=== PATIENT | male | born 1940 | race Caucasian/White ===

== ENCOUNTER 2019-10-20 13:58 | Inpatient (IN) | payer MEDICARE ==
[~2019-10-20] VITALS: Ht 167.6 cm; Wt 68.0 kg
[2019-10-20] VITALS (7 sets, daily range): BP systolic 130–153; BP diastolic 80–93
--- NOTE | 2019-10-20 13:58 | NUR ---
BIB [facility], PT BROUGHT DIRECTLY TO ROOM 2A, AND NURSING STAFF AT BEDSIDE.
--- NOTE | 2019-10-20 14:00 | NUR ---
TELESTROKE CALLED BY BERTRAND DORADO RN.
--- NOTE | 2019-10-20 14:00 | NUR ---
CODE STROKE ACTIVATED BY DR. LOPEZ.
--- NOTE | 2019-10-20 14:03 | NUR ---
Blood specimens drawn by surgical technology instructor.
--- NOTE | 2019-10-20 14:06 | NUR ---
PT TO CT VIA [facility] WITH ACLS GUIDELINES IN PLACE WITH CHIEF PRIVACY OFFICER AND MJRN (NURSING HEALTH ADMINISTRATION TEACHER).
[2019-10-20 14:11] LABS: BASOPHILS % (AUTO) 0.3 % (0.0-2.0); HEMOGLOBIN 15.1 g/dL (12.5-16.3); LYMPHOCYTES # (AUTO) 0.2 K/uL (20.0-40.0); LYMPHOCYTES % (AUTO) 1.3 % (20.5-51.5); MEAN CORPUSCULAR HEMOGLOBIN 37.6 uug (23.8-33.4); MEAN CORPUSCULAR HGB CONC 34 g/dL (32.5-36.3); MEAN CORPUSCULAR VOLUME 109.5 fL (73.0-96.2); MONOCYTES % (AUTO) 8.2 % (0.0-11.0); NEUTROPHILS # (AUTO) 11.3 K/uL (1.8-8.9); NEUTROPHILS % (AUTO) 90.2 % (38.5-71.5); PLATELET COUNT (AUTO) 312 K/uL (152-348); RED BLOOD CELL COUNT(AUTO) 4.01 MIL/uL (4.06-5.63); WHITE BLOOD COUNT (AUTO) 12.5 K/uL (3.6-10.2)
[2019-10-20 14:20] LABS: CREATININE 1.1 mg/dL (0.6-1.3); POTASSIUM 4.1 mmol/L (3.5-5.1)
--- NOTE | 2019-10-20 14:20 | NUR ---
PT BACK FROM CT.
[2019-10-20 14:26] LABS: BILIRUBIN,DIRECT 0.3 mg/dL (0.0-0.2); BILIRUBIN,TOTAL 1.2 mg/dL (0.2-1.0)
--- NOTE | 2019-10-20 14:45 | NUR ---
DR mendoza made aware of Pt's elevated BP and HR.
--- NOTE | 2019-10-20 14:45 | NUR ---
Pt has healing wound on rt coppola.
[2019-10-20] MEDS ORDERED: IV NORMAL SALINE 1000 ML BAG IV ONE (15:15)
[2019-10-20 15:20] LABS: *BILIRUBIN,URIN 2+ (NEGATIVE); *BLOOD, URINE 2+ (NEGATIVE); *COLOR,URINE AMBER (YELLOW); *KETONES,URINE 1+ (NEGATIVE); *UROBILINOGEN,URINE 0.2 E.U./dl (NORMAL); LEUKOCYTE ESTERASE ,URINE NEGATIVE (NEGATIVE); NITRITE, URINE NEGATIVE (NEGATIVE); PH,URINE 5.5 (5.0-8.0); UGLUCOSE NEGATIVE (NEGATIVE)
[2019-10-20 15:37] LABS: *CLARITY,URINE HAZY (CLEAR)
[2019-10-20 15:39] LABS: MUCUS,URINE MANY /LPF (0-FEW); SQUAMOUS EPITHELIAL CELL,UR FEW /HPF (NONE SEEN); WBC,URINE 0-3 /HPF (0-3)
[2019-10-20] MEDS ORDERED: MEROPENEM 1,000 MG in IV NORMAL SALINE 250 ML IV ONE (15:45)
[2019-10-20] MEDS ORDERED: VANCOMYCIN IV 1,000 MG in IV DEXTROSE 5% 250 ML IV ONE (15:45)
--- NOTE | 2019-10-20 16:00 | NUR ---
Per he has spoken with the patient regarding a lumbar puncture and the patient gave verbal consent. Pt is unable to sign written consent due to current medical condition.
[2019-10-20] MEDS ORDERED: LORAZEPAM 2 MG/1 ML VIAL ONE (16:09)
--- NOTE | 2019-10-20 16:10 | NUR ---
LUMBAR PUNCTURE DONE BY DR. LOPEZ, SPINAL FLUID SPECIMENS COLLECTED BY DR. LOPEZ (TUBES 1-4) AND BROUGHT TO LAB BY MYSELF.
[2019-10-20 16:12] LABS: BAND % (MANUAL) 18 % (0-10); LYMPHOCYTES % (MANUAL) 3 % (20-40); MONOCYTES % (MANUAL) 6 % (2-10); NEUTROPHILS % (MANUAL) 73 % (42-75)
[2019-10-20] MEDS ORDERED: LORAZEPAM 2 MG/1 ML VIAL IV ONE (16:15)
[2019-10-20] MEDS ORDERED: ASPIRIN 81 MG TAB.CHEW PO ONE (16:15)
[2019-10-20] MEDS ORDERED: NITROGLYCERIN OINT 1 GM PACKET TP ONE ×2 (16:15→16:19)
[2019-10-20] MEDS ORDERED: ASPIRIN 81 MG TAB.CHEW ONE (16:19)
[2019-10-20] MEDS ORDERED: MEROPENEM 1GM/NS 100ML IVPB **ER PYXIS ONLY IV ONE (16:20)
[2019-10-20] MEDS ORDERED: VANCOMYCIN IV 200 ML ONE (16:20)
[2019-10-20] MEDS ORDERED: HYDROCORTISONE SOD SUCCINATE 100 MG/2 ML VIAL IV ONE ×2 (16:30→16:57)
[2019-10-20 16:39] LABS: CSF GLUCOSE 59 mg/dL (40-70); CSF PROTEIN 68 mg/dL (15-45)
--- NOTE | 2019-10-20 17:08 | NUR ---
Pt is more disoriented,and confused. DR Evangelista made aware. pt's o2 sat on RA dropped to 88%, aware and ordered ABG prior to have him on O2.
--- NOTE | 2019-10-20 17:12 | NUR ---
RT at the bedside for ABG.
--- NOTE | 2019-10-20 17:18 | NUR ---
ER spoke to Dr Corbin, neurologist re pt's status.
[2019-10-20 17:26] LABS: ABG BASE EXCESS -2.8 mmol/L; ABG HCO3 20.6 mmol/L; ABG PCO2 31.8 mmHg (35.0-45.0); ABG PH 7.429 (7.350-7.450); ABG PO2 66.5 mmHg (75.0-100.0); ABG SITE RIGHT RADIAL; ABG TOTAL HEMOGLOBIN 12.9 G/dL (13.5-18.0); COHb 1.8 % (0.5-1.5); MetHb 0.3 % (0.0-1.5); VENT MODE ROOM AIR
[2019-10-20] MEDS ORDERED: BLOOD SUGAR DIAGNOSTIC 1 EACH STRIP VI SCH ×2 (18:00)
--- NOTE | 2019-10-20 18:15 | NUR ---
Pt received from ER A&Ox1, confused. VSS wnl. Pt stable and nad noted upon admission.
[2019-10-20 18:41] LABS: *AMPHETAMINE, URINE NEGATIVE (NEGATIVE); *BARBITURATE, URINE NEGATIVE (NEGATIVE); *CANNABINOID, URINE NEGATIVE (NEGATIVE); *COCCAINE, URINE NEGATIVE (NEGATIVE); *OPIATE, URINE NEGATIVE (NEGATIVE); *PHENCYCLIDINE SCREEN,URINE NEGATIVE (NEGATIVE)
--- NOTE | 2019-10-20 19:30 | NUR ---
Matthieu barnett is here to see patient given an update on patient's condition , patient's awake , with episodes of forgetfulness , vs stable , roberts catheter intact , no slurred speech able to use both hands , no fever , dinner offered and accepted , friends at bedside
[2019-10-20] MEDS: BLOOD SUGAR DIAGNOSTIC 1 EACH STRIP VI SCH (21:00)
[2019-10-20] MEDS: IV NS 1000 ML 1,000 ML IV PRN (21:28)
[2019-10-20] MEDS: ENOXAPARIN SODIUM 40 MG/0.4 ML DISP.SYRIN SQ SCH (21:30)
[2019-10-20] MEDS: SIMVASTATIN 40 MG TABLET PO SCH (21:30)
--- NOTE | 2019-10-20 23:30 | NUR ---
doctor called for blood sugar 176 , no order received , patient was fed dinner and ate 75 %
[2019-10-21] VITALS (12 sets, daily range): BP systolic 119–186; BP diastolic 61–102
--- NOTE | 2019-10-21 | NUR ---
* Maintains vital signs WNL * Maintains urine output > 30 ml/hr * Evidences normal skin turgor * Maintains optimal lab values * Maintains urine specific gravity WNL Addendum: 10/21/19 at 0000 by CARLA BARRETT RN Amended: Alissa added. Addendum: 10/21/19 at 0001 by CARLA BARRETT RN Amended: Links added. Addendum: 10/21/19 at 0001 by CARLA BARRETT RN Amended: Links added. Addendum: 10/21/19 at 0001 by CARLA BARRETT RN Amended: Links added. Addendum: 10/21/19 at 0002 by CARLA BARRETT RN Amended: Links added.
--- NOTE | 2019-10-21 | NUR ---
patient is awake , clear speech able to follow command with intermittent forgetful ness
--- NOTE | 2019-10-21 00:01 | NUR ---
* Maintains blood gasses WNL * Evidences usual mental status * Exhibits usual skin color Addendum: 10/21/19 at 0001 by CARLA BARRETT RN Amended: Alissa added. Addendum: 10/21/19 at 0001 by CARLA BARRETT RN Amended: Alissa added. Addendum: 10/21/19 at 0002 by CARLA BARRETT RN Amended: Links added.
--- NOTE | 2019-10-21 00:01 | NUR ---
* Maintains body temperature below 39 C degrees * Maintains respiratory rate and heart rate WNL * Maintains optimal lab values Addendum: 10/21/19 at 0001 by CARLA BARRETT RN Amended: Alissa solis. Addendum: 10/21/19 at 0001 by CARLA BARRETT RN Amended: Alissa added. Addendum: 10/21/19 at 0001 by CARLA BARRETT RN Amended: Links added. Addendum: 10/21/19 at 0002 by CARLA BARRETT RN Amended: Links added.
--- NOTE | 2019-10-21 00:01 | NUR ---
Maintains vital signs WNL * Evidences no purulent drainage from wounds, incisions, and tubes * Maintains optimal lab values Addendum: 10/21/19 at 0001 by CARLA BARRETT RN Amended: Links added. Addendum: 10/21/19 at 0002 by CARLA BARRETT RN Amended: Links added.
--- NOTE | 2019-10-21 00:02 | NUR ---
* Understands anatomy and physiology * Describes reportable s/s * Understands treatment plan * Understands medication regime Addendum: 10/21/19 at 0002 by CARLA BARRETT RN Amended: Links added.
[2019-10-21 04:51] LABS: BASOPHILS % (AUTO) 0.1 % (0.0-2.0); EOSINOPHILS % (AUTO) 0.1 % (0.0-7.0); HEMATOCRIT 36.2 % (36.7-47.1); HEMOGLOBIN 12.4 g/dL (12.5-16.3); LYMPHOCYTES # (AUTO) 0.1 K/uL (20.0-40.0); LYMPHOCYTES % (AUTO) 1.5 % (20.5-51.5); MEAN CORPUSCULAR HEMOGLOBIN 37.8 uug (23.8-33.4); MEAN CORPUSCULAR HGB CONC 34 g/dL (32.5-36.3); MONOCYTES # (AUTO) 0.7 K/uL (2.0-10.0); MONOCYTES % (AUTO) 7.7 % (0.0-11.0); NEUTROPHILS # (AUTO) 7.9 K/uL (1.8-8.9); NEUTROPHILS % (AUTO) 90.6 % (38.5-71.5); PLATELET COUNT (AUTO) 225 K/uL (152-348); RED BLOOD CELL COUNT(AUTO) 3.29 MIL/uL (4.06-5.63); WHITE BLOOD COUNT (AUTO) 8.7 K/uL (3.6-10.2)
[2019-10-21 05:16] LABS: BAND % (MANUAL) 1 % (0-10); LYMPHOCYTES % (MANUAL) 2 % (20-40); MONOCYTES % (MANUAL) 6 % (2-10); NEUTROPHILS % (MANUAL) 91 % (42-75)
[2019-10-21 05:18] LABS: CREATININE 0.8 mg/dL (0.6-1.3); POTASSIUM 4.1 mmol/L (3.5-5.1)
--- NOTE | 2019-10-21 05:30 | NUR ---
awake , able to follow command , speech clear , no distress , resting comfortbaly , roberts , iv intact
[2019-10-21] MEDS: IV NS 1000 ML 1,000 ML IV PRN ×2 (06:12→19:54)
[2019-10-21] MEDS: BLOOD SUGAR DIAGNOSTIC 1 EACH STRIP VI SCH ×2 (06:49→11:33)
--- NOTE | 2019-10-21 07:57 | NUR ---
OT here to see pt for eval.
[2019-10-21] MEDS: ASPIRIN EC 81 MG TABLET.DR PO SCH (08:00)
--- NOTE | 2019-10-21 09:57 | NUR ---
Physical therapy here to see pt for eval.
--- NOTE | 2019-10-21 11:10 | NUR ---
WOUND CARE CONSULT: PT PRESENTS WITH MULTIPLE WOUNDS PRESENT ON ADMISSION INCLUDING WOUND TO RT LATERAL LOWER LEG, LARGE SKIN TEAR TO LEFT UPPER ARM, SKIN TEARS TO RT ARM AND SHOULDER AND SKIN TEAR TO LEFT LOWER LEG WITH MULTIPLE AREAS OF BRUISING AND SKIN DISCOLORATION. RECOMMEND DPM CONSULT. DR OVALLES NOTIFIED OF DPM CONSULT REQUEST. PT ABLE TO ASSIST WITH TURNING AND REPOSITIONING AT THIS TIME. JONATHAN REES NOTED. PT CONTINENT AT THIS TIME. WILL SEE PRN. RECOMMENDATIONS MADE FOR SKIN PROTECTION AND WOUND CARE. DISCUSSED WITH NURSING STAFF. DEFER TO PODIATRY FOR LOWER EXTREMITIES. MD IN AGREEMENT WITH PLAN OF CARE. Addendum: 10/21/19 at 1113 by KENRICK HARDIN RN Amended: Links added.
--- NOTE | 2019-10-21 11:38 | NUR ---
Dr. Ferrara here to see pt. Full report given. okay to downgrade pt to telemetry status.
--- NOTE | 2019-10-21 12:11 | NUR ---
US tech here to see pt for 2D Echocardiogram.
--- NOTE | 2019-10-21 12:14 | NUR ---
Spoke with Dr. Ferrara and made aware regarding pt's persistently high blood pressure SBP 170's. New orders received and carried out.
[2019-10-21] MEDS: LISINOPRIL 20 MG TABLET PO SCH (12:26)
--- NOTE | 2019-10-21 15:18 | NUR ---
It Systems Administrator Consultation: 1:35pm: SW met with patient today. Patient is a 79 year old male, alert, oriented x 4. Patient was in his assigned CCU bed and receptive to meeting with this SW. Patient lives alone in a house in [place]. Patient reports never being , and not having any children. 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 Patient states that he had a fall at home in the hallway, possibly from his sneakers getting caught on the carpet. Patient believes he fell in the hallway, but was then found by his maid in the bathroom. Patient states not being able to remember the details of his fall and how he ended up in the bathroom. Patient's affect and behavior were WNL, and he maintained appropriate eye contact throughout this interview. Patient's thought process and speech were clear. Discharge plans discussed and patient states he will be returning home. Patient is closely followed by his PCP, Dr. Gutierrez Lama, , who has been the patient's physician for 20 years. Patient also has a close friend, Sangeetha Joseph, , who patient states is his emergency contact. SW administered the PHQ-9, and patient scored a 0 on it. Patient reported no concern over his emotional well-being. SW generated a discussion with the patient regarding supportive services, and patient inquired about resources on companies that make safety adjustments/stair installations for seniors living in their home and resources for caregiver agencies, stating that he may want to consider having a caregiver in the future. GRICEL provided the following resources: 1) Caregiver agencies: [facility], and [facility] [phone] 2) Companies for safety adjustments: [employer] [phone]; [employer] [phone]; [employer] [phone]; [employer] [phone]. No further SS interventions needed at this time, however security services manager will be available to the patient, if needed. Case management will assist patient with discharge planning.
--- NOTE | 2019-10-21 19:30 | NUR ---
CALLED EPIC SERVICE C/O PATIENT BP 184/65 HR 100 , PATIENT ASYMPTOMATIC PER SERVICE IT WILL BE SHARDA NOLAN .
--- NOTE | 2019-10-21 19:45 | NUR ---
PATIENT REFUSED DINNER FOR NOW AND WANTS ONLY HOT COFFEE ,GIVEN AND ASSISTED . HOB AND ASPIRATION PRECAUTION OBSERVED .
--- NOTE | 2019-10-21 20:00 | NUR ---
1929 -CALLED [facility] AGAIN C/O PATIENT BP SECOND CALL PER SERVICE IT WILL BE SHARDA NOWAK . AWAITING CALL BACK .
[2019-10-21] MEDS: SIMVASTATIN 40 MG TABLET PO SCH (20:12)
--- NOTE | 2019-10-21 20:30 | NUR ---
SPOKED WITH LAM NOWAK FROM [facility] AND DICTATED PATIENTS BP WITH ORDERS.
--- NOTE | 2019-10-21 20:50 | NUR ---
given hydralazine 10 mg ivp .pt bp 189/95 (132) MAP .HR 115,continue to monitor bp .
[2019-10-21] MEDS: hydrALAZINE HCL 20 MG/1 ML VIAL IV PRN (20:51)
[2019-10-21] MEDS: ENOXAPARIN SODIUM 40 MG/0.4 ML DISP.SYRIN SQ SCH (21:00)
--- NOTE | 2019-10-21 21:08 | NUR ---
patient refused Lovenox even after long teaching of benefits . he said he dont want to taqke medication and satrt on something he dont take at home .
--- NOTE | 2019-10-21 21:32 | NUR ---
report given to RN CITLALY ,USING SBARQ, LATEST BP 173/90 MM/HG ,given hydralazine ivf 10 mg advised INCOMING rn to monitor bp , no respiratory distress ,breathing even and unlabored rr 18 saturation 98 % .
--- NOTE | 2019-10-21 22:10 | NUR ---
Received patient from CCU transferred to Telemetry noted w/ Sinus Tach. Patient is A&Ox2. On O2 at 2lpm via NC. IV on R AC 20g intact and patent w/ IVF infusing. F/C intact and draining clear yellow urine. Patient noted w/ multiple skin discoloration/bruising on his both upper and lower extremities. Safety measures observed. Call light within reach
[2019-10-22 00:39] VITALS: BP 138/87
--- NOTE | 2019-10-22 01:00 | NUR ---
Received patient is laying in bed. A/O 2-3 with episodes of confusion. No distress noted. O2 2L NC, TELE ST at 115. BP 138/57. Temp 99.9. Notes bruises in bilateral upper extremities. Safety initiated. Call light within reach. Will continue to monitor.
--- NOTE | 2019-10-22 01:46 | NUR ---
Called MD to report fever despite cooling measures. Tylenol ordered and given. Will continue to monitor.
[2019-10-22] MEDS: ACETAMINOPHEN 325 MG TABLET PO PRN ×3 (02:31→20:47)
[2019-10-22] MEDS: hydrALAZINE HCL 20 MG/1 ML VIAL IV PRN (05:30)
--- NOTE | 2019-10-22 05:32 | NUR ---
BP elevated 174/90 HR 105. PRN hydralazine 10 mg given IVP, will closely monitor.
--- NOTE | 2019-10-22 05:35 | NUR ---
Patient slept t/o shift. Patient is A/O x 3. Right arm is still weak and painful when he tries to lift it up. Denies SOB. TELE ST at 105. Burns draining yellow clear urine. Patient no longer has a temp; 98.4. All meds given as ordered. All needs met. Safety and comfort measures maintained t/o shift.
[2019-10-22 05:47] VITALS: BP 174/90
[2019-10-22 06:21] LABS: BASOPHILS % (AUTO) 0.2 % (0.0-2.0); EOSINOPHILS # (AUTO) 0.1 K/uL (0.0-0.7); EOSINOPHILS % (AUTO) 1.1 % (0.0-7.0); HEMATOCRIT 36.1 % (36.7-47.1); HEMOGLOBIN 12.2 g/dL (12.5-16.3); LYMPHOCYTES # (AUTO) 0.1 K/uL (20.0-40.0); LYMPHOCYTES % (AUTO) 1.8 % (20.5-51.5); MEAN CORPUSCULAR HEMOGLOBIN 37.4 uug (23.8-33.4); MEAN CORPUSCULAR HGB CONC 34 g/dL (32.5-36.3); MEAN CORPUSCULAR VOLUME 110.7 fL (73.0-96.2); MONOCYTES # (AUTO) 0.9 K/uL (2.0-10.0); MONOCYTES % (AUTO) 11.6 % (0.0-11.0); NEUTROPHILS # (AUTO) 6.4 K/uL (1.8-8.9); NEUTROPHILS % (AUTO) 85.3 % (38.5-71.5); PLATELET COUNT (AUTO) 250 K/uL (152-348); RED BLOOD CELL COUNT(AUTO) 3.26 MIL/uL (4.06-5.63); WHITE BLOOD COUNT (AUTO) 7.5 K/uL (3.6-10.2)
[2019-10-22 06:32] LABS: CREATININE 0.6 mg/dL (0.6-1.3); MAGNESIUM 1.9 mg/dL (1.8-2.4); PHOSPHOROUS 2.4 mg/dL (2.5-4.9); POTASSIUM 3.3 mmol/L (3.5-5.1)
[2019-10-22] MEDS: IV NS 1000 ML 1,000 ML IV PRN ×2 (06:40→23:54)
--- NOTE | 2019-10-22 06:40 | NUR ---
BP now 156/76 after PRN Hydralazine. Will closely monitor.
--- NOTE | 2019-10-22 08:00 | NUR ---
RECEIVED PATIENT RESTING IN BED, AWAKE, ALERT, AND VERBALLY RESPONSIVE. NO SIGNS OF SLURRING OF SPEECH, ABLE TO FOLLOW COMMANDS. NOW WEAKNESS EXCEPT ON THE RIGHT ARM DUE TO THE FALL. ON O2 @ 2L SATURATING 93% WITH SLIGHT SOB ON EXERTION. NO WHEEZING OR SIGNS OF DISTRESS. SINUS TACHYCARDIA ON MONITOR 120.
[2019-10-22 08:06] LABS: TRIIODOTHYRONINE, FREE 1.5 pg/mL (2.0-4.4)
[2019-10-22] MEDS: ASPIRIN EC 81 MG TABLET.DR PO SCH (09:09)
[2019-10-22] MEDS: LISINOPRIL 20 MG TABLET PO SCH (09:11)
[2019-10-22 11:09] VITALS: BP 167/80
[2019-10-22] MEDS ORDERED: POTASSIUM CHLORIDE 20 MEQ POWDER PACKET PO ONE (11:30)
[2019-10-22] MEDS ORDERED: AMLODIPINE 5 MG TABLET PO SCH (11:30)
--- NOTE | 2019-10-22 12:00 | NUR ---
DR. HERNANDEZ AT BEDSIDE. EXAMINED PATIENT AND AWARE OF FAST HR-130-140 SR. PATIENT'S TEMP WAS 101.8. MD NOTIFIED AND ORDERED STAT BLOOD CULTURE, EKG AND CHEST X-RAY.
[2019-10-22] MEDS: AMLODIPINE 5 MG TABLET PO SCH (12:35)
[2019-10-22] MEDS ORDERED: VANCOMYCIN IV 1,500 MG in IV DEXTROSE 5% 500 ML IV SCH (14:00)
[2019-10-22] MEDS: PIPERACILLIN SODIUM/TAZOBACTAM 4.5 G in IV DEXTROSE 5% 50 ML IV SCH ×2 (14:38→21:01)
--- NOTE | 2019-10-22 15:10 | NUR ---
PHARMACY CLINICAL NOTES ( VANCOMYCIN DOSING) S: 79 YO male, who became febrile per MD's note: " Sepsis, likely pneumonia". MD ordered Zosyn and Vancomycin. O: BUN/SCR 16/0.6, WBC 7.5, T max 102.2, DOSING WT 68 KG , T 1/2 11.18 HRS A/P: Will dose Vanco as 1250 mg q16h , first dose now , esimate peak of 39 and trough of 16. pt is on Zosyn 4.5 gm q8h as well. Plan is to order level prior to 4th dose and follow up with renal fxn daily and adjust the dose as becomes necessary.
[2019-10-22 15:18] VITALS: BP 159/79
[2019-10-22] MEDS ORDERED: NEUTRA PHOS PACKET PO ONE (15:30)
[2019-10-22] MEDS: VANCOMYCIN IV 1,250 MG in IV DEXTROSE 5% 250 ML IV SCH (16:06)
--- NOTE | 2019-10-22 18:27 | NUR ---
SEEN BY ANASTACIA FOR ID FOLLOW-UP SEE NOTES
--- NOTE | 2019-10-22 19:30 | NUR ---
RECEIVED PT AWAKE, ALERT AND ORIENTEDX3. PT IN NO ACUTE DISTRESS. IV INTACT. SAFETY AND COMFORT PROVIDED. WILL CONTINUE TO MONITOR.
[2019-10-22 20:47] VITALS: BP 168/98
[2019-10-22] MEDS: SIMVASTATIN 20 MG TABLET PO SCH (20:47)
[2019-10-22] MEDS: ENOXAPARIN SODIUM 40 MG/0.4 ML DISP.SYRIN SQ SCH (20:49)
[2019-10-22 21:33] VITALS: BP 149/83
--- NOTE | 2019-10-22 21:50 | NUR ---
GIVEN TYLENOL FOR 99.6 TEMPERATURE. COOLING MEASURES DONE. RECENT TEMP IS 98.9. BLOOD PRESSURE WAS 149/83. PT IN NO ACUTE DISTRESS.
[2019-10-23] VITALS (7 sets, daily range): BP systolic 149–183; BP diastolic 87–102
[2019-10-23] MEDS: PIPERACILLIN SODIUM/TAZOBACTAM 4.5 G in IV DEXTROSE 5% 50 ML IV SCH ×3 (05:09→21:30)
[2019-10-23] MEDS: ACETAMINOPHEN 325 MG TABLET PO PRN ×3 (05:09→15:56)
[2019-10-23 05:49] LABS: CREATININE 0.8 mg/dL (0.6-1.3); MAGNESIUM 1.6 mg/dL (1.8-2.4); PHOSPHOROUS 2.4 mg/dL (2.5-4.9); POTASSIUM 3.6 mmol/L (3.5-5.1)
[2019-10-23 06:07] LABS: BASOPHILS # (AUTO) 0.1 K/uL (0.0-8.0); BASOPHILS % (AUTO) 0.8 % (0.0-2.0); EOSINOPHILS # (AUTO) 0.1 K/uL (0.0-0.7); EOSINOPHILS % (AUTO) 1.4 % (0.0-7.0); HEMATOCRIT 33.1 % (36.7-47.1); HEMOGLOBIN 11.3 g/dL (12.5-16.3); LYMPHOCYTES # (AUTO) 0.1 K/uL (20.0-40.0); LYMPHOCYTES % (AUTO) 1.9 % (20.5-51.5); MEAN CORPUSCULAR HEMOGLOBIN 37.4 uug (23.8-33.4); MEAN CORPUSCULAR HGB CONC 34 g/dL (32.5-36.3); MEAN CORPUSCULAR VOLUME 109.6 fL (73.0-96.2); MONOCYTES # (AUTO) 0.8 K/uL (2.0-10.0); MONOCYTES % (AUTO) 10.4 % (0.0-11.0); NEUTROPHILS # (AUTO) 6.6 K/uL (1.8-8.9); NEUTROPHILS % (AUTO) 85.5 % (38.5-71.5); PLATELET COUNT (AUTO) 241 K/uL (152-348); RED BLOOD CELL COUNT(AUTO) 3.02 MIL/uL (4.06-5.63); WHITE BLOOD COUNT (AUTO) 7.7 K/uL (3.6-10.2)
--- NOTE | 2019-10-23 06:15 | NUR ---
PT SLEPT COMFORTABLY. PT IN NO ACUTE DISTRESS. IV INTACT. CASTILLO INTACT.PRESCRIBED MEDICATION GIVEN AND PT TOLERATED IT WELL. PT TEMP IS ON THE HIGH SIDE. COOLING MEASURES DONE AND TYLENOL GIVEN. ALL NEEDS ARE MET.SAFETY AND COMFORT PROVIDED. WILL ENDORSE TO INCOMING NURSE FOR CONTINUITY OF CARE.
--- NOTE | 2019-10-23 08:00 | NUR ---
Pt is in no acute distress. Pt alert and oriented x 4. Discussed plan of care with patient re: temperature management and fall precaution. Pt agreeable with plan of care. Call light is within reach.
[2019-10-23] MEDS ORDERED: AMLODIPINE 5 MG TABLET PO SCH (09:00)
[2019-10-23] MEDS: VANCOMYCIN IV 1,250 MG in IV DEXTROSE 5% 250 ML IV SCH (09:04)
[2019-10-23] MEDS: ASPIRIN EC 81 MG TABLET.DR PO SCH (09:23)
[2019-10-23] MEDS: AMLODIPINE 5 MG TABLET PO SCH (09:25)
[2019-10-23] MEDS: LISINOPRIL 20 MG TABLET PO SCH (09:25)
--- NOTE | 2019-10-23 11:00 | NUR ---
PHARMACY CLINICAL NOTES ( VANCOMYCIN DOSING) S: 79 YO male, who became febrile per MD's note: " Sepsis, likely pneumonia". MD ordered Zosyn and Vancomycin. O: BUN/SCR 14/0.8, WBC 7.5 (10/22), T max 99, DOSING WT 68 KG , T 1/2 11.18 HRS A/P: Will dose Vanco as 1250 mg q16h for esimate peak of 39 and trough of 16. 2nd dose today at 0800. Will order torugh before 4th scheduled dose (due tomorrow at 1530). Will check level when available aand adjust as needed. Will follow
[2019-10-23] MEDS: IV NS 1000 ML 1,000 ML IV PRN (13:11)
[2019-10-23] MEDS: MAGNESIUM SULFATE/D5W 100 ML IV SCH ×2 (14:50→15:57)
--- NOTE | 2019-10-23 15:30 | NUR ---
Current temp 99.3 cooling measures and Tylenol effective. B/P rechecked and SBP @ 150's. Notified Dr Navarrete of tachycardia.
[2019-10-23] MEDS ORDERED: NEUTRA PHOS PACKET PO ONE (15:45)
--- NOTE | 2019-10-23 16:30 | NUR ---
Notified Dr Ferrara and made sure that he is aware of lumber puncture results CsF WBC 23.
--- NOTE | 2019-10-23 19:00 | NUR ---
PATIENT ALERT ORIENTED, NO SOB NO CHEST PAIN. PATIENT TELE MONITOR SINUS RHYTHM SINUS TACHY 109. PATIENT HAS LOW GRADE FEVER 99.4 GIVEN COOLING MEASURES. PATIENT DENIES PAIN AT THIS TIME. PATIENT BP ELEVATED, WILL RECHECK BP IN FEW MINUTES. PATIENT HAS NO S/S OF DISTRESS.
--- NOTE | 2019-10-23 19:02 | NUR ---
Pt is in no acute distress. Pt alert and oriented x 4. temperature management and fall precaution maintained this shift. fever 99.2 now, keeping cooling measures Call light is within reach.
[2019-10-23] MEDS ORDERED: OSELTAMIVIR PHOSPHATE 75 MG CAPSULE ONE (21:28)
[2019-10-23] MEDS: SIMVASTATIN 20 MG TABLET PO SCH (21:31)
[2019-10-23] MEDS: ENOXAPARIN SODIUM 40 MG/0.4 ML DISP.SYRIN SQ SCH (21:32)
[2019-10-23] MEDS: OSELTAMIVIR PHOSPHATE 75 MG CAPSULE PO SCH (21:42)
[2019-10-24] VITALS: BP 163/88
[2019-10-24] MEDS: VANCOMYCIN IV 1,250 MG in IV DEXTROSE 5% 250 ML IV SCH ×2 (00:15→17:47)
[2019-10-24] MEDS: hydrALAZINE HCL 20 MG/1 ML VIAL IV PRN ×3 (00:41→20:19)
[2019-10-24] MEDS: ACETAMINOPHEN 325 MG TABLET PO PRN (00:41)
--- NOTE | 2019-10-24 01:07 | NUR ---
PATIENT ALERT ORIENTED, NO CHEST PAIN, PATIENT WAS PUT ON OXYGEN AT 2LPM OXYGEN SAT BELOW 90. PATIENT HAS TEMP 101. TYLENOL 650MG PO GIVEN AND COOLING MEASURE GIVEN, PATIENT HAS NO S/S OF DISTRESS. NOTIFY DR. MARINELLI AWAITING FOR RESPONSE.
--- NOTE | 2019-10-24 01:28 | NUR ---
Dr. Kauffman ordered Rocephin 2g iv 24hour. Pt in no acute distress. Will continue to monitor.
[2019-10-24] MEDS ORDERED: CEFTRIAXONE 2 G VIAL IV SCH (01:45)
[2019-10-24] MEDS ORDERED: CEFTRIAXONE 2 G in IV DEXTROSE 5% 100 ML IV SCH (02:00)
[2019-10-24] MEDS ORDERED: CEFTRIAXONE 1 G VIAL ONE (02:38)
[2019-10-24] MEDS: IV NS 1000 ML 1,000 ML IV PRN ×2 (03:00→17:47)
[2019-10-24 05:00] VITALS: BP 163/73
[2019-10-24] MEDS: PIPERACILLIN SODIUM/TAZOBACTAM 4.5 G in IV DEXTROSE 5% 50 ML IV SCH ×2 (05:19→15:07)
[2019-10-24] MEDS ORDERED: HYDROCODONE/APAP 5-325MG TABLET PO PRN (06:00)
--- NOTE | 2019-10-24 06:00 | NUR ---
PATIENT COMPLAIN OF SEVERE BODY PAIN AND HEADACHES, NOTIFY DR. BIGGS WITH ORDER.
[2019-10-24 06:35] LABS: BASOPHILS % (AUTO) 0.5 % (0.0-2.0); EOSINOPHILS # (AUTO) 0.1 K/uL (0.0-0.7); HEMATOCRIT 33.2 % (36.7-47.1); HEMOGLOBIN 11.4 g/dL (12.5-16.3); LYMPHOCYTES # (AUTO) 0.1 K/uL (20.0-40.0); LYMPHOCYTES % (AUTO) 1.7 % (20.5-51.5); MEAN CORPUSCULAR HEMOGLOBIN 37.4 uug (23.8-33.4); MEAN CORPUSCULAR HGB CONC 34 g/dL (32.5-36.3); MEAN CORPUSCULAR VOLUME 108.8 fL (73.0-96.2); MONOCYTES # (AUTO) 0.9 K/uL (2.0-10.0); MONOCYTES % (AUTO) 10.3 % (0.0-11.0); NEUTROPHILS # (AUTO) 7.3 K/uL (1.8-8.9); NEUTROPHILS % (AUTO) 86.5 % (38.5-71.5); PLATELET COUNT (AUTO) 228 K/uL (152-348); RED BLOOD CELL COUNT(AUTO) 3.05 MIL/uL (4.06-5.63); WHITE BLOOD COUNT (AUTO) 8.4 K/uL (3.6-10.2)
[2019-10-24 06:48] LABS: CREATININE 0.9 mg/dL (0.6-1.3); MAGNESIUM 1.9 mg/dL (1.8-2.4); POTASSIUM 3.2 mmol/L (3.5-5.1)
--- NOTE | 2019-10-24 07:44 | NUR ---
PATIENT ALERT ORIENTED, NO SOB NO CHEST PAIN, TELE MONITOR SINUS TACHY 103, PATIENT HAS NO COMPLAIN OF HEADACHES ANYMORE, REFUSED PAIN MEDS AT THIS TIME, AFEBRILE, CONT TO MONITOR.
[2019-10-24] MEDS: ALLOPURINOL 100 MG TABLET PO SCH (08:52)
[2019-10-24] MEDS: predniSONE 5 MG TABLET PO SCH (08:52)
[2019-10-24] MEDS: LEVOTHYROXINE SODIUM 150 MCG TABLET PO SCH (08:52)
[2019-10-24] MEDS: ASPIRIN EC 81 MG TABLET.DR PO SCH (08:52)
[2019-10-24] MEDS ORDERED: predniSONE 2.5 MG TABLET PO SCH (09:00)
[2019-10-24] MEDS: OSELTAMIVIR PHOSPHATE 75 MG CAPSULE PO SCH ×2 (09:01→20:18)
[2019-10-24] MEDS: LISINOPRIL 20 MG TABLET PO SCH (09:03)
[2019-10-24] MEDS: AMLODIPINE 5 MG TABLET PO SCH (09:04)
--- NOTE | 2019-10-24 09:09 | NUR ---
PHARMACY CLINICAL NOTES ( VANCOMYCIN DOSING) S: 79 YO male, who became febrile per MD's note: " Sepsis, likely pneumonia". MD ordered Zosyn and Vancomycin. O: BUN/SCR 13/0.9, WBC 8.4, T max 101, DOSING WT 68 KG , T 1/2 11.18 HRS Trough pending today at 1530 A/P: Will continue Vanco as 1250 mg q16h for esimate peak of 39 and trough of 16. Trough due today at 1530. Will check when available and adjust regimen as needed. Will follow Addendum: 10/24/19 at 1631 by TRACI MOORE ADM TROUGH LEVEL 15 CONTINUE SAME DOSE OF VANCOMYCIN 1GM Q16H
[2019-10-24] MEDS ORDERED: POTASSIUM CHLORIDE 20 MEQ POWDER PACKET PO ONE (10:30)
[2019-10-24] MEDS ORDERED: LISINOPRIL 20 MG TABLET PO ONE (10:30)
[2019-10-24] MEDS ORDERED: AMLODIPINE 2.5 MG TABLET PO ONE (10:30)
[2019-10-24] MEDS ORDERED: IOHEXOL 350 100 ML INFUS..BTL ONE ×2 (11:17→12:14)
[2019-10-24] MEDS ORDERED: SWABABLE VALVE TRANSFER SET EA MC ONE (11:17)
[2019-10-24] MEDS ORDERED: IV NORMAL SALINE 250 ML IV ONE (11:17)
[2019-10-24 11:47] VITALS: BP 183/77
[2019-10-24 15:39] VITALS: BP 161/77
--- NOTE | 2019-10-24 19:25 | NUR ---
Patient calm and comfortable through out shift with no signs of distress; patient dressing changed; patient with espisode of high blood pressure; it systems administrator placed 1x orders for blood pressure medication; patient blood pressure reduced to baseline; patient had cta to rule out pe. report given to oncoming nurse.
--- NOTE | 2019-10-24 20:00 | NUR ---
PATIENT ALERT ORIENTED, NO SOB NO CHEST PAIN, TELE MONITOR SINUS TACHY 115, PATIENT COMPLAIN OF GENERALIZED DISCOMFORT, PATIENT BP ELEVATED, WILL MEDICATED FOR ELEVATED BP, AND FOR PAIN. PATIENT HAS MULTIPLE OPEN SKIN ON RIGHT AND LEFT ARMS. PATIENT BILATERAL ARMS OPEN SKIN TEAR ARE WEEPING, CONT TREATMENT ON BOTH ARMS, AND LEG OPEN WOUNDS. CONT TO MONITOR.
[2019-10-24 20:02] VITALS: BP 186/79
[2019-10-24] MEDS: ENOXAPARIN SODIUM 40 MG/0.4 ML DISP.SYRIN SQ SCH (20:23)
[2019-10-24] MEDS: CEFTRIAXONE 1 G in IV DEXTROSE 5% 50 ML IV SCH (21:11)
--- NOTE | 2019-10-24 22:30 | NUR ---
PATIENT ALERT ORIENTED, NO SOB NO CHEST PAIN. AFEBRILE, PATIENT SBP WENT DOWN TO 160, PATIENT HAS NO COMPLAIN OF PAIN, PAIN MEDICATION EFFECTIVE. CONT TO MONITOR.
[2019-10-25 00:07] VITALS: BP 160/86
[2019-10-25 04:00] VITALS: BP 160/67
[2019-10-25] MEDS: ACETAMINOPHEN 325 MG TABLET PO PRN ×2 (05:24→20:33)
--- NOTE | 2019-10-25 06:46 | NUR ---
PATIENT ALERT ORIENTED, NO COMPLAIN OF CHEST PAIN NO SOB NOTED. PATIENT TELE MONITOR SINUS TACHY, PATIENT COMPLAIN OF MILD PAIN, GIVEN TYLENOL FOR MILD PAIN. PATIENT MULTIPLE OPEN SKIN ON RIGHT, LEFT ARMS, R LEG, TX DONE. PATIENT OPEN SKIN WEEPING WITH CLEAR WATER FLUIDS IN MODERATE AMOUNT. WILL GET AN ORDER FOR WOUND. CONSULTS.
--- NOTE | 2019-10-25 06:50 | NUR ---
PATIENT WAS GIVEN COOLING MEASURES FOR LOW GRADE TEMP. TOLERATE WELL.
--- NOTE | 2019-10-25 06:50 | NUR ---
PATIENT STILL HAVE LOW TEMP, BP STABLE AT THIS TIME, CONT TO MONITOR.
[2019-10-25 07:32] LABS: BASOPHILS % (AUTO) 0.3 % (0.0-2.0); EOSINOPHILS # (AUTO) 0.1 K/uL (0.0-0.7); EOSINOPHILS % (AUTO) 1.1 % (0.0-7.0); HEMOGLOBIN 10.3 g/dL (12.5-16.3); LYMPHOCYTES # (AUTO) 0.1 K/uL (20.0-40.0); LYMPHOCYTES % (AUTO) 1.2 % (20.5-51.5); MEAN CORPUSCULAR HEMOGLOBIN 37.4 uug (23.8-33.4); MEAN CORPUSCULAR HGB CONC 34 g/dL (32.5-36.3); NEUTROPHILS # (AUTO) 8.1 K/uL (1.8-8.9); NEUTROPHILS % (AUTO) 86.4 % (38.5-71.5); PLATELET COUNT (AUTO) 261 K/uL (152-348); RED BLOOD CELL COUNT(AUTO) 2.76 MIL/uL (4.06-5.63); WHITE BLOOD COUNT (AUTO) 9.4 K/uL (3.6-10.2)
[2019-10-25 07:46] LABS: CREATININE 0.8 mg/dL (0.6-1.3); MAGNESIUM 1.9 mg/dL (1.8-2.4); PHOSPHOROUS 2.8 mg/dL (2.5-4.9); POTASSIUM 3.3 mmol/L (3.5-5.1)
[2019-10-25 08:06] LABS: *WEST NILE CSF IGG Positive (Negative)
[2019-10-25] MEDS: ASPIRIN EC 81 MG TABLET.DR PO SCH (08:57)
[2019-10-25] MEDS ORDERED: AMLODIPINE 5 MG TABLET PO SCH (09:00)
[2019-10-25] MEDS: VANCOMYCIN IV 1,250 MG in IV DEXTROSE 5% 250 ML IV SCH ×2 (09:05→23:44)
[2019-10-25] MEDS: LISINOPRIL 20 MG TABLET PO SCH (09:06)
[2019-10-25] MEDS: LEVOTHYROXINE SODIUM 150 MCG TABLET PO SCH (09:10)
[2019-10-25] MEDS: ALLOPURINOL 100 MG TABLET PO SCH (09:10)
[2019-10-25] MEDS: predniSONE 5 MG TABLET PO SCH (09:11)
[2019-10-25] MEDS: AMLODIPINE 10 MG TABLET PO SCH (09:11)
[2019-10-25] MEDS: OSELTAMIVIR PHOSPHATE 75 MG CAPSULE PO SCH ×2 (09:14→20:33)
--- NOTE | 2019-10-25 09:19 | NUR ---
PHARMACY CLINICAL NOTES ( VANCOMYCIN DOSING) S: To continue vanco dosing for this 79 YO male, for Sepsis, likely pneumonia. O: BUN/SCR 15/0.8, WBC 9.4, Temp 99.2, wt 68 kg ht 167 cm Trough on 10/24 at 1530: 15 A/P: Will continue same dose of Vanco as 1250 mg IVPB q16h for today. Will monitor renal function & adjust the dose if needed. Will follow
[2019-10-25 10:11] LABS: *WEST NILE CSF IGM Negative (Negative)
[2019-10-25 11:30] VITALS: BP 132/76
[2019-10-25] MEDS: hydrALAZINE HCL 20 MG/1 ML VIAL IV PRN (12:14)
[2019-10-25] MEDS ORDERED: POTASSIUM CHLORIDE 20 MEQ POWDER PACKET PO ONE (13:15)
[2019-10-25] MEDS ORDERED: FUROSEMIDE 20 MG/2 ML VIAL IV ONE (13:45)
[2019-10-25] MEDS: DILTIAZEM HCL CD 120 MG CAP.SR.24H PO SCH (15:41)
[2019-10-25] MEDS: hydrALAZINE HCL 50 MG TABLET PO SCH ×2 (15:42→22:15)
[2019-10-25 16:00] VITALS: BP 153/72
[2019-10-25] MEDS ORDERED: HOME MED MISCELLANEOUS XX SCH (17:00)
[2019-10-25] MEDS: MERCAPTOPURINE 50 MG PO SCH (18:29)
--- NOTE | 2019-10-25 18:42 | NUR ---
Patient calm and comfortable through out shift with no signs of distress; patient dressing changed; patient at [facility] .
--- NOTE | 2019-10-25 20:00 | NUR ---
Received patient laying in bed. No acute distress noted. Denies pain or SOB. A/O 3 with episodes of forgetfulness. TELE ST at 109. On O2 2L NC. Noted newly placed dressing on bilateral upper extremities. Bilateral lower extremities bruises.Safety initiated. Call light within reach will closely monitor.
[2019-10-25 20:05] VITALS: BP 144/60
--- NOTE | 2019-10-25 20:30 | NUR ---
Patient temperature elevated 100.1. Tylenol given, cooling measures initiated. Patient remains A/O x 3 with episodes of forgetfulness. TELE ST at 125. Denies pain. Will continue to monitor
[2019-10-25] MEDS: CEFTRIAXONE 1 G in IV DEXTROSE 5% 50 ML IV SCH (20:33)
[2019-10-25] MEDS: ENOXAPARIN SODIUM 40 MG/0.4 ML DISP.SYRIN SQ SCH (20:35)
[2019-10-26] VITALS: BP 139/60
[2019-10-26 04:00] VITALS: BP 155/71
--- NOTE | 2019-10-26 05:20 | NUR ---
Patient slept intermittently t/o shift. No acute distress noted. Denies pain or SOB. TELE ST at 112. Patient remains A/O x 3. Wound care. Vital signs stable. Burns draining clear and yellow urine. Medications given as ordered. Med compliant. Safety and comfort measures maintained t/o shift. All needs met.
[2019-10-26] MEDS: ACETAMINOPHEN 325 MG TABLET PO PRN ×2 (05:54→11:02)
[2019-10-26] MEDS: hydrALAZINE HCL 50 MG TABLET PO SCH ×3 (05:54→21:16)
[2019-10-26] MEDS: OSELTAMIVIR PHOSPHATE 75 MG CAPSULE PO SCH ×2 (09:53→20:06)
[2019-10-26] MEDS: MERCAPTOPURINE 50 MG PO SCH (09:53)
[2019-10-26] MEDS: AMLODIPINE 10 MG TABLET PO SCH (09:54)
[2019-10-26] MEDS: DILTIAZEM HCL CD 120 MG CAP.SR.24H PO SCH (09:54)
[2019-10-26] MEDS: LISINOPRIL 20 MG TABLET PO SCH (09:54)
[2019-10-26] MEDS: LEVOTHYROXINE SODIUM 150 MCG TABLET PO SCH (09:54)
[2019-10-26] MEDS: ASPIRIN EC 81 MG TABLET.DR PO SCH (09:54)
[2019-10-26] MEDS: ALLOPURINOL 100 MG TABLET PO SCH (09:54)
[2019-10-26] MEDS ORDERED: POTASSIUM CHLORIDE 20 MEQ TAB.PRT.SR PO ONE (10:30)
[2019-10-26 11:25] VITALS: BP 142/60
[2019-10-26] MEDS ORDERED: DILTIAZEM HCL CD 120 MG CAP.SR.24H PO ONE (12:00)
[2019-10-26] MEDS ORDERED: TEMAZEPAM 7.5 MG CAPSULE PO PRN (12:15)
--- NOTE | 2019-10-26 14:44 | NUR ---
PHARMACY CLINICAL NOTES ( VANCOMYCIN DOSING) S: To continue vanco dosing for this 79 YO male, for Sepsis, likely pneumonia. O: BUN/SCR 15/0.8 (10/25), WBC 9.4 (10/25), Temp 99.3, wt 68 kg ht 167 cm Trough on 10/24 at 1530: 15 A/P: Will continue same dose of Vanco as 1250 mg IVPB q16h for today. Will monitor renal function & adjust the dose if needed. Will follow
[2019-10-26 15:20] VITALS: BP 96/54
[2019-10-26] MEDS: VANCOMYCIN IV 1,250 MG in IV DEXTROSE 5% 250 ML IV SCH (16:40)
--- NOTE | 2019-10-26 18:21 | NUR ---
Patient AAOx3. IV on ANSLEY and L hand intact and patent. Low grade fever of 99.5; PRN Tylenol administered x1. Wound care done. No s/s of acute distress. No SOB noted; receiving 2L o2 via NC. Sinus tach on monitor with HR of 109. All needs attended at all times. Call light wthin reach. Will endorse care accordingly.
--- NOTE | 2019-10-26 19:30 | NUR ---
RECEIVED PT AWAKE, ALERT AND ORIENTEDX4. PT N NO ACUTE DISTRESS. IV INTACT. PT ON 2L NASAL CANNULA. SAFETY AND COMFORT PROVIDED. WILL CONTINUE TO MONITOR.
[2019-10-26 20:03] VITALS: BP 113/62
[2019-10-26] MEDS: CEFTRIAXONE 1 G in IV DEXTROSE 5% 50 ML IV SCH (20:06)
[2019-10-26] MEDS: ENOXAPARIN SODIUM 40 MG/0.4 ML DISP.SYRIN SQ SCH (20:09)
--- NOTE | 2019-10-26 21:30 | NUR ---
PT PRIMARY PHYSICIAN SAW HIM. PT IN NO ACUTE DISTRESS.
--- NOTE | 2019-10-26 22:13 | NUR ---
GIVEN TYLENOL AND COOLING MEASURES FOR 100 TEMP. RECENT TEMPERATURE IS 98.3. PT AFEBRILE.
[2019-10-27 00:34] VITALS: BP 114/66
[2019-10-27 04:58] VITALS: BP 113/71
[2019-10-27] MEDS: hydrALAZINE HCL 50 MG TABLET PO SCH (05:36)
--- NOTE | 2019-10-27 06:04 | NUR ---
PT SLEPT INTERMITTENTLY. PT IN NO ACUTE DISTRESS. IV INTACT. CASTILLO INTACT. DRESSING CHANGED. PRESCRIBED MEDICATION GIVEN AND PT TOLERATED IT WELL. PT AFEBRILE. SAFETY AND COMFORT PROVIDED. WILL ENDORSE TO INCOMING NURSE FOR CONTINUITY OF CARE.
[2019-10-27 06:59] LABS: BASOPHILS # (AUTO) 0.1 K/uL (0.0-8.0); BASOPHILS % (AUTO) 0.8 % (0.0-2.0); EOSINOPHILS # (AUTO) 0.1 K/uL (0.0-0.7); EOSINOPHILS % (AUTO) 1.1 % (0.0-7.0); HEMATOCRIT 28.8 % (36.7-47.1); HEMOGLOBIN 9.9 g/dL (12.5-16.3); LYMPHOCYTES # (AUTO) 0.1 K/uL (20.0-40.0); LYMPHOCYTES % (AUTO) 1.6 % (20.5-51.5); MEAN CORPUSCULAR HEMOGLOBIN 37.6 uug (23.8-33.4); MEAN CORPUSCULAR HGB CONC 34 g/dL (32.5-36.3); MEAN CORPUSCULAR VOLUME 109.6 fL (73.0-96.2); MONOCYTES # (AUTO) 1.1 K/uL (2.0-10.0); MONOCYTES % (AUTO) 14.2 % (0.0-11.0); NEUTROPHILS # (AUTO) 6.6 K/uL (1.8-8.9); NEUTROPHILS % (AUTO) 82.3 % (38.5-71.5); PLATELET COUNT (AUTO) 383 K/uL (152-348); RED BLOOD CELL COUNT(AUTO) 2.63 MIL/uL (4.06-5.63)
[2019-10-27 07:10] LABS: CREATININE 0.8 mg/dL (0.6-1.3); MAGNESIUM 1.9 mg/dL (1.8-2.4); PHOSPHOROUS 3.3 mg/dL (2.5-4.9); POTASSIUM 3.9 mmol/L (3.5-5.1)
--- NOTE | 2019-10-27 07:40 | NUR ---
Received patient in Bed, awake and verbally responsive. No signs of distress noted. No SOB. saturating 97% 2LPM. No Complain of Pain or discomfort. Patient will have MRI of Brain w/ w/o Contrast, will be picker tender helper at 1030AM, Kept clean and comfortable. Will continue to monitor.
[2019-10-27] MEDS: VANCOMYCIN IV 1,250 MG in IV DEXTROSE 5% 250 ML IV SCH (08:09)
[2019-10-27] MEDS: ASPIRIN EC 81 MG TABLET.DR PO SCH (08:54)
[2019-10-27] MEDS: OSELTAMIVIR PHOSPHATE 75 MG CAPSULE PO SCH (08:54)
[2019-10-27] MEDS: LEVOTHYROXINE SODIUM 150 MCG TABLET PO SCH (08:55)
[2019-10-27] MEDS: AMLODIPINE 10 MG TABLET PO SCH (08:55)
[2019-10-27] MEDS: ALLOPURINOL 100 MG TABLET PO SCH (08:55)
[2019-10-27] MEDS: MERCAPTOPURINE 50 MG PO SCH (09:00)
[2019-10-27] MEDS ORDERED: DILTIAZEM HCL CD 120 MG CAP.SR.24H PO SCH (09:00)
--- NOTE | 2019-10-27 09:02 | NUR ---
PHARMACY CLINICAL NOTES ( VANCOMYCIN DOSING) S: To continue vanco dosing for this 79 YO male, for Sepsis, likely pneumonia. O: BUN/SCR 19/0.8 , WBC 8, Temp 98.4 wt 68 kg ht 167 cm Trough on 10/24 at 1530: 15 A/P: Will continue same dose of Vanco as 1250 mg IVPB q16h for today. Will monitor renal function & adjust the dose if needed. Will follow
[2019-10-27] MEDS: LISINOPRIL 20 MG TABLET PO SCH (09:03)
[2019-10-27] MEDS ORDERED: GADOTERIDOL 279.3 MG/ML, 15 ML VIAL ONE (10:57)
--- NOTE | 2019-10-27 11:00 | NUR ---
Patient was Picked up by 2 EMT in stable condition for MRI w/ w/o contrast at [facility].
[2019-10-27 11:04] VITALS: BP 161/69
--- NOTE | 2019-10-27 12:01 | NUR ---
Patient came back from [facility] in stable condition.
[2019-10-27] MEDS ORDERED: FUROSEMIDE 20 MG/2 ML VIAL IV ONE (12:45)
[2019-10-27 15:02] VITALS: BP 105/50
--- NOTE | 2019-10-27 18:14 | NUR ---
Patient with Order to be discharge to ARU today, Patient made aware, Gave Report to Edgar ORELLANA from ARU. Discharge Instructions given and verbalized Understanding. 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 ANSLEY midline and Left hand Peripheral line will not be removed, d/t IV ATB. All belongings was sent and signed by patient. Patient was discharge to ARU via Bed in stable condition.
== END 2019-10-27 18:30 | DRG 871 ==
LOC: ER 13:58 → CCU 17:36 → TELE3 10-21 22:30
PROC: 009U3ZX Drainage of Spinal Canal, Percutaneous Approach, Diagnostic (ICD-10-PCS; principal; 2019-10-20)
DX: A41.9 Sepsis, unspecified organism (principal); G93.41 Metabolic encephalopathy; I21.A1 Myocardial infarction type 2; J18.9 Pneumonia, unspecified organism; J96.01 Acute respiratory failure with hypoxia; I50.31 Acute diastolic (congestive) heart failure; M62.82 Rhabdomyolysis; G81.91 Hemiplegia, unspecified affecting right dominant side; K51.90 Ulcerative colitis, unspecified, without complications; D68.59 Other primary thrombophilia; E87.2 Acidosis; L03.114 Cellulitis of left upper limb; L03.113 Cellulitis of right upper limb; N17.9 Acute kidney failure, unspecified; G91.2 (Idiopathic) normal pressure hydrocephalus; R29.810 Facial weakness; R40.2242 Coma scale, best verbal response, confused conversation, at arrival to emergency department; R40.2362 Coma scale, best motor response, obeys commands, at arrival to emergency department; R40.2142 Coma scale, eyes open, spontaneous, at arrival to emergency department; R29.704 NIHSS score 4; Z85.850 Personal history of malignant neoplasm of thyroid; E89.0 Postprocedural hypothyroidism; Z79.890 Hormone replacement therapy; Z79.52 Long term (current) use of systemic steroids; Z85.118 Personal history of other malignant neoplasm of bronchus and lung; N28.1 Cyst of kidney, acquired; E78.5 Hyperlipidemia, unspecified; Z74.09 Other reduced mobility; I11.0 Hypertensive heart disease with heart failure; K40.20 Bilateral inguinal hernia, without obstruction or gangrene, not specified as recurrent; K76.0 Fatty (change of) liver, not elsewhere classified; M19.90 Unspecified osteoarthritis, unspecified site; M25.78 Osteophyte, vertebrae; M48.02 Spinal stenosis, cervical region; M85.80 Other specified disorders of bone density and structure, unspecified site; M46.02 Spinal enthesopathy, cervical region; I67.2 Cerebral atherosclerosis; F03.90 Unspecified dementia, unspecified severity, without behavioral disturbance, psychotic disturbance, mood disturbance, and anxiety; L98.8 Other specified disorders of the skin and subcutaneous tissue; T38.0X5A Adverse effect of glucocorticoids and synthetic analogues, initial encounter; Z91.81 History of falling; Z86.73 Personal history of transient ischemic attack (TIA), and cerebral infarction without residual deficits
CPT/HCPCS: 36415; 36600; 70030-TC; 70450; 70553; 71045; 71275; 72125; 73030; 73590; 80307; 83605; 83735; 83921; 84100; 84157; 84443; 84480; 84481; 85025; 85651; 85730; 87040; 87086; 87400; 89051; 93005; 93307; A4217; A4663; A9579; G0378; J0360; J0696; J1650; J1720; J1940; J2060; J2185; J2543; J3370; J3475; J3490; J7030; J7050; J7060; J7512; J8499; Q9967

== ENCOUNTER 2019-10-27 17:41 | Inpatient (IN) | payer MEDICARE ==
[~2019-10-27] VITALS: Ht 167.6 cm; Wt 68.0 kg
[~2019-10-27 17:41] MED LIST: ALLO100T PO; AMLO10TA7 PO; ASPI-618 PO; ATOR40TA PO; BISO1TAB4 PO; CAPT25TA3 PO; CEFT1FRO2 IV; CLON0.1T PO; CLON1TAB12 PO; DILT120C87 PO; ENOX40DI SQ; LEVO150T PO; LISI-603 PO; MERC50TA PO; MESA1.2T PO; MESA10002 RC; OMEP20TA5 PO; PRED2.5T PO; RXVAN XX; TEMA7.5C PO
[2019-10-27 18:31] VITALS: BP 121/62
--- NOTE | 2019-10-27 18:38 | NUR ---
PATIENT IS ALERT, ORIENTED X4, VERBALLY RESPONSIVE, NO SOB, RESP EVEN NONLABORED,SKIN WARM AND DRY TO TOUCH, ON 2 LITER O2 VIA NASAL CANULA, SATURATING AT 94%, MULTIPLE SKIN TEARS, NO DISTRESS NOTED AT THIS TIME, ADMITTED FROM [facility] FLOOR.
[2019-10-27] MEDS ORDERED: TEMAZEPAM 7.5 MG CAPSULE PO PRN (18:45)
--- NOTE | 2019-10-27 19:30 | NUR ---
Admission report received from Am nurse. Routine admission care done. Plan of care initiated.
--- NOTE | 2019-10-27 19:34 | NUR ---
PATIENT NOTED WITH MULTIPLE DISCOLORATION TO BOTH UPPER AND LOWER EXTREMITIES, VERY THIN SKIN, NOTED WITH PITTING EDEMA TO BOTH LOWER AND UPPER EXTREMITIES # PITTING EDEMA. Addendum: 10/27/19 at 1936 by MARKUS PETERSEN RN, RN MULTIPLE OPEN AREAS TO BOTH LOWER AND UPPER EXTREMITIES
[2019-10-27 20:56] VITALS: BP 129/57
[2019-10-27] MEDS ORDERED: CEFTRIAXONE 1 G in IV DEXTROSE 5% 50 ML IV SCH (21:00)
[2019-10-27] MEDS: ATORVASTATIN 40 MG TABLET PO SCH (21:05)
[2019-10-27] MEDS: ENOXAPARIN SODIUM 40 MG/0.4 ML DISP.SYRIN SQ SCH (21:08)
[2019-10-27 22:18] VITALS: BP 129/57
[2019-10-28] MEDS ORDERED: VANCOMYCIN IV 1,000 MG in IV DEXTROSE 5% 250 ML IV SCH ×2
[2019-10-28 05:39] VITALS: BP 150/60
--- NOTE | 2019-10-28 05:51 | NUR ---
Shift End Report: Vs stable. Slept well. No complaint presented all night. All needs attended and met. No significant event reported. Continue current rehab plan of care.
[2019-10-28 08:26] LABS: FERRITIN 1504 ng/mL (26-388); LACTATE DEHYDROGENASE 346 U/L (85-227)
[2019-10-28] MEDS: AMLODIPINE 10 MG TABLET PO SCH (08:31)
[2019-10-28] MEDS: ASPIRIN EC 81 MG TABLET.DR PO SCH (08:31)
[2019-10-28 08:32] VITALS: BP 148/69
[2019-10-28] MEDS: DILTIAZEM HCL CD 240 MG CAP.SR.24H PO SCH (08:32)
[2019-10-28] MEDS: ALLOPURINOL 100 MG TABLET PO SCH (08:32)
[2019-10-28] MEDS: LISINOPRIL 20 MG TABLET PO SCH (08:33)
[2019-10-28] MEDS: MERCAPTOPURINE 50 MG PO SCH (08:33)
[2019-10-28 08:51] LABS: IRON, SERUM 29 ug/dL (50-175)
[2019-10-28] MEDS ORDERED: DILTIAZEM HCL CD 120 MG CAP.SR.24H PO SCH (09:00)
[2019-10-28] MEDS ORDERED: MERCAPTOPURINE PO SCH (09:00)
[2019-10-28] MEDS ORDERED: LEVOTHYROXINE SODIUM 150 MCG TABLET PO SCH (09:00)
[2019-10-28 10:24] LABS: *RHEUMATOID FACTOR SCREEN NEGATIVE (NEGATIVE)
--- NOTE | 2019-10-28 10:52 | NUR ---
PHARMACY CLINICAL NOTES ( VANCOMYCIN DOSING) S: To continue vanco dosing for this 79 YO male, for Sepsis, likely pneumonia (transferred to Rehab on 10/27). O: BUN/SCR 19/0.8 (10/27) , WBC 8 (10/27), Temp 98.1 wt 68 kg ht 167 cm Trough on 10/24 at 1530: 15 A/P: Will continue same dose of Vanco as 1250 mg IVPB q16h for today. Next dose due today at 1400. Will monitor renal function & adjust the dose if needed. Will follow
[2019-10-28 12:48] LABS: BASOPHILS % (AUTO) 0.1 % (0.0-2.0); EOSINOPHILS # (AUTO) 0.1 K/uL (0.0-0.7); EOSINOPHILS % (AUTO) 1.3 % (0.0-7.0); HEMATOCRIT 28.7 % (36.7-47.1); HEMOGLOBIN 9.6 g/dL (12.5-16.3); LYMPHOCYTES # (AUTO) 0.1 K/uL (20.0-40.0); LYMPHOCYTES % (AUTO) 1.4 % (20.5-51.5); MEAN CORPUSCULAR HEMOGLOBIN 36.7 uug (23.8-33.4); MEAN CORPUSCULAR HGB CONC 34 g/dL (32.5-36.3); MEAN CORPUSCULAR VOLUME 109.5 fL (73.0-96.2); MONOCYTES % (AUTO) 11.1 % (0.0-11.0); NEUTROPHILS # (AUTO) 7.9 K/uL (1.8-8.9); NEUTROPHILS % (AUTO) 86.1 % (38.5-71.5); PLATELET COUNT (AUTO) 449 K/uL (152-348); RED BLOOD CELL COUNT(AUTO) 2.62 MIL/uL (4.06-5.63); WHITE BLOOD COUNT (AUTO) 9.2 K/uL (3.6-10.2)
[2019-10-28 13:01] LABS: BILIRUBIN,TOTAL 0.5 mg/dL (0.2-1.0); POTASSIUM 3.9 mmol/L (3.5-5.1); TOTAL PROTEIN, SERUM 5.4 g/dL (6.4-8.2)
[2019-10-28] MEDS ORDERED: VANCOMYCIN IV 1,250 MG in IV DEXTROSE 5% 250 ML IV SCH (14:00)
[2019-10-28 14:03] LABS: BAND % (MANUAL) 4 % (0-10); EOSINOPHILS % (MANUAL) 2 % (0-8); LYMPHOCYTES % (MANUAL) 4 % (20-40); MONOCYTES % (MANUAL) 10 % (2-10); NEUTROPHILS % (MANUAL) 80 % (42-75)
--- NOTE | 2019-10-28 16:04 | NUR ---
PATIENT IS ALERT, ORIENTED X4, NO SOB, ON O2 2 LITER VIA NASAL CANULA SATURATING AT 93%, NO DISTRESS NOTED, MULTIPLE WOUNDS ARE BEING TREATED ORDERED, NO SIGNS AND SYMPTOMS OF INFECTION NOTED AT WOUND SITES, CASTILLO DCD, CONTINE ON ATB IV, TOLERATED WELL.
--- NOTE | 2019-10-28 16:10 | NUR ---
INTERDISCIPLINARY TEAM CONFERENCE
[2019-10-28 16:11] VITALS: BP 134/71
--- NOTE | 2019-10-28 18:04 | NUR ---
DEMONSTRATED PATIENT HOW TO USE URINAL, PATIENT WAS ABLE TO DEMONSTRATE BACK SUCCESSFULLY. PATIENT VOIDED ONCE, BLADDER SCAN 589ML, NO DISTENDED BLADDER NOTED, DNP CHYRYL MADE AWARE WITH ORDER TO MONITOR, IF BLADDER SCAN IS MORE THAN 1000ML STARIGHT CATH OR IF PATIENT IS UNCOMFORTABLE, NOTIFY ORAL AND MAXILLOFACIAL SURGEON OR MD. PATIENT STATED THAT THIS TIME, HE FEELS FINE, CONTINUE TO MONITOR, AND ENDORSE TO NEXT SHIFT ACCORDINGLY
--- NOTE | 2019-10-28 18:19 | NUR ---
PATIENT REPRESENTED WITH MULTIPLE WOUNDS, SKIN TEARS, TX IN PROGRESS ORDERED, RIGHT KNEE LATERAL WOUND BED IS YELLOW, PERIWOUND IS RED, HOWEVER NO SIGNS AND SYMPTOMS OF INFECTION NOTED, NO ODOR NOTED, WOUND CONSULT IS IN PLACE. CONTINUE TO MONITOR
--- NOTE | 2019-10-28 19:45 | NUR ---
Awake , in bed during initial rounds. Dr. Lama at bedside, assessing the patient. Not in distress, no s/s of pain/discomforts at this time. HOB elevated with O2 2L via NC saturating 98% at this time. Safety measure and fall precaution maintained. Continue care as planned.
[2019-10-28] MEDS: ATORVASTATIN 40 MG TABLET PO SCH (20:09)
[2019-10-28] MEDS: ENOXAPARIN SODIUM 40 MG/0.4 ML DISP.SYRIN SQ SCH (20:09)
[2019-10-28 20:36] VITALS: BP 139/64
--- NOTE | 2019-10-28 20:55 | NUR ---
Dr Olguin at the bedside, conversing with the patient. No new order given at this time.
[2019-10-29 05:01] VITALS: BP 130/69
--- NOTE | 2019-10-29 05:32 | NUR ---
Shift End Report: Vs stable. Slept good. Incontinent of urine. Unable to use urinal provided at bedside. Slept good. Good skin/ash care provided after each incontinence. All needs attended and met. No significant event reported all night. Continue current rehab plan of care .
[2019-10-29] MEDS: LEVOTHYROXINE SODIUM 100 MCG TABLET PO SCH (06:36)
--- NOTE | 2019-10-29 06:52 | NUR ---
Bladder scan performed, obtained 68ml. Patient voided per urinal earlier 220 ml clear yello urine. Will endorse.
[2019-10-29] MEDS ORDERED: LEVOTHYROXINE SODIUM 150 MCG TABLET PO SCH (07:00)
[2019-10-29 07:16] LABS: MAGNESIUM 1.8 mg/dL (1.8-2.4); PHOSPHOROUS 3.2 mg/dL (2.5-4.9); POTASSIUM 3.8 mmol/L (3.5-5.1)
[2019-10-29 07:17] LABS: BASOPHILS # (AUTO) 0.1 K/uL (0.0-8.0); BASOPHILS % (AUTO) 0.6 % (0.0-2.0); EOSINOPHILS # (AUTO) 0.2 K/uL (0.0-0.7); EOSINOPHILS % (AUTO) 2.3 % (0.0-7.0); HEMATOCRIT 29.7 % (36.7-47.1); HEMOGLOBIN 10.1 g/dL (12.5-16.3); LYMPHOCYTES # (AUTO) 0.1 K/uL (20.0-40.0); LYMPHOCYTES % (AUTO) 1.2 % (20.5-51.5); MEAN CORPUSCULAR HEMOGLOBIN 37.1 uug (23.8-33.4); MEAN CORPUSCULAR HGB CONC 34 g/dL (32.5-36.3); MEAN CORPUSCULAR VOLUME 108.9 fL (73.0-96.2); MONOCYTES # (AUTO) 0.7 K/uL (2.0-10.0); MONOCYTES % (AUTO) 7.3 % (0.0-11.0); NEUTROPHILS # (AUTO) 8.7 K/uL (1.8-8.9); NEUTROPHILS % (AUTO) 88.6 % (38.5-71.5); PLATELET COUNT (AUTO) 495 K/uL (152-348); RED BLOOD CELL COUNT(AUTO) 2.73 MIL/uL (4.06-5.63); WHITE BLOOD COUNT (AUTO) 9.8 K/uL (3.6-10.2)
--- NOTE | 2019-10-29 07:39 | NUR ---
Patient noted resting in bed with eyes closed, no complaints of pain at this time, no signs of distress noted, call light in reach, bed locked and in lowest position, all needs met at this time
[2019-10-29 08:00] VITALS: BP 116/65
[2019-10-29] MEDS: ASPIRIN EC 81 MG TABLET.DR PO SCH (09:32)
[2019-10-29] MEDS: MERCAPTOPURINE 50 MG PO SCH (09:32)
[2019-10-29] MEDS: DILTIAZEM HCL CD 240 MG CAP.SR.24H PO SCH (09:32)
[2019-10-29] MEDS: AMLODIPINE 10 MG TABLET PO SCH (09:33)
[2019-10-29] MEDS: LISINOPRIL 20 MG TABLET PO SCH (09:33)
[2019-10-29] MEDS: ALLOPURINOL 100 MG TABLET PO SCH (09:34)
[2019-10-29 13:06] LABS: *ANTI-SCLERODERMA-70 AB <0.2 AI (0.0-0.9); *IMMUNOGLOBULIN G, SERUM 435 mg/dL (700-1600); *SJOGREN'S ANTI-SS-A <0.2 AI (0.0-0.9); *SJOGREN'S ANTI-SS-B <0.2 AI (0.0-0.9); *SMITH ANTIBODIES <0.2 AI (0.0-0.9); ANTI-DNA(DS) AB, QN <1 IU/mL (0-9); IMMUNOGLOBULIN A, SERUM 122 mg/dL (61-437); IMMUNOGLOBULIN M, SERUM 48 mg/dL (15-143)
[2019-10-29 16:02] VITALS: BP 115/52
--- NOTE | 2019-10-29 19:48 | NUR ---
Awake during initial rounds. Denies any pain/discomforts at this time. Safety measure and fall precaution maintained. Continue care as planned.
[2019-10-29 19:56] VITALS: BP 124/67
[2019-10-29] MEDS: ATORVASTATIN 40 MG TABLET PO SCH (20:16)
[2019-10-29] MEDS: ENOXAPARIN SODIUM 40 MG/0.4 ML DISP.SYRIN SQ SCH (20:17)
[2019-10-30 04:55] VITALS: BP 123/73
[2019-10-30] MEDS: LEVOTHYROXINE SODIUM 100 MCG TABLET PO SCH (06:07)
--- NOTE | 2019-10-30 06:58 | NUR ---
Shift End Report: Slept good. VS stable. No complaint presented . All needs attended and met. No significant event reported all night. Continue current rehab of care.
--- NOTE | 2019-10-30 07:53 | NUR ---
Patient noted noted resting in bed with eyes closed, no facial cues of pain of pain, no signs of distress noted, call light in reach, bed locked and in lowest position, all needs met
[2019-10-30 08:00] VITALS: BP 131/64
[2019-10-30] MEDS: ASPIRIN EC 81 MG TABLET.DR PO SCH (09:11)
[2019-10-30] MEDS: ALLOPURINOL 100 MG TABLET PO SCH (09:12)
[2019-10-30] MEDS: LISINOPRIL 20 MG TABLET PO SCH (09:14)
[2019-10-30] MEDS: AMLODIPINE 10 MG TABLET PO SCH (09:14)
[2019-10-30] MEDS: DILTIAZEM HCL CD 240 MG CAP.SR.24H PO SCH (09:15)
[2019-10-30] MEDS: MERCAPTOPURINE 50 MG PO SCH (09:16)
[2019-10-30] MEDS ORDERED: FUROSEMIDE 20 MG TABLET PO ONE (12:15)
--- NOTE | 2019-10-30 15:31 | NUR ---
INDIVIDUALIZED PLAN OF CARE
[2019-10-30 19:24] VITALS: BP 119/59
--- NOTE | 2019-10-30 19:40 | NUR ---
Awake during initial rounds. Denies any pain/discomforts,HOB elevated with continuous O2 at 2L via NC, saturating 100% at this time, tapered down to 1L for now and monitor. Offered urinal for urination, voided well. Safety measure and fall precaution maintained. Continue care as planned.
[2019-10-30] MEDS: ATORVASTATIN 40 MG TABLET PO SCH (20:20)
[2019-10-30] MEDS: ENOXAPARIN SODIUM 40 MG/0.4 ML DISP.SYRIN SQ SCH (20:21)
[2019-10-31 05:02] VITALS: BP 123/100
[2019-10-31] MEDS: LEVOTHYROXINE SODIUM 100 MCG TABLET PO SCH (05:57)
--- NOTE | 2019-10-31 06:50 | NUR ---
Shift End Report: VS stable. Slept good. No complaint presented. All needs attended and met. Continue current rehab plan of care.
--- NOTE | 2019-10-31 07:32 | NUR ---
Patient noted sitting up in wheelchair at this time, no complaints of pain , no signs of distress noted, call light in reach, bed locked and in lowest position, all needs met
[2019-10-31 08:00] VITALS: BP 120/67
[2019-10-31] MEDS: DILTIAZEM HCL CD 240 MG CAP.SR.24H PO SCH (09:00)
[2019-10-31] MEDS: LISINOPRIL 20 MG TABLET PO SCH (09:00)
[2019-10-31] MEDS: ASPIRIN EC 81 MG TABLET.DR PO SCH (09:05)
[2019-10-31] MEDS: ALLOPURINOL 100 MG TABLET PO SCH (09:05)
[2019-10-31] MEDS: MERCAPTOPURINE 50 MG PO SCH (09:17)
[2019-10-31 11:14] LABS: A/G RATIO 0.8 (0.7-1.7); ALPHA-1-GLOBULIN 0.4 g/dL (0.0-0.4); ALPHA-2-GLOBULIN 0.8 g/dL (0.4-1.0); BETA GLOBULIN 0.8 g/dL (0.7-1.3); GAMMA GLOBULIN 0.4 g/dL (0.4-1.8); GLOBULIN, TOTAL 2.5 g/dL (2.2-3.9); M-SPIKE Not Observed g/dL (Not Observed)
--- NOTE | 2019-10-31 12:50 | NUR ---
WOUND CARE CONSULT: PT PRESENTS WITH MULTIPLE BRUISES, SKIN DISCOLORATIONS, LEFT ARM SKIN TEAR, DRY SCABS AND RT LATERAL LOWER LEG WOUND, ALL PRESENT ON ADMISSION. RECOMMEND DPM CONSULT/FOLLOW UP FOR RT LEG. RECOMMENDATIONS MADE FOR SKIN PROTECTION AND WOUND CARE. DISCUSSED WITH NURSING STAFF. WILL SEE PRN. RAMIREZ IN AGREEMENT WITH PLAN OF CARE. CURRENT FELIPE SCORE IS 16. DR OVALLES NOTIFIED OF DPM CONSULT REQUEST. Addendum: 10/31/19 at 1252 by KENRICK HARDIN RN Amended: Links added.
[2019-10-31 16:56] VITALS: BP 111/93
--- NOTE | 2019-10-31 19:35 | NUR ---
Awake during initial rounds. Denies any pain/discomforts at this time. Good ash care/skin care rendered after bladder incontinence. Rashes on both groin area still visible, applied Z guard as ordered and needed. Encouraged use of urinal if able. Continue care as planned.
[2019-10-31 20:00] VITALS: BP 129/62
[2019-10-31] MEDS: ATORVASTATIN 40 MG TABLET PO SCH (20:36)
[2019-10-31] MEDS: ENOXAPARIN SODIUM 40 MG/0.4 ML DISP.SYRIN SQ SCH (20:37)
[2019-11-01 04:00] VITALS: BP 138/71
--- NOTE | 2019-11-01 06:08 | NUR ---
Shift End Report: VS stable. No complaint presented. All needs attended and met. No significant event reported all night. Slept good. Voided qs with no problem. Continue current rehab plan of care.
[2019-11-01] MEDS: LEVOTHYROXINE SODIUM 100 MCG TABLET PO SCH (06:19)
[2019-11-01 07:34] LABS: MAGNESIUM 1.9 mg/dL (1.8-2.4); PHOSPHOROUS 3.5 mg/dL (2.5-4.9); POTASSIUM 4.1 mmol/L (3.5-5.1)
[2019-11-01 07:39] LABS: EOSINOPHILS # (AUTO) 0.3 K/uL (0.0-0.7); LYMPHOCYTES # (AUTO) 0.1 K/uL (20.0-40.0); MONOCYTES # (AUTO) 0.1 K/uL (2.0-10.0)
[2019-11-01 08:12] LABS: BASOPHILS % (AUTO) 0.1 % (0.0-2.0); EOSINOPHILS % (AUTO) 4.5 % (0.0-7.0); HEMATOCRIT 26.7 % (36.7-47.1); HEMOGLOBIN 9.1 g/dL (12.5-16.3); MEAN CORPUSCULAR HEMOGLOBIN 37.1 uug (23.8-33.4); MEAN CORPUSCULAR HGB CONC 34 g/dL (32.5-36.3); MEAN CORPUSCULAR VOLUME 108.5 fL (73.0-96.2); MONOCYTES % (AUTO) 1.7 % (0.0-11.0); NEUTROPHILS # (AUTO) 6.1 K/uL (1.8-8.9); NEUTROPHILS % (AUTO) 91.7 % (38.5-71.5); PLATELET COUNT (AUTO) 549 K/uL (152-348)
[2019-11-01 08:14] LABS: RED BLOOD CELL COUNT(AUTO) 2.46 MIL/uL (4.06-5.63); WHITE BLOOD COUNT (AUTO) 6.7 K/uL (3.6-10.2)
[2019-11-01] MEDS ORDERED: AMLODIPINE 10 MG TABLET PO SCH (09:00)
[2019-11-01 09:17] VITALS: BP 146/71
[2019-11-01] MEDS: ASPIRIN EC 81 MG TABLET.DR PO SCH (09:28)
[2019-11-01] MEDS: AMLODIPINE 5 MG TABLET PO SCH (09:30)
[2019-11-01] MEDS: ALLOPURINOL 100 MG TABLET PO SCH (09:31)
[2019-11-01] MEDS: DILTIAZEM HCL CD 240 MG CAP.SR.24H PO SCH (09:31)
[2019-11-01] MEDS: LISINOPRIL 20 MG TABLET PO SCH (09:32)
[2019-11-01] MEDS: MERCAPTOPURINE 50 MG PO SCH (09:32)
[2019-11-01 16:06] VITALS: BP 139/72
--- NOTE | 2019-11-01 18:26 | NUR ---
PATIENT IS ALERT, ORIENTED X4, NO SOB, RESP EVEN NONLABORED,SKIN WARM AND DRY TO TOUCH, NO DISTRESS NOTED
--- NOTE | 2019-11-01 19:20 | NUR ---
PATIENT IS VOIDING GOOD AMOUNT OF CLEAR YELLOW URINE, IN URINAL,
--- NOTE | 2019-11-01 19:35 | NUR ---
Awake, in bed, not in distress. denies any pain/discomforts at this time. Safety measure and fall precaution maintained. Continue care as planned.
[2019-11-01 20:27] VITALS: BP 144/68
[2019-11-01] MEDS: ATORVASTATIN 40 MG TABLET PO SCH (20:38)
[2019-11-01] MEDS: ENOXAPARIN SODIUM 40 MG/0.4 ML DISP.SYRIN SQ SCH (20:39)
[2019-11-01] MEDS ORDERED: LIDOCAINE HCL 1% 20 ML VIAL IJ PRN (20:45)
[2019-11-02 04:00] VITALS: BP 132/73
[2019-11-02] MEDS: LEVOTHYROXINE SODIUM 100 MCG TABLET PO SCH (06:04)
--- NOTE | 2019-11-02 06:28 | NUR ---
Shift End report: Vs stable. No complaint presented. Voiding good. No bladder discomforts presented. Good skin/ash care rendered after each B/B incontinence. Refused to have pictures done on his wounds last night and wait till AM for the wound care. Will endorse. All needs attended and met. No significant event reported all night. Continue current rehab plan of care.
[2019-11-02 07:27] LABS: BASOPHILS % (AUTO) 0.3 % (0.0-2.0); EOSINOPHILS # (AUTO) 0.3 K/uL (0.0-0.7); EOSINOPHILS % (AUTO) 4.1 % (0.0-7.0); HEMATOCRIT 26.3 % (36.7-47.1); LYMPHOCYTES # (AUTO) 0.1 K/uL (20.0-40.0); LYMPHOCYTES % (AUTO) 1.5 % (20.5-51.5); MEAN CORPUSCULAR HGB CONC 34 g/dL (32.5-36.3); MEAN CORPUSCULAR VOLUME 107.8 fL (73.0-96.2); MONOCYTES # (AUTO) 0.1 K/uL (2.0-10.0); MONOCYTES % (AUTO) 1.1 % (0.0-11.0); NEUTROPHILS # (AUTO) 5.9 K/uL (1.8-8.9); PLATELET COUNT (AUTO) 528 K/uL (152-348); WHITE BLOOD COUNT (AUTO) 6.3 K/uL (3.6-10.2)
[2019-11-02 07:34] LABS: RED BLOOD CELL COUNT(AUTO) 2.44 MIL/uL (4.06-5.63)
--- NOTE | 2019-11-02 07:37 | NUR ---
PATIENT IS IN BED, NO SOB,R NJ EVEN NONLABORED, USING O2 1 LITER VIA NASAL CANULA, NO DISTRESS NOTED, ALERT, ORIENTED X3, VERBALLY RESPONSIVE
[2019-11-02 07:41] LABS: BILIRUBIN,TOTAL 0.6 mg/dL (0.2-1.0); CREATININE 0.9 mg/dL (0.6-1.3); POTASSIUM 3.7 mmol/L (3.5-5.1); TOTAL PROTEIN, SERUM 5.5 g/dL (6.4-8.2)
[2019-11-02 07:47] VITALS: BP 130/78
[2019-11-02] MEDS: ASPIRIN EC 81 MG TABLET.DR PO SCH (08:45)
[2019-11-02] MEDS: ALLOPURINOL 100 MG TABLET PO SCH (08:46)
[2019-11-02] MEDS: AMLODIPINE 5 MG TABLET PO SCH (08:46)
[2019-11-02] MEDS: DILTIAZEM HCL CD 240 MG CAP.SR.24H PO SCH (08:47)
[2019-11-02] MEDS: MERCAPTOPURINE 50 MG PO SCH (08:48)
[2019-11-02] MEDS: LISINOPRIL 20 MG TABLET PO SCH (08:48)
--- NOTE | 2019-11-02 12:49 | NUR ---
PATIENT REFUSES HIS SCD PUMPS STRONGLY, RISKS AND BENEFITS EXPLAINED, PATIENT IS AMBULATORY
--- NOTE | 2019-11-02 13:01 | NUR ---
PATIENT IS VOIDING GOOD AMOUNT OF URINE
[2019-11-02 15:13] VITALS: BP 120/62
[2019-11-02] MEDS ORDERED: HYDROCODONE/APAP 5-325MG TABLET PO ONE (18:30)
--- NOTE | 2019-11-02 18:54 | NUR ---
MD IS BEDSIDE IS PERFORMING BONE MARROW BIOPSY AND ASPIRATION PROCEDURE, TOLERATING WELL, CONTINUE TO MONITOR.
--- NOTE | 2019-11-02 19:07 | NUR ---
STATUS POST BONE MARROW BIOPSY, PATIENT IS ALERT, ORIENTED X4, VERBALLY RESPONSIVE, TOLERATED PROCEDURE WELL, CONTINUE TO MONITOR, VITALS STABLE, BP 133/73. PULSE 78, RESP 18, TEMP 98.0, PAIN 4/10 GENERALIZED PAIN. NO ACTIVE BLEEDING NOTED.
[2019-11-02 19:18] LABS: BASOPHILS % (AUTO) 0.6 % (0.0-2.0); EOSINOPHILS # (AUTO) 0.2 K/uL (0.0-0.7); EOSINOPHILS % (AUTO) 3.4 % (0.0-7.0); HEMATOCRIT 25.4 % (36.7-47.1); HEMOGLOBIN 8.7 g/dL (12.5-16.3); LYMPHOCYTES # (AUTO) 0.1 K/uL (20.0-40.0); LYMPHOCYTES % (AUTO) 1.4 % (20.5-51.5); MEAN CORPUSCULAR HEMOGLOBIN 36.8 uug (23.8-33.4); MEAN CORPUSCULAR HGB CONC 34 g/dL (32.5-36.3); MEAN CORPUSCULAR VOLUME 107.6 fL (73.0-96.2); MONOCYTES % (AUTO) 0.7 % (0.0-11.0); NEUTROPHILS # (AUTO) 5.9 K/uL (1.8-8.9); NEUTROPHILS % (AUTO) 93.9 % (38.5-71.5); PLATELET COUNT (AUTO) 495 K/uL (152-348); WHITE BLOOD COUNT (AUTO) 6.3 K/uL (3.6-10.2)
--- NOTE | 2019-11-02 19:19 | NUR ---
SHAD DCD STATUS POST BONE MARROW BIOPSY Addendum: 11/02/19 at 1920 by MARKUS PETERSEN RN RN ORDER OBTAINED FROM DR CARRI TRIPP
[2019-11-02 19:24] LABS: RED BLOOD CELL COUNT(AUTO) 2.36 MIL/uL (4.06-5.63)
--- NOTE | 2019-11-02 19:35 | NUR ---
Awake in bed, not in distress, continuous O2 at 1L/min via NC saturating 96% at this time. Denied any pain/discomforts at this time S/P Bone marrow biopsy and aspiration at bedside by Dr. Jasso, Qa Manager, tolerated well. No active bleeding noted on site. Safety measure and fall precaution maintained. Continue care as planned.
[2019-11-02] MEDS: ATORVASTATIN 40 MG TABLET PO SCH (20:29)
[2019-11-02 21:54] VITALS: BP 105/60
[2019-11-03] MEDS: ACETAMINOPHEN 325 MG TABLET PO PRN ×2 (01:10→08:24)
--- NOTE | 2019-11-03 05:46 | NUR ---
Shift End Report: VS stable. Slept good. Complaint of itchiness on his back, applied lotion with good relief. Presented complaint of pain as well on his right hip that radiated to his back, Tylenol given as ordered and needed with relief. All needs attended and met. No significant event reported. Continue current rehab plan of care.
[2019-11-03] MEDS: LEVOTHYROXINE SODIUM 100 MCG TABLET PO SCH (06:05)
[2019-11-03 07:50] VITALS: BP 126/69
[2019-11-03] MEDS: ASPIRIN EC 81 MG TABLET.DR PO SCH (08:24)
[2019-11-03] MEDS: AMLODIPINE 5 MG TABLET PO SCH (08:24)
[2019-11-03] MEDS: ALLOPURINOL 100 MG TABLET PO SCH (08:25)
[2019-11-03] MEDS: DILTIAZEM HCL CD 240 MG CAP.SR.24H PO SCH (08:25)
[2019-11-03] MEDS: MERCAPTOPURINE 50 MG PO SCH (08:26)
[2019-11-03] MEDS: LISINOPRIL 20 MG TABLET PO SCH (08:26)
--- NOTE | 2019-11-03 09:39 | NUR ---
Patient received in bed alert and oriented times four. Patient is stable, no s/s of distress, no SOB. Patient received morning medication with no problem. Patient is on 1L oxygen with O2 saturation at 95%. Patient complaint of sharp pain 8/10 on right leg radiating to the groin. Gave patient Tylenol 650 mg. Safety and items such as call light are within reach. ANSLEY IV midline single lumen is intact and patent. Will continue to monitor patient.
--- NOTE | 2019-11-03 13:44 | NUR ---
Patient is complaining of right upper leg pain 02/07. Pt states that the pain is dull and radiates to his groin/ lower back. Patient states that the pain is only there when he is moving his leg. Patient is concerned that the pain is related to the bone franks biopsy done yesterday. Called Dr. Chung to notify her of patient concern. Waiting for call back.
--- NOTE | 2019-11-03 14:35 | NUR ---
Dr. Chung called back. No new order. Patient was made aware that pain is not related to bone franks biopsy.
[2019-11-03 14:42] VITALS: BP 113/49
--- NOTE | 2019-11-03 18:21 | NUR ---
END OF SHIFT: Patient was stable throughout shift. Patient received daily exercise with PT. Patient had complaint about right upper leg pain /, gave Tylenol and pt. states pain got better /. Notified Dr. Chung about pain and patients concern related to bone franks biopsy. Dr. Chung came in to speak with pt and told him that pain is not related to bone franks biopsy. Pt. is on 1L of Oxygen with nasal canula with O2 saturation of 96%. Woundcare was completed on patient and wounds are looking better and are healing. Medications administered on time. Patient safety and items need within reach through entire shift. Will endorse the next shift accordingly
[2019-11-03] MEDS: Z GUARD REMEDY PASTE 57 GM TUBE TOP PRN (18:36)
[2019-11-03] MEDS: ATORVASTATIN 40 MG TABLET PO SCH (20:19)
[2019-11-03 20:36] VITALS: BP 138/72
--- NOTE | 2019-11-03 20:47 | NUR ---
Received pt resting in bed and watching tv. AAO x4. Pt had visitor but sent them away because he does not want to entertain. On 1L O2 via NC, tolerating well. No acute distress noted. Denies pain/ discomfort. Due med given as ordered. Safety measures maintained. Call light and personal items within reach. Will continue to monitor.
[2019-11-03 22:00] VITALS: BP 138/78
[2019-11-04 05:15] VITALS: BP 137/68
[2019-11-04] MEDS: LEVOTHYROXINE SODIUM 100 MCG TABLET PO SCH (06:11)
[2019-11-04] MEDS: ACETAMINOPHEN 325 MG TABLET PO PRN ×2 (08:08→17:22)
[2019-11-04] MEDS: AMLODIPINE 5 MG TABLET PO SCH (08:08)
[2019-11-04] MEDS: ASPIRIN EC 81 MG TABLET.DR PO SCH (08:08)
[2019-11-04] MEDS: ALLOPURINOL 100 MG TABLET PO SCH (08:09)
[2019-11-04] MEDS: LISINOPRIL 20 MG TABLET PO SCH (08:09)
[2019-11-04] MEDS: DILTIAZEM HCL CD 240 MG CAP.SR.24H PO SCH (08:09)
[2019-11-04] MEDS: MERCAPTOPURINE 50 MG PO SCH (08:10)
[2019-11-04 08:23] VITALS: BP 134/77
--- NOTE | 2019-11-04 11:07 | NUR ---
INTERDISCIPLINARY TEAM CONFERENCE
--- NOTE | 2019-11-04 15:37 | NUR ---
MIDLINE DISCONTINUED, ORDER OBTAINED BY MD, NO DISTRESS NOTED, PATIENT IS ALERT, ORIENTED X4, NO SOB, RESP EVEN NONLABORED,SKIN WARM AND DRY TO TOUCH WOUND CARE PREFORMED,NO SIGNS AND SYMPTOMS OF INFECTION NOTED AT WOUND SITES, CONTINUE TO MONITOR.
--- NOTE | 2019-11-04 16:04 | NUR ---
WOUND CARE DONE, WOUNDS NOTED WITH DRY SCABS, HEALING WELL, EXCEPT RIGHT LATERAL KNEE. RIGHT LATERAL KNEE WOUND STILL NOTED WITH SLOUGH, NO DRAINAGE, NO ODOR NOTED. NO INCREASED ERYTHEMA NOTED AROUND PERIWOUND AREA. SKIN TEARS TO BOTH UPPER ARMS ARE HEALING WELL, LEFT UPPER ARM SKIN TEAR HAS SCABBED. BOTH LOWER LEGS SKIN TEARS ARE SCABBED. RIGHT HIP ABRASION RESOLVED. CONTINUE WITH TX ORDERED.
--- NOTE | 2019-11-04 16:07 | NUR ---
PATIENT NOTED WITH REDNESS TO PERINEAL AREA, LOTRIMIN ORDERED. CONTINUE TO KEEP DRY.
[2019-11-04 16:10] VITALS: BP 117/58
[2019-11-04] MEDS ORDERED: CLOTRIMAZOLE 1% CREAM 30 GM TUBE TOP SCH (17:00)
--- NOTE | 2019-11-04 17:57 | NUR ---
PATIENT VOIDED IN THE BATHROOM, VOIDED X4, NO DISTENDED BLADDER, PATIENT DENIED ANY DISCOMFORT
[2019-11-04 19:45] VITALS: BP 116/68
[2019-11-04] MEDS: ATORVASTATIN 40 MG TABLET PO SCH (20:15)
[2019-11-04] MEDS: CLOTRIMAZOLE 1% CREAM 30 GM TUBE TOP SCH (20:15)
--- NOTE | 2019-11-04 21:19 | NUR ---
Received pt resting in bed and watching tv. AAO x4. No acute distress noted, 95% on room air. Denies pain/ discomfort. Due med given as ordered. Pt requested for sleeping med as he was having difficulty sleeping the past few nights, PRN restoril given. Wound care done. Lotrimin applied on groin area. Safety measures maintained. Call light and personal items within reach. Will continue to monitor.
[2019-11-05 05:39] VITALS: BP 134/72
[2019-11-05] MEDS: LEVOTHYROXINE SODIUM 100 MCG TABLET PO SCH (06:16)
--- NOTE | 2019-11-05 07:45 | NUR ---
patient noted sitting up in bed watching tv, assisted with urinal at this time, no complaints of pain, no signs of distress noted, call light in reach, bed locked and in lowest position, all needs met at this time,
[2019-11-05 08:09] VITALS: BP 124/81
[2019-11-05] MEDS: ASPIRIN EC 81 MG TABLET.DR PO SCH (08:15)
[2019-11-05] MEDS: ALLOPURINOL 100 MG TABLET PO SCH (08:16)
[2019-11-05] MEDS: LISINOPRIL 20 MG TABLET PO SCH (08:16)
[2019-11-05] MEDS: MERCAPTOPURINE 50 MG PO SCH (08:16)
[2019-11-05] MEDS: AMLODIPINE 5 MG TABLET PO SCH (08:16)
[2019-11-05] MEDS: DILTIAZEM HCL CD 240 MG CAP.SR.24H PO SCH (08:16)
[2019-11-05] MEDS: CLOTRIMAZOLE 1% CREAM 30 GM TUBE TOP SCH ×2 (08:17→17:15)
[2019-11-05 14:25] VITALS: BP 112/66
[2019-11-05 19:48] VITALS: BP 135/68
[2019-11-05] MEDS: ATORVASTATIN 40 MG TABLET PO SCH (21:11)
--- NOTE | 2019-11-06 05:49 | NUR ---
Received patient in bed. AAO x3-4, sometimes forgetful. Not in acute distress or SOB. On room air. Able to make needs known. No Complain of pain. VS checked. Assisted him to the bathroom as needed. Physical assessment done. All due medication given and well tolerated. All needs attended promptly. Skin care rendered. Fall prevention observed. Safety measures maintained. Bed in low and lock position, side rails up x2 for safety. Call light and frequently used items within reach. Continue to monitor and will endorse to oncoming nurse accordingly.
[2019-11-06] MEDS: LEVOTHYROXINE SODIUM 100 MCG TABLET PO SCH (06:39)
[2019-11-06 07:10] VITALS: BP 145/70
--- NOTE | 2019-11-06 07:28 | NUR ---
patient noted resting in bed with eyes closed, no complaints of pain at this time, no signs of distress, call light in reach, bed locked and in lowest position, all needs met
[2019-11-06 08:00] VITALS: BP 143/76
[2019-11-06] MEDS: ASPIRIN EC 81 MG TABLET.DR PO SCH (08:35)
[2019-11-06] MEDS: MERCAPTOPURINE 50 MG PO SCH (08:35)
[2019-11-06] MEDS: DILTIAZEM HCL CD 240 MG CAP.SR.24H PO SCH (08:36)
[2019-11-06] MEDS: ALLOPURINOL 100 MG TABLET PO SCH (08:36)
[2019-11-06] MEDS: LISINOPRIL 20 MG TABLET PO SCH (08:37)
[2019-11-06] MEDS: CLOTRIMAZOLE 1% CREAM 30 GM TUBE TOP SCH ×2 (08:37→18:34)
[2019-11-06] MEDS: AMLODIPINE 5 MG TABLET PO SCH (08:37)
[2019-11-06 16:00] VITALS: BP 110/62
--- NOTE | 2019-11-06 18:44 | NUR ---
New orders Per MD Corbin 1)Patient is to have a physical therapy evaluation 2) XR lumbar puncture for possible normal pressure hydrocephalus 3) CSF glucose, CSF panel and CSF protein 4) MRI of Neck 5) repeat PT eval. and document how patient tolerated walking post lumbar puncture
--- NOTE | 2019-11-06 19:35 | NUR ---
Received patient awake in bed, watching TV at this time. Denies any pain/discomforts at this time. Multiple skin discolorations/skin tears/visually noticeable on BUE/BLE's. Able to ambulate with FWW to the bathroom with minimal assist. Safety measures and fall precaution maintained. Continue care as planned.
[2019-11-06 20:21] VITALS: BP 135/71
[2019-11-06] MEDS: ATORVASTATIN 40 MG TABLET PO SCH (21:00)
[2019-11-07] MEDS: LEVOTHYROXINE SODIUM 100 MCG TABLET PO SCH (06:42)
[2019-11-07 07:04] VITALS: BP 136/80
--- NOTE | 2019-11-07 07:18 | NUR ---
Shift End Report: Vs stable. No complaint presented all night. Quite needy and demanding today. All needs attended and met. No significant event reported all night. Continue current rehab plan of care.
[2019-11-07] MEDS: MERCAPTOPURINE 50 MG PO SCH (08:50)
[2019-11-07] MEDS: ALLOPURINOL 100 MG TABLET PO SCH (08:50)
[2019-11-07] MEDS: ASPIRIN EC 81 MG TABLET.DR PO SCH (08:50)
[2019-11-07] MEDS: DILTIAZEM HCL CD 240 MG CAP.SR.24H PO SCH (08:53)
[2019-11-07] MEDS: AMLODIPINE 5 MG TABLET PO SCH (08:54)
[2019-11-07] MEDS: LISINOPRIL 20 MG TABLET PO SCH (08:54)
[2019-11-07] MEDS: CLOTRIMAZOLE 1% CREAM 30 GM TUBE TOP SCH ×2 (08:54→18:07)
[2019-11-07 08:55] VITALS: BP 137/76
[2019-11-07] MEDS ORDERED: IV NS 1000 ML 1,000 ML IV ONE (09:30)
[2019-11-07] MEDS ORDERED: IV NORMAL SALINE 500 ML IV ONE (09:30)
[2019-11-07 10:15] LABS: CREATININE 1.2 mg/dL (0.6-1.3); POTASSIUM 4.3 mmol/L (3.5-5.1)
[2019-11-07 10:16] LABS: BASOPHILS % (AUTO) 0.9 % (0.0-2.0); LYMPHOCYTES # (AUTO) 0.1 K/uL (20.0-40.0); MEAN CORPUSCULAR VOLUME 106.4 fL (73.0-96.2)
[2019-11-07 10:23] LABS: EOSINOPHILS # (AUTO) 0.3 K/uL (0.0-0.7); HEMATOCRIT 25.5 % (36.7-47.1); HEMOGLOBIN 8.6 g/dL (12.5-16.3); LYMPHOCYTES % (AUTO) 2.8 % (20.5-51.5); MEAN CORPUSCULAR HEMOGLOBIN 36.1 uug (23.8-33.4); MEAN CORPUSCULAR HGB CONC 34 g/dL (32.5-36.3); MONOCYTES % (AUTO) 0.4 % (0.0-11.0); NEUTROPHILS % (AUTO) 87.9 % (38.5-71.5)
[2019-11-07 10:24] LABS: PLATELET COUNT (AUTO) 167 K/uL (152-348); RED BLOOD CELL COUNT(AUTO) 2.39 MIL/uL (4.06-5.63); WHITE BLOOD COUNT (AUTO) 3.4 K/uL (3.6-10.2)
--- NOTE | 2019-11-07 10:32 | NUR ---
patient taken to physical therapy gym for therapy, patient appeared to have passed out and regained consciousness moments later, rapid response called by therapy and then cleared a few minutes later, vitals checked while laying flat (143/83, 99 pulse, 95% on room air), standing up (92/59, 102 pulse, 95% on room air), Md agudelo and Olena in formed with orders for a stat IV, 500 NS bolus and 100ml/hr NS fluids x 1 bag after bolus, stat Labs: Troponin, cbc, and bmp Addendum: 11/07/19 at 1058 by ANDRE PEREZ RN RN patient acquired skin tear during rapid response call, pictures taken and placed in chart, MD Hyatt notified, Data Sme notified
--- NOTE | 2019-11-07 10:45 | NUR ---
patient scheduled for high volume spinal tap for NPH
[2019-11-07] MEDS ORDERED: IV NORMAL SALINE 100 ML BAG IV ONE (11:00)
--- NOTE | 2019-11-07 12:47 | NUR ---
patient left at 1230 for spinal tap procedure Addendum: 11/07/19 at 1543 by ANDRE PEREZ RN RN PATIENT RETURNED AT 1330 AND INSTRUCTED TO LAY IN SUPINE POSITION FOR A TOTAL OF 5 HOURS
--- NOTE | 2019-11-07 14:30 | NUR ---
patient left at 1430 via [place] [facility] ambulance service for an MRI appointment at [facility]
--- NOTE | 2019-11-07 19:35 | NUR ---
Awake, lying flat in bed per instruction , s/p lumbar puncture. Denies any pain/discomforts at this time. Safety measure and fall precaution maintained. Continue care as planned.
[2019-11-07 19:42] VITALS: BP 149/93
[2019-11-07] MEDS: ATORVASTATIN 40 MG TABLET PO SCH (20:43)
[2019-11-07] MEDS: Z GUARD REMEDY PASTE 57 GM TUBE TOP PRN (21:48)
[2019-11-07 22:27] LABS: CSF GLUCOSE 54 mg/dL (40-70); CSF PROTEIN 39 mg/dL (15-45)
[2019-11-08 05:08] VITALS: BP 140/89
[2019-11-08] MEDS: LEVOTHYROXINE SODIUM 100 MCG TABLET PO SCH (06:02)
[2019-11-08] MEDS: Z GUARD REMEDY PASTE 57 GM TUBE TOP PRN (06:03)
--- NOTE | 2019-11-08 06:45 | NUR ---
Shift End Report: VS stable. Slept in between care. All needs attended and met. No complaint presented all night. No significant event reported. Continue current rehab plan of care.
[2019-11-08] MEDS: MERCAPTOPURINE 50 MG PO SCH (08:44)
[2019-11-08] MEDS: ASPIRIN EC 81 MG TABLET.DR PO SCH (08:45)
[2019-11-08] MEDS: DILTIAZEM HCL CD 240 MG CAP.SR.24H PO SCH (08:48)
[2019-11-08] MEDS: AMLODIPINE 5 MG TABLET PO SCH (08:48)
[2019-11-08] MEDS: CLOTRIMAZOLE 1% CREAM 30 GM TUBE TOP SCH ×2 (08:50→16:38)
[2019-11-08] MEDS: ALLOPURINOL 100 MG TABLET PO SCH (08:50)
[2019-11-08] MEDS ORDERED: LISINOPRIL 20 MG TABLET PO SCH (09:00)
--- NOTE | 2019-11-08 10:33 | NUR ---
Received patient awake in bed in stable condition. verbally responsive and alert during rounds. At 1030am, Patient assisted in the bathroom, syncope episode noted in about a while. Rapid response was called. vital signs: BP 131/76, SPO2-88%, applied oxygen 1LPM then remove when stable, went back 100% P-107. MD Olguin, MD navarrete and MD Corbin notified. hold discharge today as agreed with the doctors. EKG ordered and sinus tachycardia relayed to MD Navarrete. ordered CBC, BMP, and IV NS 100cc/hr. BP meds with parameters was ordered by full time. will continue monitor
[2019-11-08] MEDS ORDERED: IV NS 1000 ML 1,000 ML IV ONE (11:15)
[2019-11-08 11:28] LABS: BASOPHILS % (AUTO) 1.1 % (0.0-2.0); EOSINOPHILS # (AUTO) 0.2 K/uL (0.0-0.7); EOSINOPHILS % (AUTO) 8.7 % (0.0-7.0); HEMATOCRIT 26.1 % (36.7-47.1); HEMOGLOBIN 8.8 g/dL (12.5-16.3); LYMPHOCYTES # (AUTO) 0.1 K/uL (20.0-40.0); LYMPHOCYTES % (AUTO) 4.1 % (20.5-51.5); MEAN CORPUSCULAR HGB CONC 34 g/dL (32.5-36.3); MEAN CORPUSCULAR VOLUME 106.3 fL (73.0-96.2); NEUTROPHILS # (AUTO) 2.2 K/uL (1.8-8.9); NEUTROPHILS % (AUTO) 85.1 % (38.5-71.5); PLATELET COUNT (AUTO) 102 K/uL (152-348); WHITE BLOOD COUNT (AUTO) 2.6 K/uL (3.6-10.2)
[2019-11-08 11:29] LABS: RED BLOOD CELL COUNT(AUTO) 2.45 MIL/uL (4.06-5.63)
[2019-11-08 11:30] VITALS: BP 109/77
[2019-11-08 11:34] LABS: CREATININE 1.2 mg/dL (0.6-1.3); POTASSIUM 4.1 mmol/L (3.5-5.1)
[2019-11-08 12:22] LABS: EOSINOPHILS % (MANUAL) 9 % (0-8); LYMPHOCYTES % (MANUAL) 2 % (20-40); MONOCYTES % (MANUAL) 4 % (2-10); NEUTROPHILS % (MANUAL) 85 % (42-75)
--- NOTE | 2019-11-08 15:11 | NUR ---
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 MD Corbin, MD Olguin and MD Navarrete notified. will forward to Dr. Chung as per MD Navarrete. Patient is stable as of this time. will continue monitor
[2019-11-08 15:42] VITALS: BP 138/78
--- NOTE | 2019-11-08 16:56 | NUR ---
As per MD Olguin spoke to PMD and order transfer to telemetry for further observation. MD Chung called and ordered PT/INR/PTT stat order and CT Scan of head without contrast for syncope episode. will endorse
--- NOTE | 2019-11-08 17:35 | NUR ---
Full telephone SBAR report received from MARKUS Quinnoes RN. Addendum: 11/08/19 at 1820 by NEGAR MARTINEZ RN Full telephone SBAR Report received with Reza Velazquez RN. Received from Stacie APARICIO RN.
--- NOTE | 2019-11-08 18:06 | NUR ---
Patient transfer to telemetry for further evaluation around 510pm. DARIN syncope. aware.
--- NOTE | 2019-11-08 18:07 | NUR ---
blood drawn done for PT/INR/PTT
[2019-11-08] MEDS ORDERED: ACET-2154 PO (20:34)
[2019-11-08] MEDS ORDERED: AMLO5TAB9 PO (20:34)
[2019-11-08] MEDS ORDERED: PETR113P TP (20:34)
[2019-11-08] MEDS ORDERED: LEVO100T10 PO (20:34)
[2019-11-08] MEDS ORDERED: LISI-603 PO (20:34)
[2019-11-08] MEDS ORDERED: CLOT15CR63 TP (20:34)
[2019-11-25] MEDS ORDERED: Levofloxacin PO (17:32)
[2019-11-25] MEDS ORDERED: Hydrocortisone Sod Succinate IV (17:32)
[2019-11-25] MEDS ORDERED: TEMA15CA5 PO (17:32)
[2019-11-25] MEDS ORDERED: POTA10CA43 PO (17:32)
[2019-11-25] MEDS ORDERED: HYDR-3972 PO (17:32)
[2019-11-25] MEDS ORDERED: ACYC200C PO (17:32)
[2019-11-25] MEDS ORDERED: CLON0.1T14 PO (17:32)
[2019-11-25] MEDS ORDERED: FLUC200T PO (17:32)
[2019-11-25] MEDS ORDERED: ATOR20TA PO (17:32)
[2019-11-25] MEDS ORDERED: MENT71OI TOP (17:32)
== END 2019-11-08 18:33 | disposition short-term general hospital (02) | DRG 70 ==
PROVIDERS: ADMIT Physical Medicine & Rehabilitation Pain Medicine; ATTEND Physical Medicine & Rehabilitation Pain Medicine
PROC: 009U3ZX Drainage of Spinal Canal, Percutaneous Approach, Diagnostic (ICD-10-PCS; principal; 2019-11-02)
DX: G93.41 Metabolic encephalopathy (principal); I21.A1 Myocardial infarction type 2; D68.59 Other primary thrombophilia; L03.114 Cellulitis of left upper limb; L03.113 Cellulitis of right upper limb; M62.82 Rhabdomyolysis; D61.818 Other pancytopenia; K51.90 Ulcerative colitis, unspecified, without complications; N17.9 Acute kidney failure, unspecified; G91.2 (Idiopathic) normal pressure hydrocephalus; R55 Syncope and collapse; D64.9 Anemia, unspecified; E78.5 Hyperlipidemia, unspecified; E89.0 Postprocedural hypothyroidism; F03.90 Unspecified dementia, unspecified severity, without behavioral disturbance, psychotic disturbance, mood disturbance, and anxiety; I10 Essential (primary) hypertension; Z85.118 Personal history of other malignant neoplasm of bronchus and lung; K21.9 Gastro-esophageal reflux disease without esophagitis; M54.12 Radiculopathy, cervical region; Z85.850 Personal history of malignant neoplasm of thyroid; R53.1 Weakness; S41.112D Laceration without foreign body of left upper arm, subsequent encounter; S41.111D Laceration without foreign body of right upper arm, subsequent encounter; W19.XXXD Unspecified fall, subsequent encounter; E86.0 Dehydration; I95.9 Hypotension, unspecified; N28.1 Cyst of kidney, acquired
CPT/HCPCS: 36415; 62270; 70030-TC; 72141; 82784; 83550; 83615; 83735; 84100; 84155; 84157; 84165; 85025; 85610; 85651; 85730; 86038; 86334; 86430; 89051; 93005; A4663; J0696; J1650; J3370; J3490; J7030; J7040; J7050; J7060; J8499

== ENCOUNTER 2019-11-08 18:15 | Inpatient (IN) | payer MEDICARE ==
[~2019-11-08] VITALS: Ht 167.6 cm; Wt 67.1 kg
--- NOTE | 2019-11-08 19:31 | NUR ---
Received report from AM nurse. Patient pending admission process. Admitting orders received, waiting for rest of admission orders. For STAT CT of head, patient transported by [facility] to CT room. Pt alert and verbally responsive. Left in stable condition.
[2019-11-08 19:33] VITALS: BP 124/76
--- NOTE | 2019-11-08 19:42 | NUR ---
Pt back from CT, stable condition. Verbalized no pain or discomfort.
[2019-11-08] MEDS ORDERED: TEMAZEPAM 7.5 MG CAPSULE PO PRN (21:00)
[2019-11-08] MEDS ORDERED: CLOTRIMAZOLE 1% CREAM 30 GM TUBE TP PRN (21:00)
[2019-11-08] MEDS ORDERED: MORPHINE SULFATE 2 MG/1 ML DISP.SYRIN IV PRN (21:15)
[2019-11-08] MEDS ORDERED: ENALAPRILAT DIHYDRATE 1.25 MG/1 ML VIAL IV PRN (21:15)
[2019-11-08] MEDS ORDERED: ONDANSETRON 4 MG/2 ML VIAL IV PRN (21:15)
[2019-11-08] MEDS: ACETAMINOPHEN 325 MG TABLET PO PRN (21:59)
[2019-11-08] MEDS: ATORVASTATIN 40 MG TABLET PO SCH (21:59)
[2019-11-08] MEDS: CEFEPIME HCL 1 G in IV DEXTROSE 5% 50 ML IV SCH (22:00)
[2019-11-09 00:03] VITALS: BP 119/73
[2019-11-09 05:15] VITALS: BP 124/79
[2019-11-09] MEDS: CEFEPIME HCL 1 G in IV DEXTROSE 5% 50 ML IV SCH ×3 (05:58→21:03)
[2019-11-09] MEDS: LEVOTHYROXINE SODIUM 100 MCG TABLET PO SCH (06:00)
--- NOTE | 2019-11-09 06:00 | NUR ---
Pt fully admitted with skin issues documented and photos taken. Patient sleeping comfortably at this time. No changes in level of orientation/mental status throughout shift. When awake, fully alert and oriented. Able to verbalize needs. 1x complaint of mild headache, Tylenol given and effective. Bleeding and extra precautions maintained due to pancytopenia with low platelets and low WBC noted. Dr. Chung saw patient last night at around 1999, RN present when MD explained disease process and dx rule out process with pending lab results. Patient is a possible transfer to a higher level of care, waiting for results. All needs attended throughout shift. Fall and safety precautions maintained. Normal Sinus rhythm throughout shift, with episodes of occasional PVCs (Trigeminy) for a few minutes, but now with no ectopies. No BM Will continue to monitor and endorse accordingly.
[2019-11-09 06:18] LABS: BILIRUBIN,TOTAL 0.8 mg/dL (0.2-1.0); CREATININE 1.1 mg/dL (0.6-1.3); MAGNESIUM 1.7 mg/dL (1.8-2.4); PHOSPHOROUS 3.6 mg/dL (2.5-4.9); POTASSIUM 3.7 mmol/L (3.5-5.1); TOTAL PROTEIN, SERUM 6.1 g/dL (6.4-8.2)
[2019-11-09 06:24] LABS: EOSINOPHILS # (AUTO) 0.3 K/uL (0.0-0.7); HEMOGLOBIN 8.4 g/dL (12.5-16.3); LYMPHOCYTES # (AUTO) 0.1 K/uL (20.0-40.0); NEUTROPHILS # (AUTO) 1.4 K/uL (1.8-8.9)
[2019-11-09 06:27] LABS: BASOPHILS % (AUTO) 0.9 % (0.0-2.0); HEMATOCRIT 24.3 % (36.7-47.1); LYMPHOCYTES % (AUTO) 5.9 % (20.5-51.5); MEAN CORPUSCULAR HEMOGLOBIN 36.4 uug (23.8-33.4); MEAN CORPUSCULAR HGB CONC 35 g/dL (32.5-36.3); MEAN CORPUSCULAR VOLUME 104.9 fL (73.0-96.2); NEUTROPHILS % (AUTO) 77.2 % (38.5-71.5); PLATELET COUNT (AUTO) 102 K/uL (152-348)
[2019-11-09 06:45] LABS: RED BLOOD CELL COUNT(AUTO) 2.32 MIL/uL (4.06-5.63)
[2019-11-09 06:48] LABS: WHITE BLOOD COUNT (AUTO) 1.8 K/uL (3.6-10.2)
[2019-11-09 07:54] LABS: THYROID STIMULATING HORMONE 2.225 mIU/mL (0.358-3.740)
[2019-11-09] MEDS ORDERED: CLOTRIMAZOLE 1% CREAM 30 GM TUBE TP PRN (08:00)
[2019-11-09] MEDS: ALLOPURINOL 100 MG TABLET PO SCH (08:20)
[2019-11-09] MEDS: AMLODIPINE 5 MG TABLET PO SCH (08:20)
[2019-11-09] MEDS: DILTIAZEM HCL CD 120 MG CAP.SR.24H PO SCH (08:25)
[2019-11-09] MEDS ORDERED: ASPIRIN EC 81 MG TABLET.DR PO SCH (09:00)
[2019-11-09] MEDS ORDERED: MERCAPTOPURINE PO SCH (09:00)
[2019-11-09 09:21] LABS: EOSINOPHILS % (MANUAL) 12 % (0-8); LYMPHOCYTES % (MANUAL) 5 % (20-40); MONOCYTES % (MANUAL) 3 % (2-10); NEUTROPHILS % (MANUAL) 80 % (42-75)
[2019-11-09] MEDS ORDERED: MAGNESIUM OXIDE 400 MG TABLET PO ONE (09:30)
[2019-11-09 11:07] VITALS: BP 113/65
[2019-11-09] MEDS: MERCAPTOPURINE 50 MG PO SCH (11:30)
[2019-11-09] MEDS ORDERED: Z GUARD REMEDY PASTE 57 GM TUBE TOP PRN (11:45)
--- NOTE | 2019-11-09 12:34 | NUR ---
WOUND CARE CONSULT: PT PRESENTS WITH MULTIPLE AREAS OF BRUISING/SKIN DISCOLORATION TO EXTREMITIES WELL SKIN TEARS TO RT AND LEFT ARM AND TO RT HAND, RASH TO PERINEUM AND GROIN FOLDS, WOUND WITH YELLOW SLOUGH TO RT LATERAL LOWER LEG, ALL PRESENT ON ADMISSION. RECOMMEND DPM CONSULT FOR RT LEG. DR OVALLES NOTIFIED OF CONSULT REQUEST. RECOMMENDATIONS MADE FOR WOUND CARE AND SKIN PROTECTION. DISCUSSED WITH NURSING STAFF. WILL SEE PRN. RAMIREZ IN AGREEMENT WITH PLAN OF CARE. Addendum: 11/09/19 at 1236 by KENRICK HARDIN RN Amended: Links added.
--- NOTE | 2019-11-09 13:15 | NUR ---
Director Of Services consultation received by this SW for DC planning. This SW consulted with [facility] regarding this referral, and it was founded that this referral was submitted in error for SS consultation. Patient will be referred to case management for DC planning.
[2019-11-09] MEDS: ACETAMINOPHEN 325 MG TABLET PO PRN (15:06)
[2019-11-09 15:23] VITALS: BP 116/68
[2019-11-09] MEDS: CLOTRIMAZOLE 1% CREAM 30 GM TUBE TP SCH (16:59)
--- NOTE | 2019-11-09 18:57 | NUR ---
PATIENT SEEN BY DR. TRIPP WITH NO ORDERS TO TRANSFER AND WAIT FOR DR. ABDUL ,INFECTIOUS DISEASE FOR FURTHER ORDER
--- NOTE | 2019-11-09 20:00 | NUR ---
Patient had x1 episode of syncope while standing up. No injuries noted. Patient safely placed back in bed
--- NOTE | 2019-11-09 21:00 | NUR ---
Patient seen and examined by Kary INDUSTRIAL CONTROLLER (ID) w/ n.o for urine cx and to collect stool for cdiff if w/ episode of loose, watery stool
[2019-11-09] MEDS: ATORVASTATIN 40 MG TABLET PO SCH (21:03)
[2019-11-09 21:55] VITALS: BP 99/78
--- NOTE | 2019-11-09 22:00 | NUR ---
Patient noted w/ loose stool, stool sample collected for cdiff. Patient placed on contact isolation for possible c-diff
[2019-11-09 22:44] LABS: *BILIRUBIN,URIN NEGATIVE (NEGATIVE); *BLOOD, URINE NEGATIVE (NEGATIVE); *CLARITY,URINE CLEAR (CLEAR); *COLOR,URINE YELLOW (YELLOW); *KETONES,URINE NEGATIVE (NEGATIVE); *UROBILINOGEN,URINE 0.2 E.U./dl (NORMAL); LEUKOCYTE ESTERASE ,URINE NEGATIVE (NEGATIVE); NITRITE, URINE NEGATIVE (NEGATIVE); PH,URINE 5.5 (5.0-8.0); UGLUCOSE NEGATIVE (NEGATIVE)
[2019-11-10 00:20] VITALS: BP 106/85
[2019-11-10 05:08] VITALS: BP 123/75
[2019-11-10] MEDS: CEFEPIME HCL 1 G in IV DEXTROSE 5% 50 ML IV SCH ×3 (05:30→20:54)
[2019-11-10 06:38] LABS: EOSINOPHILS # (AUTO) 0.3 K/uL (0.0-0.7); HEMOGLOBIN 8.6 g/dL (12.5-16.3); LYMPHOCYTES # (AUTO) 0.1 K/uL (20.0-40.0); MONOCYTES % (AUTO) 1.1 % (0.0-11.0); NEUTROPHILS # (AUTO) 1.1 K/uL (1.8-8.9)
[2019-11-10 06:40] LABS: EOSINOPHILS % (AUTO) 18.9 % (0.0-7.0); HEMATOCRIT 24.7 % (36.7-47.1); LYMPHOCYTES % (AUTO) 5.6 % (20.5-51.5); MEAN CORPUSCULAR HEMOGLOBIN 36.3 uug (23.8-33.4); MEAN CORPUSCULAR HGB CONC 35 g/dL (32.5-36.3); MEAN CORPUSCULAR VOLUME 104.5 fL (73.0-96.2); NEUTROPHILS % (AUTO) 73.4 % (38.5-71.5); PLATELET COUNT (AUTO) 113 K/uL (152-348)
--- NOTE | 2019-11-10 06:45 | NUR ---
Patient slept intermittently. No SOB noted. No complaints of dizziness. SR on Tele monitor. All needs attended. Will endorse accordingly
[2019-11-10 06:52] LABS: ALANINE AMINOTRANSFERASE 56 U/L (16-63); ALKALINE PHOSPHATASE 116 U/L (50-136); ASPARTATE AMINOTRANSFERASE 31 U/L (15-37); BILIRUBIN,TOTAL 0.7 mg/dL (0.2-1.0); CARBON DIOXIDE 27 mmol/L (21-32); CHLORIDE 103 mmol/L (98-107); CREATININE 1.2 mg/dL (0.6-1.3); GLUCOSE 102 mg/dL (74-106); POTASSIUM 3.8 mmol/L (3.5-5.1); TOTAL PROTEIN, SERUM 6.2 g/dL (6.4-8.2); UREA NITROGEN, BLOOD 14 mg/dL (7-18)
[2019-11-10 06:56] LABS: RED BLOOD CELL COUNT(AUTO) 2.37 MIL/uL (4.06-5.63)
[2019-11-10 06:58] LABS: WHITE BLOOD COUNT (AUTO) 1.6 K/uL (3.6-10.2)
[2019-11-10 07:26] LABS: EOSINOPHILS % (MANUAL) 16 % (0-8); LYMPHOCYTES % (MANUAL) 1 % (20-40); MONOCYTES % (MANUAL) 1 % (2-10); NEUTROPHILS % (MANUAL) 82 % (42-75)
--- NOTE | 2019-11-10 07:35 | NUR ---
Received patient in bed alert and oriented x3 . on contact isolation. IV intact and patent. No SOB noted at this time. kept clean and dry at all times. will continue to monitor.
[2019-11-10] MEDS: ACETAMINOPHEN 325 MG TABLET PO PRN (08:30)
[2019-11-10] MEDS: LEVOTHYROXINE SODIUM 100 MCG TABLET PO SCH (09:16)
[2019-11-10] MEDS: DILTIAZEM HCL CD 120 MG CAP.SR.24H PO SCH (09:17)
[2019-11-10] MEDS: MERCAPTOPURINE 50 MG PO SCH (09:18)
[2019-11-10] MEDS: ALLOPURINOL 100 MG TABLET PO SCH (09:18)
[2019-11-10] MEDS: THERAHONEY GEL 1.5 OZ TUBE TOP SCH (09:20)
[2019-11-10] MEDS: CLOTRIMAZOLE 1% CREAM 30 GM TUBE TP SCH ×2 (09:20→17:09)
[2019-11-10] MEDS: SODIUM HYPOCHLORITE 0.125% 473 ML BOTTLE TP SCH (09:21)
[2019-11-10] MEDS: AMLODIPINE 5 MG TABLET PO SCH (09:21)
[2019-11-10 11:49] VITALS: BP 138/78
[2019-11-10 15:38] VITALS: BP 127/75
[2019-11-10] MEDS ORDERED: LIDOCAINE HCL 1% 20 ML VIAL IJ PRN (17:00)
--- NOTE | 2019-11-10 18:00 | NUR ---
Patient seen by Dr. Chung and did bone marrow biopsy.
--- NOTE | 2019-11-10 19:21 | NUR ---
Patient in bed, alert and oriented. IV intact and patent. continue on isolation precaution. No SOB noted at this time. kept clean and dry at all times. bed in low position and side rails up x2. provide safety and comfort at all times. will continue to monitor.
[2019-11-10 19:29] LABS: BASOPHILS % (AUTO) 0.9 % (0.0-2.0); EOSINOPHILS # (AUTO) 0.3 K/uL (0.0-0.7); EOSINOPHILS % (AUTO) 21.4 % (0.0-7.0); HEMATOCRIT 24.4 % (36.7-47.1); HEMOGLOBIN 8.3 g/dL (12.5-16.3); LYMPHOCYTES # (AUTO) 0.1 K/uL (20.0-40.0); LYMPHOCYTES % (AUTO) 6.8 % (20.5-51.5); MEAN CORPUSCULAR HEMOGLOBIN 36.2 uug (23.8-33.4); MEAN CORPUSCULAR HGB CONC 34 g/dL (32.5-36.3); MEAN CORPUSCULAR VOLUME 106.2 fL (73.0-96.2); MONOCYTES % (AUTO) 1.5 % (0.0-11.0); NEUTROPHILS % (AUTO) 69.4 % (38.5-71.5); PLATELET COUNT (AUTO) 138 K/uL (152-348)
[2019-11-10 19:39] LABS: WHITE BLOOD COUNT (AUTO) 1.5 K/uL (3.6-10.2)
[2019-11-10 20:09] LABS: BAND % (MANUAL) 12 % (0-10); EOSINOPHILS % (MANUAL) 24 % (0-8); LYMPHOCYTES % (MANUAL) 7 % (20-40); MONOCYTES % (MANUAL) 1 % (2-10); NEUTROPHILS % (MANUAL) 56 % (42-75)
[2019-11-10 20:47] VITALS: BP 123/68
[2019-11-10] MEDS: ATORVASTATIN 40 MG TABLET PO SCH (20:54)
[2019-11-11 00:13] VITALS: BP 127/73
[2019-11-11 04:00] VITALS: BP 138/82
--- NOTE | 2019-11-11 06:48 | NUR ---
Patient slept well. No complaints of pain. Sinus tach on Tele monitor. IV on R wrist 22g intact and patent. All needs attended. Will endorse accordingly
--- NOTE | 2019-11-11 07:45 | NUR ---
Awake, alert, oriented x 4, on moderate high back rest, denies pain, not in distress.
[2019-11-11] MEDS: DILTIAZEM HCL CD 120 MG CAP.SR.24H PO SCH (10:37)
[2019-11-11] MEDS: CEFEPIME HCL 1 G in IV DEXTROSE 5% 50 ML IV SCH ×2 (10:37→20:32)
[2019-11-11] MEDS: ALLOPURINOL 100 MG TABLET PO SCH (10:38)
[2019-11-11] MEDS: AMLODIPINE 5 MG TABLET PO SCH (10:38)
[2019-11-11] MEDS: MERCAPTOPURINE 50 MG PO SCH (10:38)
[2019-11-11] MEDS: LEVOTHYROXINE SODIUM 100 MCG TABLET PO SCH (10:38)
[2019-11-11] MEDS: SODIUM HYPOCHLORITE 0.125% 473 ML BOTTLE TP SCH (10:41)
[2019-11-11] MEDS: THERAHONEY GEL 1.5 OZ TUBE TOP SCH (10:41)
[2019-11-11] MEDS: CLOTRIMAZOLE 1% CREAM 30 GM TUBE TP SCH ×2 (10:42→16:33)
[2019-11-11 11:49] VITALS: BP 109/65
[2019-11-11] MEDS: ACETAMINOPHEN 325 MG TABLET PO PRN (15:14)
[2019-11-11 15:25] VITALS: BP 115/73
--- NOTE | 2019-11-11 18:25 | NUR ---
Patient AAOx4. IV on R FA intact and patent. No s/s of acute distress. No syncopal episode throughout shift. Wound dressings changed. Reverse isolation precautions maintained. Safety measures implemented and effective. All needs attended. Call light within reach. Will endorse care accordingly.
--- NOTE | 2019-11-11 19:00 | NUR ---
ALERT ORIENTED, NO SOB NO CHEST PAIN, PATIENT HAS NO COMPLAIN OF PAIN, CONT TO MONITOR. CONT TO OBSERVER REVERSE ISOLATION, CONT TO MONITOR.
[2019-11-11 19:58] VITALS: BP 109/70
[2019-11-11] MEDS: ATORVASTATIN 40 MG TABLET PO SCH (20:32)
[2019-11-12 04:02] VITALS: BP 101/74
[2019-11-12 06:07] LABS: BASOPHILS % (AUTO) 0.5 % (0.0-2.0); HEMOGLOBIN 7.9 g/dL (12.5-16.3); LYMPHOCYTES # (AUTO) 0.1 K/uL (20.0-40.0); MEAN CORPUSCULAR VOLUME 104.4 fL (73.0-96.2); NEUTROPHILS # (AUTO) 0.5 K/uL (1.8-8.9)
[2019-11-12 06:09] LABS: EOSINOPHILS # (AUTO) 0.3 K/uL (0.0-0.7); HEMATOCRIT 22.5 % (36.7-47.1); LYMPHOCYTES % (AUTO) 8.9 % (20.5-51.5); MEAN CORPUSCULAR HEMOGLOBIN 36.8 uug (23.8-33.4); MEAN CORPUSCULAR HGB CONC 35 g/dL (32.5-36.3); MONOCYTES % (AUTO) 1.5 % (0.0-11.0); PLATELET COUNT (AUTO) 235 K/uL (152-348)
[2019-11-12 06:27] LABS: MAGNESIUM 1.6 mg/dL (1.8-2.4); PHOSPHOROUS 3.3 mg/dL (2.5-4.9); POTASSIUM 3.9 mmol/L (3.5-5.1)
--- NOTE | 2019-11-12 06:36 | NUR ---
PATIENT SLEPT MOST OF THE NIGHT, NO COMPLAIN OF PAIN, PATIENT WAS KEPT CLEAN DRY AND COMFORTABLE, OBSERVE REVERSE ISOLATION.
[2019-11-12 06:40] LABS: THYROID STIMULATING HORMONE 2.359 mIU/mL (0.358-3.740)
[2019-11-12 07:05] LABS: RED BLOOD CELL COUNT(AUTO) 2.16 MIL/uL (4.06-5.63)
[2019-11-12 07:06] LABS: EOSINOPHILS % (AUTO) 35.1 % (0.0-7.0)
[2019-11-12 07:16] LABS: BAND % (MANUAL) 3 % (0-10); EOSINOPHILS % (MANUAL) 40 % (0-8); LYMPHOCYTES % (MANUAL) 12 % (20-40); MONOCYTES % (MANUAL) 4 % (2-10); NEUTROPHILS % (MANUAL) 41 % (42-75)
--- NOTE | 2019-11-12 07:21 | NUR ---
PATIENT WBC 1.[address] CULP WAITING FOR ORDER. ENDORSED TO NEXT SHIFT.
--- NOTE | 2019-11-12 07:45 | NUR ---
received pt. resting in bed alert oriented x4. pt. on reverse isolation for low WBCs. critical value of WBC 1.0 reorted to by PM RN. Will followup. pt. denies pain/ discomfort at this time. IV in R wrist 22 gauge intact patent running prescribed fluids. pt. on room air. pt. denies sob/ difficulty breathing. all needs met. safety measures in place. call light within reach. will continue to monitor pt.
[2019-11-12] MEDS: ALLOPURINOL 100 MG TABLET PO SCH (08:26)
[2019-11-12] MEDS: LEVOTHYROXINE SODIUM 100 MCG TABLET PO SCH (08:26)
[2019-11-12] MEDS: MERCAPTOPURINE 50 MG PO SCH (08:27)
[2019-11-12] MEDS: THERAHONEY GEL 1.5 OZ TUBE TOP SCH (08:28)
[2019-11-12] MEDS: DILTIAZEM HCL CD 120 MG CAP.SR.24H PO SCH (08:28)
[2019-11-12] MEDS: SODIUM HYPOCHLORITE 0.125% 473 ML BOTTLE TP SCH (08:28)
[2019-11-12] MEDS: CLOTRIMAZOLE 1% CREAM 30 GM TUBE TP SCH ×2 (08:29→18:22)
[2019-11-12] MEDS: CEFEPIME HCL 1 G in IV DEXTROSE 5% 50 ML IV SCH ×2 (08:33→20:08)
[2019-11-12] MEDS: ACETAMINOPHEN 325 MG TABLET PO PRN ×2 (08:38→20:14)
--- NOTE | 2019-11-12 08:53 | NUR ---
Received response from Dr. Olguin about critical level for WBC of 1.0. Instructed to report critical to oncologist Dr. Feldman. Called Dr. feldman at office phone # with no pickup. Will call again shortly.
--- NOTE | 2019-11-12 08:59 | NUR ---
called dr. feldman again, no answer. left message to call back [facility]
--- NOTE | 2019-11-12 09:20 | NUR ---
Spoke to Dr. Chung about critical lab value for WBC 1.0. No new orders. pt. does not have temperature. oral temperature at 98.4. Changed all wound dressings accordingly. pt. denies pain/ discomfort. all needs met. safety measures in place.
[2019-11-12] MEDS ORDERED: MAGNESIUM SULFATE/D5W 100 ML IV SCH (11:30)
--- NOTE | 2019-11-12 11:41 | NUR ---
Pt.'s IV started leaking. New IV in R AC 22 gauge intact patent.
[2019-11-12 12:05] VITALS: BP 108/62
[2019-11-12 15:53] VITALS: BP 112/63
--- NOTE | 2019-11-12 15:53 | NUR ---
stereotype finisher asked to get orthostatic hyotension blood pressure. BP laying is 112/63 HR 90. BP sitting is 93/51 HR 100. BP standing is 88/49 HR 106. Reported to stereotype finisher.
[2019-11-12 19:44] VITALS: BP 124/73
[2019-11-12] MEDS: ATORVASTATIN 40 MG TABLET PO SCH (20:09)
--- NOTE | 2019-11-12 20:14 | NUR ---
PATIENT HAS TEMP 102. NOTIFY DR. CULP. WITH NO NEW ORDER AT THIS TIME. PATIENT SEEN BY DR TRIPP, WITH ORDER OF BLOOD CULTURE 1830. PATIENT CONTINUE ON REVERSE ISOLATION DUE TO LOW WBC. PATIENT ALERT ORIENTED, NO COMPLAIN OF PAIN AT THIS TIME. CONT TO MONITOR.
--- NOTE | 2019-11-12 20:14 | NUR ---
PATIENT HAS TEMP, GIVEN TYLENOL 650MG PO PLUS COOLING MEASURES, PATIENT HAS NO S/S OF DISTRESS.
--- NOTE | 2019-11-12 21:20 | NUR ---
RECHECK TEMP 101.2, CONTINUE COOLING MEASURE. NO S/S OF DISTRESS.
--- NOTE | 2019-11-12 22:20 | NUR ---
RECHECK TEMP. 99.6. CONTINUE COOLING MEASURES, NO COMPLAIN OF PAIN, NO S/S OF DISTRESS.
[2019-11-13 04:03] VITALS: BP 109/70
[2019-11-13] MEDS: CEFEPIME HCL 1 G in IV DEXTROSE 5% 50 ML IV SCH ×2 (04:17→11:17)
--- NOTE | 2019-11-13 05:45 | NUR ---
PATIENT ALERT ORIENTED, NO COMPLAIN OF PAIN. PATIENT CONTINUE ON REVERSE ISOLATION. PATIENT AFEBRILE, ABLE TO TURN AND REPOSITION SELF, KEPT CLEAN AND DRY. CONT TO MONITOR.
[2019-11-13 06:28] LABS: BASOPHILS % (AUTO) 0.3 % (0.0-2.0); EOSINOPHILS # (AUTO) 0.2 K/uL (0.0-0.7); EOSINOPHILS % (AUTO) 16.2 % (0.0-7.0); HEMATOCRIT 21.7 % (36.7-47.1); HEMOGLOBIN 7.5 g/dL (12.5-16.3); LYMPHOCYTES # (AUTO) 0.1 K/uL (20.0-40.0); LYMPHOCYTES % (AUTO) 6.7 % (20.5-51.5); MEAN CORPUSCULAR HEMOGLOBIN 36.3 uug (23.8-33.4); MEAN CORPUSCULAR HGB CONC 35 g/dL (32.5-36.3); MEAN CORPUSCULAR VOLUME 105.3 fL (73.0-96.2); NEUTROPHILS # (AUTO) 0.8 K/uL (1.8-8.9); NEUTROPHILS % (AUTO) 74.8 % (38.5-71.5); PLATELET COUNT (AUTO) 306 K/uL (152-348)
[2019-11-13 06:34] LABS: RED BLOOD CELL COUNT(AUTO) 2.06 MIL/uL (4.06-5.63)
[2019-11-13 06:36] LABS: WHITE BLOOD COUNT (AUTO) 1.1 K/uL (3.6-10.2)
[2019-11-13 06:39] LABS: BILIRUBIN,TOTAL 0.5 mg/dL (0.2-1.0); CREATININE 1.2 mg/dL (0.6-1.3); PHOSPHOROUS 3.5 mg/dL (2.5-4.9); POTASSIUM 4.2 mmol/L (3.5-5.1); TOTAL PROTEIN, SERUM 6.1 g/dL (6.4-8.2)
--- NOTE | 2019-11-13 07:07 | NUR ---
RBC 1.1. NOTIFY DR AMAYA WITH NO NEW ORDER. CONT TO MONITOR. ENDORSED TO NEXT SHIFT.
--- NOTE | 2019-11-13 08:58 | NUR ---
received pt. resting in bed alert oriented x4. pt. on reverse isolation for low WBCs. pt. denies pain/ discomfort at this time. IV in R AC 22 gauge intact patent. pt. on room air. pt. denies sob/ difficulty breathing. all needs met. safety measures in place. call light within reach. will continue to monitor pt.
[2019-11-13] MEDS ORDERED: ASPIRIN 81 MG TAB.CHEW PO SCH (09:00)
[2019-11-13] MEDS: ALLOPURINOL 100 MG TABLET PO SCH (09:08)
[2019-11-13] MEDS: LEVOTHYROXINE SODIUM 100 MCG TABLET PO SCH (09:08)
[2019-11-13] MEDS: MERCAPTOPURINE 50 MG PO SCH (09:08)
[2019-11-13] MEDS: THERAHONEY GEL 1.5 OZ TUBE TOP SCH (09:09)
[2019-11-13] MEDS: CLOTRIMAZOLE 1% CREAM 30 GM TUBE TP SCH ×2 (09:09→17:02)
[2019-11-13] MEDS: SODIUM HYPOCHLORITE 0.125% 473 ML BOTTLE TP SCH (09:10)
[2019-11-13 12:01] VITALS: BP 117/65
[2019-11-13] MEDS: FLUDROCORTISONE ACETATE 0.1 MG TABLET PO SCH (12:39)
[2019-11-13] MEDS ORDERED: ACYCLOVIR 200 MG CAPSULE PO SCH (13:48)
--- NOTE | 2019-11-13 15:32 | NUR ---
Clinical Pharmacy Note: Vancomycin Dosing per Pharmacy Subjective: Vancomycin IV to start on this 79 yo male patient for empiric tx (waiting for ID note). Objective: BUN 23/Scr 1.2 WBC 1.1 Temperature 98.7 Assessment/Plan: Will start vancomycin 1000mg IVPB Q22hr for a predicted vancomycin steady state trough level of 15 mcg/ml. 1st dose today at 1600. Will draw a vancomycin trough level prior to the 4th dose of vancomycin (not ordered yet). Will monitor renal function and adjust vancomycin dose, if needed, should renal function change significantly. Will follow daily.
[2019-11-13 16:00] VITALS: BP 107/60
[2019-11-13 16:09] VITALS: BP 123/67
[2019-11-13] MEDS: FLUCONAZOLE 100 MG TABLET PO SCH (17:01)
[2019-11-13] MEDS: VANCOMYCIN IV 1,000 MG in IV DEXTROSE 5% 250 ML IV SCH (17:01)
[2019-11-13] MEDS ORDERED: ACYCLOVIR 200 MG CAPSULE PO ONE (18:00)
--- NOTE | 2019-11-13 19:45 | NUR ---
PATIENT ALERT ORIENTED, NO COMPLAIN OF PAIN, CONT ON REVERSE ISOLATION. PATIENT WAS KEPT CLEAN AND DRY, TX CONTINUE ON MULTIPLE WOUNDS OF ARMS AND LEGS, CALL LIGHT WITHIN REACH.
[2019-11-13 21:06] VITALS: BP 118/67
[2019-11-13] MEDS: ACETAMINOPHEN 325 MG TABLET PO PRN (21:06)
[2019-11-13] MEDS: ATORVASTATIN 40 MG TABLET PO SCH (21:06)
[2019-11-13] MEDS: MEROPENEM 0.5 G in IV NORMAL SALINE 50 ML IV SCH (21:10)
[2019-11-14] MEDS: MEROPENEM 0.5 G in IV NORMAL SALINE 50 ML IV SCH ×3 (04:18→21:15)
[2019-11-14 06:00] VITALS: BP 136/77
[2019-11-14 06:09] LABS: BASOPHILS % (AUTO) 0.2 % (0.0-2.0); EOSINOPHILS # (AUTO) 0.5 K/uL (0.0-0.7); HEMATOCRIT 21.3 % (36.7-47.1); LYMPHOCYTES # (AUTO) 0.1 K/uL (20.0-40.0); MEAN CORPUSCULAR HEMOGLOBIN 36.8 uug (23.8-33.4); MEAN CORPUSCULAR HGB CONC 35 g/dL (32.5-36.3); MEAN CORPUSCULAR VOLUME 105.3 fL (73.0-96.2); MONOCYTES % (AUTO) 1.2 % (0.0-11.0); NEUTROPHILS # (AUTO) 0.7 K/uL (1.8-8.9); NEUTROPHILS % (AUTO) 56.4 % (38.5-71.5); PLATELET COUNT (AUTO) 397 K/uL (152-348)
[2019-11-14 06:17] LABS: CREATININE 1.1 mg/dL (0.6-1.3); PHOSPHOROUS 3.6 mg/dL (2.5-4.9); POTASSIUM 4.2 mmol/L (3.5-5.1)
[2019-11-14 06:18] LABS: EOSINOPHILS % (AUTO) 35.2 % (0.0-7.0); HEMOGLOBIN 7.4 g/dL (12.5-16.3); RED BLOOD CELL COUNT(AUTO) 2.02 MIL/uL (4.06-5.63); WHITE BLOOD COUNT (AUTO) 1.3 K/uL (3.6-10.2)
--- NOTE | 2019-11-14 06:23 | NUR ---
PATIENT LAB REPORT WBC 1.3, HGH 7.4, HCT 21.3. NOTIFY DR. AMAYA.
--- NOTE | 2019-11-14 06:34 | NUR ---
DR AMAYA HAS NO NEW ORDER.
[2019-11-14 08:09] LABS: BAND % (MANUAL) 5 % (0-10); BASOPHILS % (MANUAL) 1 % (0-2); EOSINOPHILS % (MANUAL) 38 % (0-8); LYMPHOCYTES % (MANUAL) 7 % (20-40); MONOCYTES % (MANUAL) 1 % (2-10); NEUTROPHILS % (MANUAL) 48 % (42-75)
[2019-11-14] MEDS: MERCAPTOPURINE 50 MG PO SCH (08:35)
[2019-11-14] MEDS: ALLOPURINOL 100 MG TABLET PO SCH (08:35)
[2019-11-14] MEDS: FLUDROCORTISONE ACETATE 0.1 MG TABLET PO SCH (08:35)
[2019-11-14] MEDS: LEVOTHYROXINE SODIUM 100 MCG TABLET PO SCH (08:35)
[2019-11-14] MEDS: SODIUM HYPOCHLORITE 0.125% 473 ML BOTTLE TP SCH (08:40)
[2019-11-14] MEDS: THERAHONEY GEL 1.5 OZ TUBE TOP SCH (08:40)
[2019-11-14] MEDS: CLOTRIMAZOLE 1% CREAM 30 GM TUBE TP SCH ×2 (08:40→16:34)
[2019-11-14] MEDS: ACETAMINOPHEN 325 MG TABLET PO PRN (10:51)
[2019-11-14 12:03] VITALS: BP 94/68
--- NOTE | 2019-11-14 14:49 | NUR ---
Clinical Pharmacy Note: Vancomycin Dosing per Pharmacy Subjective: Vancomycin IV to continue on this 79 yo male patient for empiric tx (waiting for ID note). Objective: BUN 25/Scr 1.1 WBC 1.3 Temperature 97.4 Assessment/Plan: Will continue vancomycin 1000mg IVPB Q22hr for a predicted vancomycin steady state trough level of 15 mcg/ml. 2nd dose today at 1400. Will draw a vancomycin trough level prior to the 4th dose of vancomycin (not ordered yet). Will monitor renal function and adjust vancomycin dose, if needed, should renal function change significantly. Will follow daily.
[2019-11-14] MEDS: VANCOMYCIN IV 1,000 MG in IV DEXTROSE 5% 250 ML IV SCH (15:58)
--- NOTE | 2019-11-14 16:00 | NUR ---
Acyclovir 400mg given at 1404, instructed by pharmacist not to give.
[2019-11-14 16:05] VITALS: BP 122/71
[2019-11-14] MEDS: ACYCLOVIR 200 MG CAPSULE PO SCH ×2 (16:09→21:15)
[2019-11-14] MEDS: FLUCONAZOLE 100 MG TABLET PO SCH (16:15)
--- NOTE | 2019-11-14 19:20 | NUR ---
PATIENT IN BED WITH HOB ELEVATED, ALERT AND ORIENTED X3, WATCHING TV. NO SOB AND NO C/O PAIN AT THIS TIME. KEPT CLEAN AND DRY AT ALL TIMES. BED IN LOW POSITION AND SIDE RAILS UP . ALL NEEDS ATTENDED. CALL LIGHT WITHIN REACH. WILL CONTINUE TO MONITOR.
--- NOTE | 2019-11-14 19:30 | NUR ---
PATIENT ALERT ORIENTED, NO SOB NO CHEST PAIN. PATIENT CONTINUE ON REVERSE ISOLATION DUE LOW WBC. PATIENT HAS NO COMPLAIN OF PAIN AT THIS TIME. KEPT CLEAN AND DRY. PATIENT HAVE R ARM EDEMA DR. TRIPP HAS NEW ORDER. PATIENT R ARM ELEVATE WITH PILLOW, KEPT SITE CLEAN AND DRY. CONT TO MONITOR.
[2019-11-14 19:57] VITALS: BP 126/70
[2019-11-14] MEDS: ATORVASTATIN 40 MG TABLET PO SCH (21:15)
[2019-11-15] MEDS: MEROPENEM 0.5 G in IV NORMAL SALINE 50 ML IV SCH ×3 (03:34→20:25)
[2019-11-15] MEDS: ACETAMINOPHEN 325 MG TABLET PO PRN (03:52)
[2019-11-15 06:21] LABS: EOSINOPHILS # (AUTO) 0.5 K/uL (0.0-0.7); LYMPHOCYTES # (AUTO) 0.1 K/uL (20.0-40.0); MONOCYTES % (AUTO) 1.4 % (0.0-11.0); NEUTROPHILS # (AUTO) 0.6 K/uL (1.8-8.9)
[2019-11-15 06:23] LABS: BASOPHILS % (AUTO) 0.5 % (0.0-2.0); MEAN CORPUSCULAR HEMOGLOBIN 36.8 uug (23.8-33.4); MEAN CORPUSCULAR HGB CONC 35 g/dL (32.5-36.3); MEAN CORPUSCULAR VOLUME 104.6 fL (73.0-96.2); NEUTROPHILS % (AUTO) 49.1 % (38.5-71.5); PLATELET COUNT (AUTO) 491 K/uL (152-348)
[2019-11-15 06:28] LABS: MAGNESIUM 1.8 mg/dL (1.8-2.4); PHOSPHOROUS 3.2 mg/dL (2.5-4.9); POTASSIUM 3.8 mmol/L (3.5-5.1)
[2019-11-15 06:41] LABS: RED BLOOD CELL COUNT(AUTO) 1.84 MIL/uL (4.06-5.63)
[2019-11-15 06:45] LABS: HEMATOCRIT 19.2 % (36.7-47.1); HEMOGLOBIN 6.8 g/dL (12.5-16.3); WHITE BLOOD COUNT (AUTO) 1.2 K/uL (3.6-10.2)
--- NOTE | 2019-11-15 06:56 | NUR ---
PATIENT WBC 1.2, HGH 6.8, HCT 19.2 NOTIFY LAM NOWAK AWAITING FOR RESPONSE. ENDORSED TO NEXT SHIFT.
[2019-11-15] MEDS: MERCAPTOPURINE 50 MG PO SCH (08:33)
[2019-11-15] MEDS: LEVOTHYROXINE SODIUM 100 MCG TABLET PO SCH (08:33)
[2019-11-15] MEDS: ACYCLOVIR 200 MG CAPSULE PO SCH ×2 (08:33→20:26)
[2019-11-15] MEDS: FLUDROCORTISONE ACETATE 0.1 MG TABLET PO SCH (08:33)
[2019-11-15] MEDS: ALLOPURINOL 100 MG TABLET PO SCH (08:34)
[2019-11-15] MEDS: CLOTRIMAZOLE 1% CREAM 30 GM TUBE TP SCH ×2 (08:39→17:27)
[2019-11-15] MEDS: SODIUM HYPOCHLORITE 0.125% 473 ML BOTTLE TP SCH (08:39)
[2019-11-15] MEDS: THERAHONEY GEL 1.5 OZ TUBE TOP SCH (08:39)
[2019-11-15 11:19] VITALS: BP 130/75
[2019-11-15] MEDS: VANCOMYCIN IV 1,000 MG in IV DEXTROSE 5% 250 ML IV SCH (11:22)
--- NOTE | 2019-11-15 13:08 | NUR ---
Clinical Pharmacy Note: Vancomycin Dosing per Pharmacy Subjective: Vancomycin IV to continue on this 79 yo male patient for empiric tx (ID note:continue empiric tx ,waiting for final BC). Objective: BUN 20/Scr 1.0 WBC 1.2 Temperature 98.4 Assessment/Plan: Will continue vancomycin 1000mg IVPB Q22hr for a predicted vancomycin steady state trough level of 15 mcg/ml. 3rd dose today at 1200. Will draw a vancomycin trough level prior to the 4th dose of vancomycin (ordered for tomorrow at 0930). Will monitor renal function and adjust vancomycin dose, if needed, should renal function change significantly. Will follow daily.
[2019-11-15 15:07] VITALS: BP 130/73
[2019-11-15] MEDS: FLUCONAZOLE 100 MG TABLET PO SCH (16:52)
--- NOTE | 2019-11-15 18:42 | NUR ---
PATIENT IN BED WITH NO C/O PAIN AND NO SOB AT THIS TIME, PATIENT ALERT A DN ORIENTED. ABLE TO MAKE NEED KNOWN CONTINUE TO MONITOR. BED IN LOW POSITION AND SIDE RAILS UP. KEPT CLEAN AND DRY AT ALL TIMES. CALL LIGHT WITHIN REACH. WILL CONTINUE TO MONITOR.
[2019-11-15 20:20] VITALS: BP 182/67
[2019-11-15] MEDS: ATORVASTATIN 40 MG TABLET PO SCH (20:26)
--- NOTE | 2019-11-15 20:51 | NUR ---
DR TRIPP CAME AND SEE THE PATIENT. DR TRIPP SPOKE TO PATIENT AND EXPLAINED THAT SHE CANNOT RELEASE THE PATIENT BECAUSE DR TRIPP WAITING FOR PATHOLOGY RESULT. DR. TRIPP EXPLAINED TO PATIENT THAT HE PROBABLY NEEDS CHEMO, AND MD PREFERRED [facility] IF PATIENT DOING CHEMO. PATIENT AGREED AND UNDERSTAND PATIENT EXPLANATIONS.
[2019-11-15] MEDS ORDERED: ACETAMINOPHEN 325 MG TABLET PO ONE (21:00)
[2019-11-15] MEDS ORDERED: diphenhydrAMINE 50 MG/1 ML VIAL IV ONE (21:00)
[2019-11-15 23:42] VITALS: BP 167/75
[2019-11-15 23:43] VITALS: BP 167/75
[2019-11-16] VITALS (10 sets, daily range): BP systolic 133–185; BP diastolic 65–84
--- NOTE | 2019-11-16 00:13 | NUR ---
OBTAIN PRBC BUT UNABLE TO TRANSFUSED DUE BLOOD PRODUCT UNABLE TO SCAN. REORDER TYPE AND SCREEN AGAIN.
--- NOTE | 2019-11-16 00:23 | NUR ---
PATIENT STATED THAT HE CHANGED HIS MIND, AND DOESNT WANT TO GO TO [place] FOR CHEMO IF HE EVER HAVE TO GO. PATIENT PREFERRED [facility] CLOSED TO HIS HOME. WILL ENDORSE IN AM.
--- NOTE | 2019-11-16 01:43 | NUR ---
STARTED BLOOD TRANSFUSION, PATIENT HAS NO COMPLAIN OF SOB NO ITCHING NOTED AT THIS TIME. V.S STABLE. CONT TO MONITOR.
--- NOTE | 2019-11-16 02:08 | NUR ---
V/S BP 159/65 , TEMP 98.3, RR 20, HR 104 PATIENT ALERT ORIENTED, NO S/S OF ADVERSE REACTION NOTED, CONT TO MONITOR.
--- NOTE | 2019-11-16 03:48 | NUR ---
TRANSFUSED 1 UNIT PRBC TOLERATE WELL, NO S/S OF ADVERSE REACTION NOTED. PATIENT HAS NO SOB NO CHEST PAIN, CONT TO MONITOR.
[2019-11-16] MEDS: MEROPENEM 0.5 G in IV NORMAL SALINE 50 ML IV SCH ×2 (04:52→11:13)
[2019-11-16 07:04] LABS: BASOPHILS % (AUTO) 0.5 % (0.0-2.0); EOSINOPHILS # (AUTO) 0.6 K/uL (0.0-0.7); HEMATOCRIT 23.3 % (36.7-47.1); HEMOGLOBIN 8.2 g/dL (12.5-16.3); LYMPHOCYTES # (AUTO) 0.1 K/uL (20.0-40.0); LYMPHOCYTES % (AUTO) 6.8 % (20.5-51.5); MEAN CORPUSCULAR HEMOGLOBIN 36.1 uug (23.8-33.4); MEAN CORPUSCULAR HGB CONC 35 g/dL (32.5-36.3); MEAN CORPUSCULAR VOLUME 102.9 fL (73.0-96.2); NEUTROPHILS # (AUTO) 0.7 K/uL (1.8-8.9); NEUTROPHILS % (AUTO) 48.5 % (38.5-71.5); PLATELET COUNT (AUTO) 496 K/uL (152-348)
[2019-11-16 07:15] LABS: RED BLOOD CELL COUNT(AUTO) 2.27 MIL/uL (4.06-5.63); WHITE BLOOD COUNT (AUTO) 1.4 K/uL (3.6-10.2)
[2019-11-16 07:16] LABS: EOSINOPHILS % (AUTO) 43.2 % (0.0-7.0)
[2019-11-16 07:20] LABS: CREATININE 0.9 mg/dL (0.6-1.3); MAGNESIUM 1.8 mg/dL (1.8-2.4); POTASSIUM 3.9 mmol/L (3.5-5.1)
[2019-11-16] MEDS: FLUDROCORTISONE ACETATE 0.1 MG TABLET PO SCH (08:12)
[2019-11-16] MEDS: ACYCLOVIR 200 MG CAPSULE PO SCH ×2 (08:12→20:16)
[2019-11-16] MEDS: ALLOPURINOL 100 MG TABLET PO SCH (08:12)
[2019-11-16] MEDS: LEVOTHYROXINE SODIUM 100 MCG TABLET PO SCH (08:12)
[2019-11-16] MEDS: THERAHONEY GEL 1.5 OZ TUBE TOP SCH (08:19)
[2019-11-16] MEDS: CLOTRIMAZOLE 1% CREAM 30 GM TUBE TP SCH ×2 (08:20→16:01)
[2019-11-16] MEDS: SODIUM HYPOCHLORITE 0.125% 473 ML BOTTLE TP SCH (08:20)
[2019-11-16] MEDS: MERCAPTOPURINE 50 MG PO SCH (08:23)
[2019-11-16 09:51] LABS: BAND % (MANUAL) 2 % (0-10); LYMPHOCYTES % (MANUAL) 7 % (20-40); NEUTROPHILS % (MANUAL) 48 % (42-75)
[2019-11-16 09:52] LABS: EOSINOPHILS % (MANUAL) 41 % (0-8); MONOCYTES % (MANUAL) 2 % (2-10)
[2019-11-16] MEDS ORDERED: VANCOMYCIN IV 1,000 MG in IV DEXTROSE 5% 250 ML IV SCH (11:30)
--- NOTE | 2019-11-16 11:32 | NUR ---
Clinical Pharmacy Note: Vancomycin Dosing per Pharmacy Subjective: Vancomycin IV to continue on this 79 yo male patient for empiric tx (ID note:continue empiric tx ,waiting for final BC). Objective: BUN 13/Scr 0.9 WBC 1.4 Temperature 98.8 Trough today at 0930: 10.7 Assessment/Plan: Based on today's trough, will adjust vanco regimen to 1gm q18hr for new estimated trough of 15. First dose today at 1130. Will order trough before 4th scheduled dose (not ordered yet). Will continue to follow and adjust as needed
[2019-11-16] MEDS: DILTIAZEM HCL CD 240 MG CAP.SR.24H PO SCH (12:18)
[2019-11-16] MEDS: FLUCONAZOLE 100 MG TABLET PO SCH (15:46)
--- NOTE | 2019-11-16 19:44 | NUR ---
Received patient awake and alert. Patient shows no signs or symptoms of distress at this time. Patient resting comfortably in bed. Bed set to lowest position. Call light within reach. Will continue to monitor patient.
[2019-11-16] MEDS: ATORVASTATIN 40 MG TABLET PO SCH (20:16)
[2019-11-17] MEDS: ACETAMINOPHEN 325 MG TABLET PO PRN (02:28)
[2019-11-17 04:15] VITALS: BP 124/62
[2019-11-17 04:17] VITALS: BP 152/71
[2019-11-17 06:49] LABS: BASOPHILS % (AUTO) 0.2 % (0.0-2.0); EOSINOPHILS # (AUTO) 0.6 K/uL (0.0-0.7); HEMATOCRIT 23.6 % (36.7-47.1); HEMOGLOBIN 8.3 g/dL (12.5-16.3); LYMPHOCYTES # (AUTO) 0.1 K/uL (20.0-40.0); LYMPHOCYTES % (AUTO) 6.9 % (20.5-51.5); MEAN CORPUSCULAR HGB CONC 35 g/dL (32.5-36.3); MEAN CORPUSCULAR VOLUME 102.9 fL (73.0-96.2); MONOCYTES % (AUTO) 1.1 % (0.0-11.0); NEUTROPHILS # (AUTO) 0.7 K/uL (1.8-8.9); NEUTROPHILS % (AUTO) 48.9 % (38.5-71.5); PLATELET COUNT (AUTO) 393 K/uL (152-348)
[2019-11-17 06:55] LABS: EOSINOPHILS % (AUTO) 42.9 % (0.0-7.0); RED BLOOD CELL COUNT(AUTO) 2.29 MIL/uL (4.06-5.63)
[2019-11-17 06:56] LABS: WHITE BLOOD COUNT (AUTO) 1.5 K/uL (3.6-10.2)
[2019-11-17 07:12] LABS: EOSINOPHILS % (MANUAL) 39 % (0-8); LYMPHOCYTES % (MANUAL) 10 % (20-40); MONOCYTES % (MANUAL) 4 % (2-10); NEUTROPHILS % (MANUAL) 47 % (42-75)
--- NOTE | 2019-11-17 07:15 | NUR ---
Patient shows no signs or symptoms of distress at this time. Denies having any pain. Patient endorsed to day shift nurse in stable condition.
[2019-11-17] MEDS: MERCAPTOPURINE 50 MG PO SCH (08:18)
[2019-11-17] MEDS: DILTIAZEM HCL CD 240 MG CAP.SR.24H PO SCH (08:19)
[2019-11-17] MEDS: ALLOPURINOL 100 MG TABLET PO SCH (08:19)
[2019-11-17] MEDS: ACYCLOVIR 200 MG CAPSULE PO SCH (08:19)
[2019-11-17] MEDS: FLUDROCORTISONE ACETATE 0.1 MG TABLET PO SCH (08:19)
[2019-11-17] MEDS: LEVOTHYROXINE SODIUM 100 MCG TABLET PO SCH (08:19)
[2019-11-17] MEDS: THERAHONEY GEL 1.5 OZ TUBE TOP SCH (08:20)
[2019-11-17] MEDS: SODIUM HYPOCHLORITE 0.125% 473 ML BOTTLE TP SCH (08:21)
[2019-11-17] MEDS: CLOTRIMAZOLE 1% CREAM 30 GM TUBE TP SCH (08:21)
[2019-11-17 10:28] VITALS: BP 104/71
--- NOTE | 2019-11-17 12:49 | NUR ---
pt refused to take the wound picture on discharge ,he said he do not want to open his dressing md made aware
--- NOTE | 2019-11-17 13:03 | NUR ---
dc orders received noted and carried out,dc instruction and education given to the pt,tramaine benito per md orders .pt left the facility via private car in stable condition
== END 2019-11-17 13:07 | disposition home health service (06) | DRG 808 ==
LOC: TELE3 18:15 → MEDSURG3 11-11 12:06
PROVIDERS: ADMIT Internal Medicine; ATTEND Internal Medicine
PROC: 07DR3ZX Extraction of Iliac Bone Marrow, Percutaneous Approach, Diagnostic (ICD-10-PCS; principal; 2019-11-10)
PROC: 30233N1 Transfusion of Nonautologous Red Blood Cells into Peripheral Vein, Percutaneous Approach (ICD-10-PCS; 2019-11-15)
DX: D61.818 Other pancytopenia (principal); A41.9 Sepsis, unspecified organism; E43 Unspecified severe protein-calorie malnutrition; G92 Toxic encephalopathy; L03.114 Cellulitis of left upper limb; L03.113 Cellulitis of right upper limb; D68.59 Other primary thrombophilia; K51.90 Ulcerative colitis, unspecified, without complications; M62.82 Rhabdomyolysis; G91.2 (Idiopathic) normal pressure hydrocephalus; E87.2 Acidosis; D46.9 Myelodysplastic syndrome, unspecified; Z74.09 Other reduced mobility; E89.0 Postprocedural hypothyroidism; Z79.890 Hormone replacement therapy; Z85.850 Personal history of malignant neoplasm of thyroid; Z85.118 Personal history of other malignant neoplasm of bronchus and lung; D75.89 Other specified diseases of blood and blood-forming organs; Z79.52 Long term (current) use of systemic steroids; Z86.73 Personal history of transient ischemic attack (TIA), and cerebral infarction without residual deficits; K44.9 Diaphragmatic hernia without obstruction or gangrene; K76.0 Fatty (change of) liver, not elsewhere classified; N28.1 Cyst of kidney, acquired; I10 Essential (primary) hypertension; F03.90 Unspecified dementia, unspecified severity, without behavioral disturbance, psychotic disturbance, mood disturbance, and anxiety; J43.2 Centrilobular emphysema; I95.1 Orthostatic hypotension
CPT/HCPCS: 36415; 70030-TC; 70450; 71045; 83605; 83735; 84100; 84443; 84550; 85025; 85610; 85730; 86850; 86900; 86901; 86920; 87040; 87086; 93880; G0378; J0692; J1200; J2185; J2270; J2405; J3370; J3475; J3490; J7030; J7050; J7060; J8499; P9016-BL; P9021

== ENCOUNTER 2019-11-17 19:40 | Inpatient (IN) | payer MEDICARE ==
[~2019-11-17] VITALS: Ht 175.3 cm; Wt 68.0 kg
[2019-11-17] MEDS ORDERED: IV NORMAL SALINE 1000 ML BAG IV ONE (20:00)
[2019-11-17 20:11] LABS: BASOPHILS % (AUTO) 0.2 % (0.0-2.0); EOSINOPHILS # (AUTO) 0.6 K/uL (0.0-0.7); HEMATOCRIT 23.5 % (36.7-47.1); HEMOGLOBIN 8.2 g/dL (12.5-16.3); LYMPHOCYTES # (AUTO) 0.1 K/uL (20.0-40.0); LYMPHOCYTES % (AUTO) 3.9 % (20.5-51.5); MEAN CORPUSCULAR HEMOGLOBIN 35.7 uug (23.8-33.4); MEAN CORPUSCULAR HGB CONC 35 g/dL (32.5-36.3); MEAN CORPUSCULAR VOLUME 102.8 fL (73.0-96.2); MONOCYTES % (AUTO) 0.9 % (0.0-11.0); NEUTROPHILS # (AUTO) 0.9 K/uL (1.8-8.9); NEUTROPHILS % (AUTO) 58.3 % (38.5-71.5); PLATELET COUNT (AUTO) 355 K/uL (152-348)
[2019-11-17 20:20] LABS: POTASSIUM 4.1 mmol/L (3.5-5.1)
[2019-11-17 20:23] LABS: EOSINOPHILS % (AUTO) 36.7 % (0.0-7.0); RED BLOOD CELL COUNT(AUTO) 2.28 MIL/uL (4.06-5.63); WHITE BLOOD COUNT (AUTO) 1.6 K/uL (3.6-10.2)
[2019-11-17 20:26] LABS: BILIRUBIN,DIRECT 0.2 mg/dL (0.0-0.2); BILIRUBIN,TOTAL 0.7 mg/dL (0.2-1.0); TOTAL PROTEIN, SERUM 6.2 g/dL (6.4-8.2)
[2019-11-17] MEDS ORDERED: CLOTRIMAZOLE 1% CREAM 30 GM TUBE TP PRN (21:00)
[2019-11-17] MEDS ORDERED: ACETAMINOPHEN 325 MG TABLET PO PRN (21:00)
[2019-11-17] MEDS ORDERED: TEMAZEPAM 7.5 MG CAPSULE PO PRN (21:00)
[2019-11-17 21:10] LABS: BAND % (MANUAL) 17 % (0-10); LYMPHOCYTES % (MANUAL) 4 % (20-40); MONOCYTES % (MANUAL) 1 % (2-10); NEUTROPHILS % (MANUAL) 50 % (42-75)
[2019-11-17 21:11] LABS: EOSINOPHILS % (MANUAL) 28 % (0-8)
[2019-11-17] MEDS ORDERED: ONDANSETRON 4 MG/2 ML VIAL IV PRN (21:15)
[2019-11-17] MEDS ORDERED: Z GUARD REMEDY PASTE 57 GM TUBE TOP PRN (21:15)
[2019-11-17] MEDS ORDERED: HYDROCODONE/APAP 5-325MG TABLET PO PRN (21:15)
[2019-11-17 22:05] VITALS: BP 123/77
[2019-11-17] MEDS: IV NS 1000 ML 1,000 ML IV PRN (23:23)
[2019-11-17] MEDS: ATORVASTATIN 40 MG TABLET PO SCH (23:26)
[2019-11-17 23:51] VITALS: BP 153/70
[2019-11-18 04:03] VITALS: BP 154/64
[2019-11-18] MEDS: LEVOTHYROXINE SODIUM 100 MCG TABLET PO SCH (06:01)
[2019-11-18 08:57] LABS: BASOPHILS % (AUTO) 0.2 % (0.0-2.0); EOSINOPHILS # (AUTO) 0.7 K/uL (0.0-0.7); HEMATOCRIT 22.1 % (36.7-47.1); HEMOGLOBIN 7.6 g/dL (12.5-16.3); LYMPHOCYTES # (AUTO) 0.1 K/uL (20.0-40.0); LYMPHOCYTES % (AUTO) 5.8 % (20.5-51.5); MEAN CORPUSCULAR HEMOGLOBIN 35.5 uug (23.8-33.4); MEAN CORPUSCULAR HGB CONC 35 g/dL (32.5-36.3); MEAN CORPUSCULAR VOLUME 102.9 fL (73.0-96.2); MONOCYTES % (AUTO) 0.8 % (0.0-11.0); NEUTROPHILS # (AUTO) 0.8 K/uL (1.8-8.9); NEUTROPHILS % (AUTO) 51.5 % (38.5-71.5); PLATELET COUNT (AUTO) 306 K/uL (152-348)
[2019-11-18 09:00] LABS: EOSINOPHILS % (AUTO) 41.7 % (0.0-7.0); RED BLOOD CELL COUNT(AUTO) 2.14 MIL/uL (4.06-5.63)
[2019-11-18] MEDS ORDERED: AMLODIPINE 5 MG TABLET PO SCH (09:00)
[2019-11-18] MEDS ORDERED: ASPIRIN EC 81 MG TABLET.DR PO SCH (09:00)
[2019-11-18 09:03] LABS: WHITE BLOOD COUNT (AUTO) 1.6 K/uL (3.6-10.2)
[2019-11-18 09:04] LABS: CREATININE 0.9 mg/dL (0.6-1.3); MAGNESIUM 1.6 mg/dL (1.8-2.4); PHOSPHOROUS 3.4 mg/dL (2.5-4.9); POTASSIUM 3.7 mmol/L (3.5-5.1)
[2019-11-18] MEDS: CLOTRIMAZOLE 1% CREAM 30 GM TUBE TP SCH ×2 (09:42→17:16)
[2019-11-18] MEDS: ALLOPURINOL 100 MG TABLET PO SCH (09:43)
[2019-11-18 10:34] LABS: BAND % (MANUAL) 4 % (0-10); EOSINOPHILS % (MANUAL) 46 % (0-8); LYMPHOCYTES % (MANUAL) 6 % (20-40); NEUTROPHILS % (MANUAL) 44 % (42-75)
[2019-11-18 11:10] VITALS: BP 157/56
[2019-11-18] MEDS: IV NS 1000 ML 1,000 ML IV PRN (12:13)
[2019-11-18] MEDS ORDERED: FLUDROCORTISONE ACETATE 0.1 MG TABLET PO SCH ×2 (12:15→12:45)
[2019-11-18] MEDS ORDERED: DILTIAZEM HCL CD 240 MG CAP.SR.24H PO SCH (12:15)
[2019-11-18 15:04] VITALS: BP 121/66
[2019-11-18] MEDS: HYDROCORTISONE SOD SUCCINATE 100 MG/2 ML VIAL IV SCH ×2 (15:44→22:00)
[2019-11-18] MEDS: ACYCLOVIR 200 MG CAPSULE PO SCH ×3 (15:45→20:57)
[2019-11-18] MEDS: LEVOFLOXACIN 250 MG TABLET PO SCH (17:14)
[2019-11-18] MEDS: FLUCONAZOLE 200 MG TABLET PO SCH (17:17)
[2019-11-18 17:19] LABS: *BILIRUBIN,URIN NEGATIVE (NEGATIVE); *BLOOD, URINE NEGATIVE (NEGATIVE); *CLARITY,URINE CLEAR (CLEAR); *COLOR,URINE YELLOW (YELLOW); *KETONES,URINE NEGATIVE (NEGATIVE); *UROBILINOGEN,URINE 0.2 E.U./dl (NORMAL); LEUKOCYTE ESTERASE ,URINE NEGATIVE (NEGATIVE); NITRITE, URINE NEGATIVE (NEGATIVE); UGLUCOSE NEGATIVE (NEGATIVE)
[2019-11-18 17:42] LABS: MUCUS,URINE FEW /LPF (0-FEW); WBC,URINE 0-3 /HPF (0-3)
[2019-11-18 20:05] VITALS: BP 143/68
[2019-11-18] MEDS: ATORVASTATIN 40 MG TABLET PO SCH (20:57)
[2019-11-19] VITALS (11 sets, daily range): BP systolic 117–145; BP diastolic 66–81
[2019-11-19] MEDS: IV NS 1000 ML 1,000 ML IV PRN (02:17)
[2019-11-19] MEDS: LEVOTHYROXINE SODIUM 100 MCG TABLET PO SCH (06:00)
[2019-11-19] MEDS: HYDROCORTISONE SOD SUCCINATE 100 MG/2 ML VIAL IV SCH ×3 (06:00→23:45)
[2019-11-19] MEDS: ACYCLOVIR 200 MG CAPSULE PO SCH ×5 (06:00→20:29)
[2019-11-19 06:30] LABS: NEUTROPHILS # (AUTO) 0.8 K/uL (1.8-8.9)
[2019-11-19 06:33] LABS: BASOPHILS % (AUTO) 0.1 % (0.0-2.0); EOSINOPHILS % (AUTO) 1.6 % (0.0-7.0); LYMPHOCYTES % (AUTO) 4.6 % (20.5-51.5); MEAN CORPUSCULAR HEMOGLOBIN 35.7 uug (23.8-33.4); MEAN CORPUSCULAR HGB CONC 35 g/dL (32.5-36.3); MEAN CORPUSCULAR VOLUME 102.2 fL (73.0-96.2); NEUTROPHILS % (AUTO) 92.7 % (38.5-71.5); PLATELET COUNT (AUTO) 238 K/uL (152-348)
[2019-11-19 06:43] LABS: HEMATOCRIT 20.2 % (36.7-47.1); RED BLOOD CELL COUNT(AUTO) 1.98 MIL/uL (4.06-5.63); WHITE BLOOD COUNT (AUTO) 0.9 K/uL (3.6-10.2)
[2019-11-19 06:46] LABS: CREATINE KINASE, TOTAL 19 U/L (39-308); LACTATE DEHYDROGENASE 158 U/L (85-227)
[2019-11-19 06:48] LABS: BILIRUBIN,TOTAL 0.5 mg/dL (0.2-1.0); CREATININE 0.8 mg/dL (0.6-1.3); MAGNESIUM 1.6 mg/dL (1.8-2.4); PHOSPHOROUS 3.4 mg/dL (2.5-4.9); POTASSIUM 3.7 mmol/L (3.5-5.1); TOTAL PROTEIN, SERUM 5.4 g/dL (6.4-8.2)
[2019-11-19] MEDS: CLOTRIMAZOLE 1% CREAM 30 GM TUBE TP SCH ×2 (09:00→17:00)
[2019-11-19] MEDS: FLUCONAZOLE 200 MG TABLET PO SCH (09:49)
[2019-11-19] MEDS: ALLOPURINOL 100 MG TABLET PO SCH (09:51)
[2019-11-19] MEDS: MAGNESIUM SULFATE/D5W 100 ML IV SCH ×2 (14:20→15:24)
[2019-11-19 15:57] LABS: BAND % (MANUAL) 26 % (0-10); EOSINOPHILS % (MANUAL) 1 % (0-8); LYMPHOCYTES % (MANUAL) 3 % (20-40); MONOCYTES % (MANUAL) 1 % (2-10); NEUTROPHILS % (MANUAL) 69 % (42-75)
[2019-11-19] MEDS ORDERED: ACETAMINOPHEN 325 MG TABLET PO ONE (16:30)
[2019-11-19] MEDS ORDERED: diphenhydrAMINE 50 MG/1 ML VIAL IV ONE (16:30)
[2019-11-19] MEDS: LEVOFLOXACIN 250 MG TABLET PO SCH (17:37)
[2019-11-19] MEDS: ATORVASTATIN 40 MG TABLET PO SCH (20:27)
[2019-11-19] MEDS ORDERED: diphenhydrAMINE 50 MG/1 ML VIAL IV PRN (20:45)
[2019-11-19] MEDS: TEMAZEPAM 15 MG CAPSULE PO PRN (21:25)
[2019-11-20 05:14] VITALS: BP 141/75
[2019-11-20] MEDS: ACYCLOVIR 200 MG CAPSULE PO SCH ×5 (06:15→21:04)
[2019-11-20] MEDS: HYDROCORTISONE SOD SUCCINATE 100 MG/2 ML VIAL IV SCH ×3 (06:16→21:04)
[2019-11-20] MEDS: LEVOTHYROXINE SODIUM 100 MCG TABLET PO SCH (06:16)
[2019-11-20 06:38] LABS: BASOPHILS % (AUTO) 0.1 % (0.0-2.0); EOSINOPHILS % (AUTO) 0.7 % (0.0-7.0); HEMATOCRIT 25.6 % (36.7-47.1); HEMOGLOBIN 8.9 g/dL (12.5-16.3); LYMPHOCYTES # (AUTO) 0.1 K/uL (20.0-40.0); LYMPHOCYTES % (AUTO) 3.1 % (20.5-51.5); MEAN CORPUSCULAR HGB CONC 35 g/dL (32.5-36.3); MEAN CORPUSCULAR VOLUME 100.9 fL (73.0-96.2); NEUTROPHILS # (AUTO) 1.7 K/uL (1.8-8.9); NEUTROPHILS % (AUTO) 95.1 % (38.5-71.5); PLATELET COUNT (AUTO) 196 K/uL (152-348); RED BLOOD CELL COUNT(AUTO) 2.54 MIL/uL (4.06-5.63)
[2019-11-20 06:44] LABS: WHITE BLOOD COUNT (AUTO) 1.8 K/uL (3.6-10.2)
[2019-11-20 06:51] LABS: BILIRUBIN,TOTAL 0.7 mg/dL (0.2-1.0); CREATININE 1.1 mg/dL (0.6-1.3); MAGNESIUM 2.1 mg/dL (1.8-2.4); PHOSPHOROUS 3.1 mg/dL (2.5-4.9); POTASSIUM 3.3 mmol/L (3.5-5.1); TOTAL PROTEIN, SERUM 5.7 g/dL (6.4-8.2)
[2019-11-20 07:51] LABS: BAND % (MANUAL) 24 % (0-10); EOSINOPHILS % (MANUAL) 1 % (0-8); LYMPHOCYTES % (MANUAL) 3 % (20-40); MONOCYTES % (MANUAL) 1 % (2-10); NEUTROPHILS % (MANUAL) 71 % (42-75)
[2019-11-20 08:00] VITALS: BP 133/78
[2019-11-20] MEDS: ALLOPURINOL 100 MG TABLET PO SCH (08:33)
[2019-11-20] MEDS: FLUCONAZOLE 200 MG TABLET PO SCH (08:33)
[2019-11-20] MEDS: CLOTRIMAZOLE 1% CREAM 30 GM TUBE TP SCH ×2 (08:34→17:00)
[2019-11-20] MEDS: IV NS 1000 ML 1,000 ML IV PRN (11:40)
[2019-11-20] MEDS ORDERED: POTASSIUM CHLORIDE 20 MEQ TAB.PRT.SR PO ONE (12:45)
[2019-11-20 13:00] VITALS: BP 132/70
[2019-11-20] MEDS: LEVOFLOXACIN 250 MG TABLET PO SCH (15:48)
[2019-11-20 16:58] VITALS: BP 138/78
[2019-11-20 19:30] VITALS: BP 153/87
[2019-11-20] MEDS: TEMAZEPAM 15 MG CAPSULE PO PRN (21:04)
[2019-11-20] MEDS: ATORVASTATIN 40 MG TABLET PO SCH (21:04)
[2019-11-21] MEDS: IV NS 1000 ML 1,000 ML IV PRN ×2 (03:12→22:12)
[2019-11-21 05:06] VITALS: BP 154/85
[2019-11-21] MEDS: ACYCLOVIR 200 MG CAPSULE PO SCH ×5 (06:12→21:01)
[2019-11-21] MEDS: HYDROCORTISONE SOD SUCCINATE 100 MG/2 ML VIAL IV SCH ×3 (06:12→21:02)
[2019-11-21] MEDS: LEVOTHYROXINE SODIUM 100 MCG TABLET PO SCH (06:12)
[2019-11-21 07:25] LABS: EOSINOPHILS % (AUTO) 0.5 % (0.0-7.0); HEMATOCRIT 23.8 % (36.7-47.1); LYMPHOCYTES # (AUTO) 0.1 K/uL (20.0-40.0); MONOCYTES % (AUTO) 1.1 % (0.0-11.0); NEUTROPHILS # (AUTO) 1.8 K/uL (1.8-8.9)
[2019-11-21 07:38] LABS: BILIRUBIN,TOTAL 0.6 mg/dL (0.2-1.0); MAGNESIUM 1.7 mg/dL (1.8-2.4); PHOSPHOROUS 3.2 mg/dL (2.5-4.9); POTASSIUM 3.3 mmol/L (3.5-5.1); TOTAL PROTEIN, SERUM 5.4 g/dL (6.4-8.2)
[2019-11-21 07:41] LABS: BASOPHILS % (AUTO) 0.2 % (0.0-2.0); HEMOGLOBIN 8.4 g/dL (12.5-16.3); LYMPHOCYTES % (AUTO) 3.4 % (20.5-51.5); MEAN CORPUSCULAR HEMOGLOBIN 35.1 uug (23.8-33.4); MEAN CORPUSCULAR HGB CONC 35 g/dL (32.5-36.3); NEUTROPHILS % (AUTO) 94.8 % (38.5-71.5); RED BLOOD CELL COUNT(AUTO) 2.38 MIL/uL (4.06-5.63)
[2019-11-21 07:46] LABS: PLATELET COUNT (AUTO) 128 K/uL (152-348); WHITE BLOOD COUNT (AUTO) 1.9 K/uL (3.6-10.2)
[2019-11-21] MEDS: FLUCONAZOLE 200 MG TABLET PO SCH (08:25)
[2019-11-21] MEDS: ALLOPURINOL 100 MG TABLET PO SCH (08:25)
[2019-11-21] MEDS: CLOTRIMAZOLE 1% CREAM 30 GM TUBE TP SCH ×2 (08:28→15:51)
[2019-11-21 08:31] VITALS: BP 160/85
[2019-11-21 08:51] LABS: BAND % (MANUAL) 14 % (0-10); EOSINOPHILS % (MANUAL) 1 % (0-8); LYMPHOCYTES % (MANUAL) 4 % (20-40); MONOCYTES % (MANUAL) 4 % (2-10); NEUTROPHILS % (MANUAL) 77 % (42-75)
[2019-11-21 11:45] VITALS: BP 150/81
[2019-11-21 14:13] VITALS: BP 139/81
[2019-11-21] MEDS ORDERED: POTASSIUM CHLORIDE 20 MEQ TAB.PRT.SR PO ONE (15:30)
[2019-11-21] MEDS: LEVOFLOXACIN 250 MG TABLET PO SCH (15:45)
[2019-11-21] MEDS: MAGNESIUM SULFATE/D5W 100 ML IV SCH ×2 (15:46→17:04)
[2019-11-21 16:49] VITALS: BP 150/81
[2019-11-21 20:12] VITALS: BP 154/81
[2019-11-21] MEDS: TEMAZEPAM 15 MG CAPSULE PO PRN (21:01)
[2019-11-21] MEDS: ATORVASTATIN 40 MG TABLET PO SCH (21:01)
[2019-11-22] MEDS: HYDROCORTISONE SOD SUCCINATE 100 MG/2 ML VIAL IV SCH ×3 (06:31→21:04)
[2019-11-22] MEDS: LEVOTHYROXINE SODIUM 100 MCG TABLET PO SCH (06:31)
[2019-11-22] MEDS: ACYCLOVIR 200 MG CAPSULE PO SCH ×5 (06:31→21:04)
[2019-11-22 06:49] VITALS: BP 136/78
[2019-11-22 07:16] LABS: BASOPHILS % (AUTO) 0.2 % (0.0-2.0); EOSINOPHILS % (AUTO) 1.4 % (0.0-7.0); HEMATOCRIT 24.5 % (36.7-47.1); HEMOGLOBIN 8.6 g/dL (12.5-16.3); LYMPHOCYTES # (AUTO) 0.1 K/uL (20.0-40.0); LYMPHOCYTES % (AUTO) 4.2 % (20.5-51.5); MEAN CORPUSCULAR HEMOGLOBIN 34.5 uug (23.8-33.4); MEAN CORPUSCULAR HGB CONC 35 g/dL (32.5-36.3); MEAN CORPUSCULAR VOLUME 98.8 fL (73.0-96.2); MONOCYTES % (AUTO) 2.6 % (0.0-11.0); NEUTROPHILS # (AUTO) 1.5 K/uL (1.8-8.9); NEUTROPHILS % (AUTO) 91.6 % (38.5-71.5); PLATELET COUNT (AUTO) 79 K/uL (152-348)
[2019-11-22 07:24] LABS: BILIRUBIN,TOTAL 0.8 mg/dL (0.2-1.0); CREATININE 0.9 mg/dL (0.6-1.3); PHOSPHOROUS 3.2 mg/dL (2.5-4.9); TOTAL PROTEIN, SERUM 5.2 g/dL (6.4-8.2)
[2019-11-22 07:30] LABS: RED BLOOD CELL COUNT(AUTO) 2.48 MIL/uL (4.06-5.63)
[2019-11-22 07:31] LABS: WHITE BLOOD COUNT (AUTO) 1.7 K/uL (3.6-10.2)
[2019-11-22 08:02] LABS: BAND % (MANUAL) 1 % (0-10); LYMPHOCYTES % (MANUAL) 4 % (20-40); MONOCYTES % (MANUAL) 2 % (2-10); NEUTROPHILS % (MANUAL) 93 % (42-75)
[2019-11-22] MEDS: FLUCONAZOLE 200 MG TABLET PO SCH (08:24)
[2019-11-22] MEDS: ALLOPURINOL 100 MG TABLET PO SCH (08:24)
[2019-11-22] MEDS: CLOTRIMAZOLE 1% CREAM 30 GM TUBE TP SCH ×2 (08:45→17:12)
[2019-11-22] MEDS: IV NS 1000 ML 1,000 ML IV PRN (10:47)
[2019-11-22 11:24] VITALS: BP 160/86
[2019-11-22] MEDS ORDERED: CLONIDINE HCL 0.1 MG TABLET PO PRN (12:30)
[2019-11-22] MEDS: POTASSIUM CHLORIDE 10 MEQ TAB.PRT.SR PO SCH ×2 (14:08→17:11)
[2019-11-22 15:23] VITALS: BP 145/85
[2019-11-22] MEDS: LEVOFLOXACIN 250 MG TABLET PO SCH (17:11)
[2019-11-22] MEDS: TEMAZEPAM 15 MG CAPSULE PO PRN (21:04)
[2019-11-22] MEDS: ATORVASTATIN 40 MG TABLET PO SCH (21:04)
[2019-11-22 21:06] VITALS: BP 158/84
[2019-11-23] MEDS: IV NS 1000 ML 1,000 ML IV PRN ×2 (00:23→12:45)
[2019-11-23 05:09] VITALS: BP 142/91
[2019-11-23 06:01] LABS: BASOPHILS % (AUTO) 0.1 % (0.0-2.0); EOSINOPHILS % (AUTO) 0.9 % (0.0-7.0); HEMATOCRIT 24.3 % (36.7-47.1); HEMOGLOBIN 8.4 g/dL (12.5-16.3); LYMPHOCYTES # (AUTO) 0.1 K/uL (20.0-40.0); LYMPHOCYTES % (AUTO) 6.7 % (20.5-51.5); MEAN CORPUSCULAR HEMOGLOBIN 34.3 uug (23.8-33.4); MEAN CORPUSCULAR HGB CONC 35 g/dL (32.5-36.3); MEAN CORPUSCULAR VOLUME 99.3 fL (73.0-96.2); MONOCYTES % (AUTO) 2.4 % (0.0-11.0); NEUTROPHILS # (AUTO) 1.2 K/uL (1.8-8.9); NEUTROPHILS % (AUTO) 89.9 % (38.5-71.5); PLATELET COUNT (AUTO) 66 K/uL (152-348)
[2019-11-23] MEDS: HYDROCORTISONE SOD SUCCINATE 100 MG/2 ML VIAL IV SCH ×3 (06:02→21:17)
[2019-11-23] MEDS: ACYCLOVIR 200 MG CAPSULE PO SCH ×4 (06:02→17:12)
[2019-11-23] MEDS: LEVOTHYROXINE SODIUM 100 MCG TABLET PO SCH (06:02)
[2019-11-23 06:13] LABS: BILIRUBIN,TOTAL 0.7 mg/dL (0.2-1.0); CREATININE 0.8 mg/dL (0.6-1.3); MAGNESIUM 1.8 mg/dL (1.8-2.4); PHOSPHOROUS 3.3 mg/dL (2.5-4.9)
[2019-11-23 06:22] LABS: RED BLOOD CELL COUNT(AUTO) 2.45 MIL/uL (4.06-5.63); WHITE BLOOD COUNT (AUTO) 1.4 K/uL (3.6-10.2)
[2019-11-23 07:08] LABS: BAND % (MANUAL) 11 % (0-10); EOSINOPHILS % (MANUAL) 3 % (0-8); LYMPHOCYTES % (MANUAL) 7 % (20-40); MONOCYTES % (MANUAL) 2 % (2-10); NEUTROPHILS % (MANUAL) 77 % (42-75)
[2019-11-23] MEDS: ALLOPURINOL 100 MG TABLET PO SCH (08:05)
[2019-11-23] MEDS: FLUCONAZOLE 200 MG TABLET PO SCH (08:05)
[2019-11-23] MEDS: CLOTRIMAZOLE 1% CREAM 30 GM TUBE TP SCH ×2 (08:34→16:09)
[2019-11-23] MEDS ORDERED: POTASSIUM CHLORIDE 20 MEQ TAB.PRT.SR PO ONE (10:30)
[2019-11-23 11:29] VITALS: BP 165/88
[2019-11-23] MEDS: LEVOFLOXACIN 250 MG TABLET PO SCH (15:41)
[2019-11-23] MEDS ORDERED: HYDROCORTISONE SOD SUCCINATE 100 MG/2 ML VIAL IV SCH (16:00)
[2019-11-23 16:26] VITALS: BP 164/86
[2019-11-23] MEDS ORDERED: ACYCLOVIR 200 MG CAPSULE PO SCH (18:15)
[2019-11-23 20:03] VITALS: BP 159/83
[2019-11-23] MEDS: TEMAZEPAM 15 MG CAPSULE PO PRN (21:01)
[2019-11-23] MEDS: METOPROLOL TARTRATE 25 MG TABLET PO SCH (21:01)
[2019-11-23] MEDS: ATORVASTATIN 40 MG TABLET PO SCH (21:01)
[2019-11-24] MEDS: IV NS 1000 ML 1,000 ML IV PRN ×2 (02:19→17:54)
[2019-11-24 04:04] VITALS: BP 161/85
[2019-11-24] MEDS: LEVOTHYROXINE SODIUM 100 MCG TABLET PO SCH (06:05)
[2019-11-24 06:13] LABS: BASOPHILS % (AUTO) 0.4 % (0.0-2.0); EOSINOPHILS % (AUTO) 1.1 % (0.0-7.0); HEMATOCRIT 24.7 % (36.7-47.1); HEMOGLOBIN 8.7 g/dL (12.5-16.3); LYMPHOCYTES # (AUTO) 0.2 K/uL (20.0-40.0); LYMPHOCYTES % (AUTO) 12.7 % (20.5-51.5); MEAN CORPUSCULAR HEMOGLOBIN 34.5 uug (23.8-33.4); MEAN CORPUSCULAR HGB CONC 35 g/dL (32.5-36.3); MEAN CORPUSCULAR VOLUME 98.2 fL (73.0-96.2); MONOCYTES % (AUTO) 3.8 % (0.0-11.0); PLATELET COUNT (AUTO) 65 K/uL (152-348); RED BLOOD CELL COUNT(AUTO) 2.52 MIL/uL (4.06-5.63)
[2019-11-24 06:22] LABS: WHITE BLOOD COUNT (AUTO) 1.3 K/uL (3.6-10.2)
[2019-11-24 06:32] LABS: BILIRUBIN,TOTAL 0.8 mg/dL (0.2-1.0); CREATININE 0.8 mg/dL (0.6-1.3); MAGNESIUM 1.6 mg/dL (1.8-2.4); PHOSPHOROUS 3.7 mg/dL (2.5-4.9); TOTAL PROTEIN, SERUM 4.9 g/dL (6.4-8.2)
[2019-11-24 06:35] LABS: POTASSIUM 2.6 mmol/L (3.5-5.1)
[2019-11-24 07:41] LABS: EOSINOPHILS % (MANUAL) 3 % (0-8); LYMPHOCYTES % (MANUAL) 19 % (20-40); MONOCYTES % (MANUAL) 8 % (2-10); NEUTROPHILS % (MANUAL) 70 % (42-75)
[2019-11-24] MEDS: HYDROCORTISONE SOD SUCCINATE 100 MG/2 ML VIAL IV SCH ×2 (08:18→21:24)
[2019-11-24] MEDS: METOPROLOL TARTRATE 25 MG TABLET PO SCH ×2 (08:18→21:28)
[2019-11-24] MEDS: POTASSIUM CHLORIDE 10 MEQ TAB.PRT.SR PO SCH (08:18)
[2019-11-24] MEDS: CLOTRIMAZOLE 1% CREAM 30 GM TUBE TP SCH ×2 (08:19→17:15)
[2019-11-24] MEDS: ALLOPURINOL 100 MG TABLET PO SCH (08:19)
[2019-11-24] MEDS: ACYCLOVIR 200 MG CAPSULE PO SCH ×3 (08:19→16:39)
[2019-11-24] MEDS: FLUCONAZOLE 200 MG TABLET PO SCH (08:22)
[2019-11-24] MEDS ORDERED: POTASSIUM CHLORIDE 20 MEQ TAB.PRT.SR PO ONE (09:30)
[2019-11-24] MEDS: MAGNESIUM SULFATE/D5W 100 ML IV SCH ×2 (10:31→13:05)
[2019-11-24 11:31] VITALS: BP 157/79
[2019-11-24 16:00] VITALS: BP 149/74
[2019-11-24] MEDS: LEVOFLOXACIN 250 MG TABLET PO SCH (16:39)
[2019-11-24 20:07] VITALS: BP 156/78
[2019-11-24 20:08] VITALS: BP 170/85
[2019-11-24] MEDS ORDERED: CLONIDINE HCL 0.1 MG TABLET PO PRN (20:45)
[2019-11-24] MEDS ORDERED: ATORVASTATIN 20 MG TABLET PO SCH (21:00)
[2019-11-24] MEDS: TEMAZEPAM 15 MG CAPSULE PO PRN (21:25)
[2019-11-25 04:52] VITALS: BP 188/96
[2019-11-25] MEDS: LEVOTHYROXINE SODIUM 100 MCG TABLET PO SCH (06:01)
[2019-11-25] MEDS ORDERED: AMLODIPINE 5 MG TABLET PO SCH (09:00)
[2019-11-25 09:04] LABS: EOSINOPHILS # (AUTO) 0.1 K/uL (0.0-0.7); HEMOGLOBIN 9.4 g/dL (12.5-16.3); LYMPHOCYTES # (AUTO) 0.3 K/uL (20.0-40.0); MEAN CORPUSCULAR VOLUME 98.3 fL (73.0-96.2); MONOCYTES # (AUTO) 0.1 K/uL (2.0-10.0); NEUTROPHILS # (AUTO) 0.9 K/uL (1.8-8.9)
[2019-11-25 09:06] LABS: BILIRUBIN,TOTAL 0.8 mg/dL (0.2-1.0); CREATININE 0.8 mg/dL (0.6-1.3); MAGNESIUM 1.6 mg/dL (1.8-2.4); PHOSPHOROUS 3.5 mg/dL (2.5-4.9); TOTAL PROTEIN, SERUM 5.4 g/dL (6.4-8.2)
[2019-11-25 09:09] LABS: POTASSIUM 2.7 mmol/L (3.5-5.1)
[2019-11-25 09:13] LABS: BASOPHILS % (AUTO) 0.4 % (0.0-2.0); EOSINOPHILS % (AUTO) 4.8 % (0.0-7.0); HEMATOCRIT 26.6 % (36.7-47.1); LYMPHOCYTES % (AUTO) 22.8 % (20.5-51.5); MEAN CORPUSCULAR HEMOGLOBIN 34.8 uug (23.8-33.4); MEAN CORPUSCULAR HGB CONC 35 g/dL (32.5-36.3); MONOCYTES % (AUTO) 5.9 % (0.0-11.0); NEUTROPHILS % (AUTO) 66.1 % (38.5-71.5); RED BLOOD CELL COUNT(AUTO) 2.71 MIL/uL (4.06-5.63)
[2019-11-25 09:27] LABS: PLATELET COUNT (AUTO) 112 K/uL (152-348); WHITE BLOOD COUNT (AUTO) 1.3 K/uL (3.6-10.2)
[2019-11-25] MEDS ORDERED: POTASSIUM CHLORIDE 20 MEQ TAB.PRT.SR PO ONE (10:30)
[2019-11-25 10:36] LABS: BAND % (MANUAL) 5 % (0-10); EOSINOPHILS % (MANUAL) 7 % (0-8); LYMPHOCYTES % (MANUAL) 21 % (20-40); MONOCYTES % (MANUAL) 3 % (2-10); MYELOCYTES % 1 % (0-0); NEUTROPHILS % (MANUAL) 62 % (42-75)
[2019-11-25 10:42] LABS: REACTIVE LYMPHOCYTES 1 % (0-0)
[2019-11-25 10:46] VITALS: BP 145/79
[2019-11-25] MEDS: FLUCONAZOLE 200 MG TABLET PO SCH (10:49)
[2019-11-25] MEDS: METOPROLOL TARTRATE 25 MG TABLET PO SCH ×2 (10:50→20:05)
[2019-11-25] MEDS: POTASSIUM CHLORIDE 10 MEQ TAB.PRT.SR PO SCH ×3 (10:50→13:40)
[2019-11-25] MEDS: ACYCLOVIR 200 MG CAPSULE PO SCH ×3 (10:50→18:02)
[2019-11-25] MEDS: ALLOPURINOL 100 MG TABLET PO SCH (10:51)
[2019-11-25] MEDS: CLOTRIMAZOLE 1% CREAM 30 GM TUBE TP SCH ×2 (10:51→18:03)
[2019-11-25] MEDS: MAGNESIUM SULFATE/D5W 100 ML IV SCH ×2 (12:23→13:40)
[2019-11-25] MEDS: LEVOFLOXACIN 250 MG TABLET PO SCH (18:02)
[2019-11-25 20:05] VITALS: BP 156/85
[2019-11-25] MEDS ORDERED: HYDROCORTISONE SOD SUCCINATE 100 MG/2 ML VIAL IV SCH (21:00)
== END 2019-11-25 21:00 | disposition short-term general hospital (02) | DRG 73 ==
LOC: ER 19:43 → TELE3 21:36 → MEDSURG3 11-20 06:37
PROVIDERS: ADMIT Nurse Practitioner Acute Care; ATTEND Internal Medicine
PROC: 30233N1 Transfusion of Nonautologous Red Blood Cells into Peripheral Vein, Percutaneous Approach (ICD-10-PCS; principal; 2019-11-19)
DX: G90.8 Other disorders of autonomic nervous system (principal); E43 Unspecified severe protein-calorie malnutrition; J18.9 Pneumonia, unspecified organism; E27.3 Drug-induced adrenocortical insufficiency; D61.818 Other pancytopenia; E87.1 Hypo-osmolality and hyponatremia; D68.69 Other thrombophilia; M62.82 Rhabdomyolysis; I50.32 Chronic diastolic (congestive) heart failure; Z16.24 Resistance to multiple antibiotics; N13.30 Unspecified hydronephrosis; K51.90 Ulcerative colitis, unspecified, without complications; E87.2 Acidosis; I95.1 Orthostatic hypotension; T38.0X5A Adverse effect of glucocorticoids and synthetic analogues, initial encounter; E78.5 Hyperlipidemia, unspecified; E89.0 Postprocedural hypothyroidism; K21.9 Gastro-esophageal reflux disease without esophagitis; E83.42 Hypomagnesemia; K76.0 Fatty (change of) liver, not elsewhere classified; K44.9 Diaphragmatic hernia without obstruction or gangrene; I25.2 Old myocardial infarction; I11.0 Hypertensive heart disease with heart failure; Z85.118 Personal history of other malignant neoplasm of bronchus and lung; Z85.46 Personal history of malignant neoplasm of prostate; Z85.850 Personal history of malignant neoplasm of thyroid; N28.1 Cyst of kidney, acquired; E87.6 Hypokalemia; S80.12XA Contusion of left lower leg, initial encounter; S80.11XA Contusion of right lower leg, initial encounter; X58.XXXA Exposure to other specified factors, initial encounter; Y93.9 Activity, unspecified; Z79.52 Long term (current) use of systemic steroids; D46.9 Myelodysplastic syndrome, unspecified; D75.89 Other specified diseases of blood and blood-forming organs; R50.81 Fever presenting with conditions classified elsewhere; Z79.82 Long term (current) use of aspirin; Z68.22 Body mass index [BMI] 22.0-22.9, adult; Y92.009 Unspecified place in unspecified non-institutional (private) residence as the place of occurrence of the external cause
CPT/HCPCS: 36415; 70030-TC; 71045; 76705; 82533; 83605; 83615; 83690; 83735; 84100; 85025; 85610; 85730; 86850; 86900; 86901; 86920; 87040; 93005; A4663; G0378; J1200; J1720; J3475; J7030; J7040; J8499; P9016-BL; P9021